=== PATIENT | female | born 1945 | race Caucasian/White ===

== ENCOUNTER 2023-07-03 16:07 | Inpatient (IN) ==
--- NOTE | 2023-07-03 16:27 | ED Triage Note ---
Date of Service July 03, 2023 History of Present Illness This patient was briefly evaluated while in triage. An abbreviated physical exam was performed. This patient is a 77-year-old Female who presents to the ED for evaluation of abdominal pain. She notes pain to the R side of the abdomen. Started after lunch time today. Pain persists. No hx of bowel blockage or heart attack. She notes vomit, white mucus like. Physical Exam GENERAL: 77 year old female. In no acute distress. SKIN: No lesions or rashes. HEART: Regular rate and rhythm. LUNGS: Clear to auscultation. ABDOMEN: Bowel sounds normoactive. No guarding or rigidity. RUQ abd ttp noted. NEURO: Alert and oriented. No deficits. MUSCULOSKELETAL: No deformities to inspection of the extremities. PSYCH: Patient is pleasant and answers all questions appropriately. Initial orders for labs and / or imaging were placed and patient was placed in the waiting area until a bed is available. Please see further documentation for the full ED course.
[2023-07-03 16:56] LABS: Basophils # (auto) 0.05 K/uL (0.00-0.20); Basophils % (auto) 0.5 %; Eosinophils # (auto) 0.01 K/uL (0.00-0.50); Eosinophils % (auto) 0.1 %; Hematocrit (blood only) 48.6 % (37.0-47.0); Hemoglobin 16.5 g/dl (12.0-16.0); Immature Granulocytes % (auto) 0.9 %; Lymphocytes # (auto) 0.78 K/uL (1.20-3.40); Lymphocytes % (auto) 7.1 %; Mean Corpuscular Hemoglobin 34.4 pg (25.0-34.0); Mean Corpuscular Volume 101.5 fL (80.0-100.0); Mean Platelet Volume 9.6 fL (9.4-12.4); Monocytes # (auto) 0.36 K/uL (0.11-0.59); Monocytes % (auto) 3.3 %; Neutrophils # (auto) 9.69 K/uL (1.40-6.50); Neutrophils % (auto) 88.1 %; Platelet Count 592 K/uL (130-400); RDW Coefficient of Variation 13.5 % (11.5-14.5); RDW Standard Deviation 50.8 fL (36.4-46.3); Red Blood Count 4.79 M/uL (4.20-5.40); White Blood Count 10.99 K/ul (4.8-10.8)
[2023-07-03 17:04] LABS: Albumin Globulin Ratio 1.6 (0.9-2); Albumin Level 4.6 gm/dl (3.4-5.0); Bilirubin,Total 0.5 mg/dl (0.2-1.0); Calcium 10.3 mg/dl (8.6-10.3); Creatinine Clr Calc Pharmacy 46.4 ml/min; Est GFR (African American) 68.3 ml/min; Est GFR (Non-African American) 58.9 ml/min; Globulin 2.8 gm/dl (2.5-4.0); Potassium 4.3 mmol/L (3.5-5.1); Total Protein 7.4 gm/dl (6.0-8.3)
[2023-07-03] MEDS ORDERED: ONDANSETRON INJ 2 MG/ML 2 ML VIAL IV STA (17:45)
[2023-07-03] MEDS ORDERED: OPTIRAY 320 100ml IV ONE (18:01)
--- NOTE | 2023-07-03 19:04 | Emergency Department Note ---
Impression & Plan Abdominal pain, RLQ, Non-ST elevation [place] (NSTEMI) ED Provider Note HISTORY OF PRESENT ILLNESS: Patient is a 77-year-old female presenting with right lower quadrant abdominal pain. Patient reports that she developed pain around her periumbilical region after lunch that radiated into her right lower quadrant. Pain persisted throughout the afternoon, prompting presentation to the ER. She had an episode of vomiting in the waiting room. Denies any chest pain or shortness of breath. Reports she always has diarrhea. Denies any history of abdominal surgeries. She is on Eliquis for previous history of DVT. Denies any history of cardiac stents. Denies any recent fevers. Denies any recent travel. Denies any recent sick contact exposure. ROS: as above PHYSICAL EXAM: Constitutional: Patient appears in no acute distress. HENT: Head: Normocephalic and atraumatic. Eyes: EOMI, PERRL Mouth/Throat: Mucous membranes moist. Neck: Trachea midline. Neck supple. Cardiovascular: RRR, No murmurs, rubs or gallops. Intact distal pulses. Pulmonary/Chest: No respiratory distress. Breath sounds clear and equal bilaterally. No wheezes or rales. Abdominal: Abdomen soft, no rebound or guarding. RLQ TTP Musculoskeletal: No edema, tenderness or deformity noted. Skin: Warm and dry. No rash, erythema, pallor or cyanosis Psychiatric: Appropriate mood and affect for situation. Neurological: Alert and keenly responsive. CN II-XII grossly intact, moving all extremities equally and fully. MDM: - Vitals signs showed hypertension and bradycardia. - History obtained via patient. Patient presents with right lower quadrant abdominal pain and vomiting. Patient reports that just after lunchtime she developed pain around her periumbilical region that radiated into her right lower quadrant. She had a few episodes of vomiting today. Denies any chest pain or shortness of breath. Denies any history of abdominal surgeries. She has chronic diarrhea. Denies any fevers in the last few days. Denies any history of cardiac stents. She does have a history of DVT and is on Eliquis. - Chronic conditions affecting care: breast cancer; BAYLEE; GERD; essential thrombocytosis - Differential diagnoses include, but are not limited to: appendicitis; diverticulitis; ureteral calculi; UTI; ACS - Order placed for continuous cardiac monitoring. At this time, monitor showed rate of 77 bpm with normal sinus rhythm, per my interpretation. - External medical records reviewed. Patient's primary care visit note from [facility] dated 05/15/2023 was reviewed. Patient was seen for her annual follow-up appointment. - EKG reviewed by myself showed normal sinus rhythm. Rate bradycardic at 48 bpm. QTc 432. No acute ischemic changes. No previous EKGs to compare to. - Laboratory workup interpreted by myself showed slight leukocytosis (WBC 10.99); thrombocytosis (plt 592); stable electrolytes; elevated troponin (109); normal lipase - CT abdomen/pelvis with IV contrast showed normal appendix and no bowel obstruction. Noted to have scattered small and large bowel air-fluid levels which may represent an ileus. - Patient had vomited in waiting room and was given 4 mg IV zofran. On my initial assessment, patient reports no further nausea and declines any pain medications at this time. - Discussed results with the patient. She reports that she has not had an echocardiogram or cardiac work-up. She is chest pain-free in the emergency department - Heart score 5 (History +0 slightly suspicious; EKG +0; Age +2; Risk factors +1; Initial troponin +2), amounting to a moderate score. - Discussion was had with out of school hours care worker about patient's case and need for admission - Hospitalist consulted for admission - Patient admitted to [facility] Hospitalist service for further evaluation and management. ASSESSMENT AND PLAN: Diagnosis: RLQ abdominal pain; NSTEMI Plan: admit Past Med/Surg History Social History Smoking Status: Former smoker Feels Safe at Home: Yes Allergies Allergies Allergy/AdvReac Type Severity Reaction Status Date / Time adhesive tape Allergy Unknown Verified 07/03/23 19:32 mold Allergy Unknown Verified 07/03/23 19:32 Home Meds Home Medications Medication Instructions Recorded Confirmed apixaban 5 mg tablet (Eliquis) 5 mg PO AMHS 07/03/23 07/03/23 dicyclomine 10 mg capsule 10 mg PO AMHS PRN Abdominal 07/03/23 07/03/23 Discomfort fluticasone propionate 50 2 spray intranasal DAILY 07/03/23 07/03/23 mcg/actuation nasal spray,suspension hydroxyurea 500 mg capsule See Rx Instructions .Route .COMPLEX 07/03/23 07/03/23 ipratropium bromide 21 mcg (0.03 2 spray intranasal AMHS PRN 07/03/23 07/03/23 %) nasal spray rhinitis multivitamin (Multiple Vitamins 1 tab PO DAILY 07/03/23 07/03/23 tablet) omeprazole 20 mg capsule,delayed 20 mg PO HS 07/03/23 07/03/23 release Results & Data (ED) Vital Signs Vital Signs - 24 hr 07/03/23 16:26 07/03/23 18:48 07/03/23 19:03 Temperature 36.4 C L Temperature Source Temporal Artery Scan Pulse Rate 56 L 77 Pulse Rate [Apical] 69 Respiratory Rate 16 20 Respiratory Effort / Characteristics Non-Labored Spontaneous Respiratory Depth Normal Blood Pressure 147/69 H Blood Pressure [Left Arm] 139/67 Blood Pressure Mean 95 Blood Pressure Mean [Left Arm] 91 Pulse Oximetry 100 97 Oxygen Delivery Method Room Air Room Air Sepsis Recent Fever Within 48 Hours No Sepsis New/Unexplained Change in Mental Status No Sepsis Action Taken by Nursing No Action Required Laboratory Data 07/03/23 16:32 07/03/23 16:32 Lab Results 07/03/23 Range/Units 16:32 WBC 10.99 H (4.8-10.8) K/ul RBC 4.79 (4.20-5.40) M/uL Hgb 16.5 H (12.0-16.0) g/dl Hct 48.6 H (37.0-47.0) % MCV 101.5 H (80.0-100.0) fL MCH 34.4 H (25.0-34.0) pg MCHC 34.0 (32.0-36.0) g/dL RDW Std Deviation 50.8 H (36.4-46.3) fL RDW Coeff of Melissa 13.5 (11.5-14.5) % Plt Count 592 H (130-400) K/uL MPV 9.6 (9.4-12.4) fL Immature Gran % (Auto) 0.9 % Neut % (Auto) 88.1 % Lymph % (Auto) 7.1 % [place] % (Auto) 3.3 % Eos % (Auto) 0.1 % Baso % (Auto) 0.5 % Neut # (Auto) 9.69 H (1.40-6.50) K/uL Lymph # (Auto) 0.78 L (1.20-3.40) K/uL [place] # (Auto) 0.36 (0.11-0.59) K/uL Eos # (Auto) 0.01 (0.00-0.50) K/uL Baso # (Auto) 0.05 (0.00-0.20) K/uL Immature Gran # (Auto) 0.10 (0.01-0.20) K/uL Sodium 141 (136-145) mmol/L Potassium 4.3 (3.5-5.1) mmol/L Chloride 102 (98-107) mmol/L Carbon Dioxide 29 (21-32) mmol/L Anion Gap 10 (3-11) BUN 16 (6-23) mg/dl Creatinine 0.94 (0.6-1.2) mg/dl Est Cr Clr Drug Dosing 46.4 ml/min Est GFR ( Amer) 68.3 ml/min Est GFR (Non-Af Amer) 58.9 ml/min BUN/Creatinine Ratio 17.0 (10-20) Glucose 150 H (70-99(Fasting)) mg/dl Calcium 10.3 (8.6-10.3) mg/dl Total Bilirubin 0.5 (0.2-1.0) mg/dl AST 24 (13-39) U/L ALT 16 (7-52) U/L Alkaline Phosphatase 65 (34-104) U/L Troponin I High Sens 109.0 H* (0-14) pg/ml Total Protein 7.4 (6.0-8.3) gm/dl Albumin 4.6 (3.4-5.0) gm/dl Globulin 2.8 (2.5-4.0) gm/dl Albumin/Globulin Ratio 1.6 (0.9-2) Lipase 11 (11-82) U/L Administered Medications Discontinued Medications Ioversol (Optiray 320 100ml) 93 ml IV ONCE ONE Stop: 07/03/23 18:02 Last Admin: 07/03/23 18:01 Dose: 93 ml Documented By: ESSENCE Ondansetron HCl (Ondansetron Inj 2 Mg/Ml 2 Ml Vial) 4 mg IV NOW STA Stop: 07/03/23 17:46 Last Admin: 07/03/23 17:50 Dose: 4 mg Documented By: AARON Imaging Data Radiologist's Impression: Abdomen/Pelvis CT 07/03/23 16:[address] WITH IV CONTRAST CT DOSE: 736.38 mGy.cm HISTORY: Acute right upper quadrant abdominal pain R periumbilical/RUQ abd pain TECHNIQUE: Multiaxial CT images of the abdomen and pelvis were performed following the IV administration of 93 cc of Optiray, A dose lowering technique was utilized adhering to the principles of ALARA. COMPARISON STUDY: GI study 09/16/2021 FINDINGS: Clear lung bases. No free air identified. The spleen is enlarged measuring up to 13.5 cm is in length. There is a small amount of abdominal pelvic ascites. Unremarkable pancreas and adrenal glands. 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 Unremarkable gallbladder and mildly enlarged liver. Patent portal vein. Cysts of the kidneys measure up to 5.8 cm on the left. No hydronephrosis. Unremarkable urinary bladder. Hysterectomy. No abdominal aortic aneurysm or lymphadenopathy. Postoperative changes at the gastroesophageal junction. Mild mesenteric edema. Scattered small and large bowel air-fluid levels. Limited study without the use of enteric contrast. Noninflamed appendix. Unremarkable soft tissues. Lumbar levoscoliosis. No acute fracture. IMPRESSION: 1. No bowel obstruction or pneumoperitoneum. 2. Scattered small and large bowel air-fluid levels may be physiologic or represent an ileus/enteritis. 3. Small volume of abdominopelvic ascites. 4. Limited exam without use of enteric contrast. No CT evidence of acute appendicitis. 5. Mild Hepatosplenomegaly. ACT 112: Negative or not required by law. The above report was generated using voice recognition software. It may contain grammatical, syntax or spelling errors. Electronically signed by: Gulshan Santamaria M.D. 07/03/2023 7:04 PM Discharge Plan Visit Data Chief Complaint: Abdominal Pain Stated Complaint: ABDOMINAL PAIN, CHILLS, HOT FLASHES, CONGESTION ED Provider: Linda Pradhan Discharge Problem: Abdominal pain, RLQ, Non-ST elevation MN (NSTEMI) Forms Stand Alone Forms: [employer] [facility] [employer] Prescriptions Prescriptions: No Action hydroxyurea 500 mg capsule See Rx Instructions .ROUTE .COMPLEX Rx Instructions: take 1 capsule by mouth alternating with 2 capsules by mouth every other day taking 6 days a week omeprazole 20 mg capsule,delayed release(DR/EC) 20 mg PO HS Eliquis 5 mg tablet 5 mg PO AMHS multivitamin [Multiple Vitamins] Tablet 1 tab PO DAILY dicyclomine 10 mg capsule 10 mg PO AMHS PRN (Reason: Abdominal Discomfort) Rx Instructions: ordered routine...pt takes prn fluticasone propionate 50 mcg/actuation spray,suspension 2 spray INTRANASAL DAILY ipratropium bromide 21 mcg (0.03 %) spray,non-aerosol 2 spray INTRANASAL AMHS PRN (Reason: rhinitis) Referrals Referrals: Andressa Bernal MD [Primary Care Provider] -
--- NOTE | 2023-07-03 19:06 | CT Scan Report ---
ABDOMEN AND PELVIS CT WITH IV CONTRAST CT DOSE: 736.38 mGy.cm HISTORY: Acute right upper quadrant abdominal pain R periumbilical/RUQ abd pain TECHNIQUE: Multiaxial CT images of the abdomen and pelvis were performed following the IV administrat ion of 93 cc of Optiray, A dose lowering technique was utilized adhering to the principles of ALARA. COMPARISON STUDY: GI study 09/16/2021 FINDINGS: Clear lung bases. No free air identified. The spleen is enlarged measuring up to 13.5 cm is in length. There is a small amount of abdominal pelvic ascites. Unremarkable pancreas and adrenal gl ands. 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 Unremarkable gallb ladder and mildly enlarged liver. Patent portal vein. Cysts of the kidneys measure up to 5.8 cm on the left. No hydronephrosis. Unremarkable urinary bladde r. Hysterectomy. No abdominal aortic aneurysm or lymphadenopathy. Postoperative changes at the gastro esophageal junction. Mild mesenteric edema. Scattered small and large bowel air-fluid levels. Limited study without the use of enteric contrast. Noninflamed appendix. Unremarkable soft tissues. Lumbar l evoscoliosis. No acute fracture. IMPRESSION: 1. No bowel obstruction or pneumoperitoneum. 2. Scattered small and large bowel air-fluid levels may be physiologic or represent an ileus/enteriti s. 3. Small volume of abdominopelvic ascites. 4. Limited exam without use of enteric contrast. No CT evidence of acute appendicitis. 5. Mild Hepatosplenomegaly. ACT 112: Negative or not required by law. The above report was generated using voice recognition software. It may contain grammatical, syntax o r spelling errors. Electronically signed by: Gulshan Santamaria M.D. 07/03/2023 7:04 PM
[2023-07-03] MEDS ORDERED: ASPIRIN CHEW 324 MG PO STA (19:57)
--- NOTE | 2023-07-03 21:18 | History & Physical Report ---
Date of Service July 03, 2023 Assessment & Plan (1) Non-ST elevation [place] (NSTEMI): Plan: 77-year-old female with past med significant for paraesophageal hernia s/p repair, obstructive sleep apnea, GERD, mixed stress and urge incontinence, essential thrombocytosis, history of right breast cancer, history of basal cell carcinoma s/p excision presents with abdominal pain and found to have elevated troponin. Non-ST elevated MA Initial troponin 109. Troponin trending up to 299 and 470 Patient is currently symptomatic EKG sinus bradycardia but no other acute findings will follow repeat ekg Patient is already on Eliquis Close monitoring telemetry Serial cardiac enzymes and echo Cardiology consulted Obstructive sleep apnea CPAP nightly Abdominal pain CT scan showing possible ileus versus enteritis Currently pain improved We will keep her n.p.o. IV fluids IV morphine as needed Close monitor History of thrombocytosis On hydroxyurea History of right breast cancer S/p right partial mastectomy and chemo radiation 1993 History of DVT On Eliquis DVT prophylaxis On Eliquis Disposition telemetry floor Full code History of Present Illness Chief Complaint: Abdominal pain Primary Care Provider: Andressa Bernal MD 77-year-old female with past med history significant for paraesophageal hernia s/p repair, obstructive sleep apnea, GERD, mixed stress and urge incontinence, essential thrombocytosis, history of right breast cancer, history of basal cell carcinoma s/p excision presents with abdominal pain. Patient states pain started after lunch in the umbilical region and then in right lower quadrant 10/10 in severity. Associated with some nausea. No diarrhea. Denies any chest pain or shortness of breath. No fevers. Has some runny nose. Currently pain improved. Currently resting comfortably and hemodynamically stable. Past medical history. As mentioned above Past surgical history. Right breast biopsy. Left breast biopsy. Colonoscopy. EGD. Laparoscopic insertion of esophageal sphincter. Right partial mastectomy. Paraesophageal hernia repair. Right breast radiation treatment. [place] lymph node biopsy. Social history. Quit smoking 1973. Smoked 0.1 packs a day for 10 years. Alcohol socially. No drug use. Family history. Daughter has allergies. Salience Sjogren's. Mother had breast cancer. Hypertension. Stroke. Allergies Allergy/AdvReac Type Severity Reaction Status Date / Time adhesive tape Allergy Unknown Verified 07/03/23 19:32 mold Allergy Unknown Verified 07/03/23 19:32 Home Medications Medication Instructions Recorded Confirmed Type apixaban 5 mg tablet (Eliquis) 5 mg PO AMHS 07/03/23 07/03/23 History dicyclomine 10 mg capsule 10 mg PO AMHS PRN Abdominal 07/03/23 07/03/23 History Discomfort fluticasone propionate 50 2 spray intranasal DAILY 07/03/23 07/03/23 History mcg/actuation nasal spray,suspension hydroxyurea 500 mg capsule See Rx Instructions .Route .COMPLEX 07/03/23 07/03/23 History ipratropium bromide 21 mcg (0.03 2 spray intranasal AMHS PRN 07/03/23 07/03/23 History %) nasal spray rhinitis multivitamin (Multiple Vitamins 1 tab PO DAILY 07/03/23 07/03/23 History tablet) omeprazole 20 mg capsule,delayed 20 mg PO HS 07/03/23 07/03/23 History release Past Med/Surg History Social History Smoking Status: Never smoker Hx Alcohol Use: Yes Alcohol type: wine Hx Substance Use: No Preferred Language: [employer] Operator Required: No Beliefs That Will Affect Care: None Current Living Situation: Alone Other Information That Helps Us Care for You: No Feels Safe at Home: Yes Safety Concerns: Feels Safe At This Time Review of Systems Review of Systems: All systems reviewed & are unremarkable except as noted in HPI & below Physical Exam Physical Exam: General- Not in distress. Head- atraumatic Eyes- PERRL. ENT- oropharynx clear Neck- supple, no JVD. Lungs- clear to auscultation no wheezing or crackles. Heart- regular rhythm; no murmur, no gallop. Abdomen- normal bowel sounds, soft, mild diffuse discomfort,no guarding, no distension Extremities- no pretibial edema, no erythema seen. Neuro- alert, oriented x 3; PERRL, no facial palsy; no dysarthria. Skin- warm & dry Results & Data Results & Data Vital Signs (Past 12 Hours) Vital Signs Temp Pulse Pulse Resp BP BP Pulse Ox 07/03/23 20:00 76 16 153/84 H 95 07/03/23 19:03 77 07/03/23 18:48 69 20 139/67 97 07/03/23 16:26 36.4 C L 56 L 16 147/69 H 100 O2 Del Method 07/03/23 20:00 Room Air 07/03/23 19:03 07/03/23 18:48 Room Air 07/03/23 16:26 Room Air Diagnostic Findings Laboratory Results WBC 10.99 K/ul (4.8-10.8) H 07/03/23 16:32 RBC 4.79 M/uL (4.20-5.40) 07/03/23 16:32 Hgb 16.5 g/dl (12.0-16.0) H 07/03/23 16:32 Hct 48.6 % (37.0-47.0) H 07/03/23 16:32 MCV 101.5 fL (80.0-100.0) H 07/03/23 16: MCH 34.4 pg (25.0-34.0) H 07/03/23 16: MCHC 34.0 g/dL (32.0-36.0) 07/03/23 16: RDW Std Deviation 50.8 fL (36.4-46.3) H 07/03/23 16: RDW Coeff of Melissa 13.5 % (11.5-14.5) 07/03/23 16: Plt Count 592 K/uL (130-400) H 07/03/23 16: MPV 9.6 fL (9.4-12.4) 07/03/23 16:32 Immature Gran % (Auto) 0.9 % 07/03/23 16: Neut % (Auto) 88.1 % 07/03/23 16: Lymph % (Auto) 7.1 % 07/03/23 16: [place] % (Auto) 3.3 % 07/03/23 16: Eos % (Auto) 0.1 % 07/03/23 16:32 Baso % (Auto) 0.5 % 07/03/23 16: Neut # (Auto) 9.69 K/uL (1.40-6.50) H 07/03/23 16: Lymph # (Auto) 0.78 K/uL (1.20-3.40) L 07/03/23 16:32 [place] # (Auto) 0.36 K/uL (0.11-0.59) 07/03/23 16: Eos # (Auto) 0.01 K/uL (0.00-0.50) 07/03/23 16:32 Baso # (Auto) 0.05 K/uL (0.00-0.20) 07/03/23 16:32 Immature Gran # (Auto) 0.10 K/uL (0.01-0.20) 07/03/23 16:32 Sodium 141 mmol/L (136-145) 07/03/23 16:32 Potassium 4.3 mmol/L (3.5-5.1) 07/03/23 16:32 Chloride 102 mmol/L (98-107) 07/03/23 16:32 Carbon Dioxide 29 mmol/L (21-32) 07/03/23 16:32 Anion Gap 10 (3-11) 07/03/23 16:32 BUN 16 mg/dl (6-23) 07/03/23 16:32 Creatinine 0.94 mg/dl (0.6-1.2) 07/03/23 16:32 Est Cr Clr Drug Dosing 46.4 ml/min 07/03/23 16:32 Est GFR ( Amer) 68.3 ml/min 07/03/23 16:32 Est GFR (Non-Af Amer) 58.9 ml/min 07/03/23 16:32 BUN/Creatinine Ratio 17.0 (10-20) 07/03/23 16:32 Glucose 150 mg/dl (70-99(Fasting)) H 07/03/23 16:32 Calcium 10.3 mg/dl (8.6-10.3) 07/03/23 16:32 Total Bilirubin 0.5 mg/dl (0.2-1.0) 07/03/23 16:32 AST 24 U/L (13-39) 07/03/23 16:32 ALT 16 U/L (7-52) 07/03/23 16:32 Alkaline Phosphatase 65 U/L (34-104) 07/03/23 16:32 Troponin I High Sens 299.0 pg/ml (0-14) H* D 07/03/23 19:10 Total Protein 7.4 gm/dl (6.0-8.3) 07/03/23 16:32 Albumin 4.6 gm/dl (3.4-5.0) 07/03/23 16:32 Globulin 2.8 gm/dl (2.5-4.0) 07/03/23 16:32 Albumin/Globulin Ratio 1.6 (0.9-2) 07/03/23 16:32 Lipase 11 U/L (11-82) 07/03/23 16:32 Impressions Abdomen/Pelvis CT 07/03/23 16:[address] WITH IV CONTRAST CT DOSE: 736.38 mGy.cm HISTORY: Acute right upper quadrant abdominal pain R periumbilical/RUQ abd pain TECHNIQUE: Multiaxial CT images of the abdomen and pelvis were performed following the IV administration of 93 cc of Optiray, A dose lowering technique was utilized adhering to the principles of ALARA. COMPARISON STUDY: GI study 09/16/2021 FINDINGS: Clear lung bases. No free air identified. The spleen is enlarged measuring up to 13.5 cm is in length. There is a small amount of abdominal pelvic ascites. Unremarkable pancreas and adrenal glands. 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 Unremarkable gallbladder and mildly enlarged liver. Patent portal vein. Cysts of the kidneys measure up to 5.8 cm on the left. No hydronephrosis. Unremarkable urinary bladder. Hysterectomy. No abdominal aortic aneurysm or lymphadenopathy. Postoperative changes at the gastroesophageal junction. Mild mesenteric edema. Scattered small and large bowel air-fluid levels. Limited study without the use of enteric contrast. Noninflamed appendix. Unremarkable soft tissues. Lumbar levoscoliosis. No acute fracture. IMPRESSION: 1. No bowel obstruction or pneumoperitoneum. 2. Scattered small and large bowel air-fluid levels may be physiologic or represent an ileus/enteritis. 3. Small volume of abdominopelvic ascites. 4. Limited exam without use of enteric contrast. No CT evidence of acute appendicitis. 5. Mild Hepatosplenomegaly. ACT 112: Negative or not required by law. The above report was generated using voice recognition software. It may contain grammatical, syntax or spelling errors. Electronically signed by: Gulshan Santamaria M.D. 07/03/2023 7:04 PM ECG Additional Comments: ECG. Sinus bradycardia rate of 48. No acute ST changes seen. Code Status & VTE Plan VTE Prophylaxis Plan VTE Prophylaxis will be ordered: Yes
[2023-07-03] MEDS ORDERED: APIXABAN 5 MG TABLET PO STA (21:33)
[2023-07-03] MEDS ORDERED: NITROGLYCERIN SL 0.4 MG/TAB TAB SL PRN (22:26)
[2023-07-03] MEDS ORDERED: DICYCLOMINE HCL 10 MG CAP PO PRN (22:26)
[2023-07-03] MEDS ORDERED: MoRPHine SULFATE 4 MG/ML 1 ML CARP\\VIAL IV PRN (22:26)
[2023-07-03] MEDS ORDERED: PANTOprazole 40 MG TAB PO SCH (22:26)
[2023-07-03] MEDS ORDERED: ACETAMINOPHEN 325 MG TAB PO PRN (22:26)
[2023-07-03] MEDS ORDERED: ONDANSETRON INJ 2 MG/ML 2 ML VIAL IV PRN (22:26)
[2023-07-03 22:31] LABS: Appearance Urine Clear (Clear); Bilirubin Urine Negative (Negative); Blood Urine Negative (Negative); Color Urine Yellow; Glucose Urine UA Negative (Negative); Ketones Urine Negative (Negative); Leukocyte Esterase Urine Negative (Negative); Nitrite Urine Negative (Negative); Protein Urine Negative (Negative); Specific Gravity Urine > 1.045 (1.000-1.030); Urobilinogen Urine Negative (Negative)
[2023-07-03] MEDS: SODIUM CHLORIDE 0.9% 1,000 ML IV SCH (22:36)
[2023-07-03] MEDS ORDERED: IPRATROPIUM BROMIDE NASAL SPRAY 0.06% 15ML NAE PRN (22:45)
[2023-07-03] MEDS: HYDROXYUREA 500 MG CAP PO SCH (23:17)
[2023-07-04] MEDS: ASPIRIN 81 MG ECTAB PO SCH (08:05)
[2023-07-04] MEDS: MULTIVITAMIN TAB PO SCH (08:06)
[2023-07-04] MEDS: FLUTICASONE PROPIONATE NA SPR 16 GM BTL SCH (08:06)
[2023-07-04 09:00] LABS: BUN Creatinine Ratio 16.7 (10-20); Calcium 8.5 mg/dl (8.6-10.3); Chol HDL Ratio 1.8 (0-5); Creatinine Clr Calc Pharmacy 48.5 ml/min; Est GFR (African American) 85.6 ml/min; Est GFR (Non-African American) 73.8 ml/min; Magnesium 1.8 mg/dl (1.7-2.4); Potassium 3.9 mmol/L (3.5-5.1)
[2023-07-04] MEDS ORDERED: APIXABAN 5 MG TABLET PO SCH (09:00)
[2023-07-04 09:04] LABS: Basophils # (auto) 0.03 K/uL (0.00-0.20); Basophils % (auto) 0.4 %; Eosinophils # (auto) 0.01 K/uL (0.00-0.50); Eosinophils % (auto) 0.1 %; Hematocrit (blood only) 38.2 % (37.0-47.0); Hemoglobin 13.2 g/dl (12.0-16.0); Immature Granulocytes # (auto) 0.04 K/uL (0.01-0.20); Immature Granulocytes % (auto) 0.6 %; Lymphocytes # (auto) 0.72 K/uL (1.20-3.40); Lymphocytes % (auto) 10.4 %; Mean Corpuscular Hemoglobin 34.6 pg (25.0-34.0); Mean Corpuscular Hgb Conc 34.6 g/dL (32.0-36.0); Mean Corpuscular Volume 100.3 fL (80.0-100.0); Mean Platelet Volume 9.7 fL (9.4-12.4); Monocytes # (auto) 0.39 K/uL (0.11-0.59); Monocytes % (auto) 5.7 %; Neutrophils % (auto) 82.8 %; Platelet Count 380 K/uL (130-400); RDW Standard Deviation 51.4 fL (36.4-46.3); Red Blood Count 3.81 M/uL (4.20-5.40); White Blood Count 6.89 K/ul (4.8-10.8)
--- NOTE | 2023-07-04 09:06 | Electrocardiogram Report ---
Test Reason : Blood Pressure : / mmHG Vent. Rate : 075 BPM Atrial Rate : 075 BPM P-R Int : 156 ms QRS Dur : 080 ms QT Int : 398 ms P-R-T Axes : 073 004 041 degrees QTc Int : 444 ms Poor data quality, interpretation may be adversely affected Normal sinus rhythm Normal ECG When compared with ECG of 03-JUL-2023 21:48, No significant change Confirmed by Darrell Munoz ([id number]) on 07/04/2023 9:06:34 AM Referred By: REFERRED SELF Confirmed By:Darrell Munoz
--- NOTE | 2023-07-04 09:06 | Electrocardiogram Report ---
Test Reason : Blood Pressure : / mmHG Vent. Rate : 048 BPM Atrial Rate : 048 BPM P-R Int : 152 ms QRS Dur : 082 ms QT Int : 484 ms P-R-T Axes : 072 045 082 degrees QTc Int : 432 ms Sinus bradycardia Otherwise normal ECG No previous ECGs available Confirmed by Darrell Munoz ([id number]) on 07/04/2023 9:06:16 AM Referred By: REFERRED SELF Confirmed By:Darrell Munoz
--- NOTE | 2023-07-04 10:51 | Cardiology Progress Note ---
Date of Service July 04, 2023 Assessment & Plan Admission and Anticipated Discharge Date Admission Date: July 03, 2023 Supervising Physician Co-Signing Physician Notes Attending Staff: Pt seen and evaluated with AP Staff Concur with any observations and plans 77 yo woman presenting with epigastric discomfort * bubble/pressure in epigastric region * duration - hours * discomfort returned in AM on 07/04/2023 * Troponin elevated * Repeat Troponin pending * ECHO - normal LVEF - no WMA * EKG - WNL Med HX: * Paraesophageal hernia s/p surgical repair * R breast CA * Thrombocytosis Plans: * Elevation in Troponin consistent with NSTEMI * STOP DOAC * Start Heparin (no major bleeding) * Continue ASA 81 mg po per day * SBP marginal * Considering Low-dose beta israel when SBP allows. * LDL 37 * Start Crestor 20 mg po per day * NPO - * Will discuss with interventional Cardiology Mitesh Riley Subjective Events overnight: + Epigastric discomfort PACs - no VT Subjective: + Epigastric discomfort Review of Systems Review of Systems: All systems reviewed & are unremarkable except as noted in HPI & below Physical Exam Physical Exam: Thin woman in NAD No elevation in JVP S1S2 CTA B No C/C/E Results & Data Vital Signs (Past 12 Hours) Vital Signs Temp Pulse Pulse Resp BP Pulse Ox O2 Del Method 07/04/23 07:49 36.9 C 70 20 105/65 95 Room Air 07/04/23 07:00 73 07/04/23 02:59 36.9 C 69 16 115/71 94 Room Air 07/03/23 23:36 89 07/03/23 23:00 36.7 C 69 18 131/80 94 Room Air Laboratory Results Cardiac Enzymes 07/03/23 07/03/23 07/03/23 Range/Units 16:32 19:10 20:49 AST 24 (13-39) U/L Troponin I High Sens 109.0 H* 299.0 H* D 470.8 H* D (0-14) pg/ml Lipids 07/04/23 Range/Units 08:17 Triglycerides 117 (0-150) mg/dl Cholesterol 132 (0-200) mg/dl HDL Cholesterol 72 mg/dl Cholesterol/HDL Ratio 1.8 (0-5) CBC 07/03/23 07/04/23 Range/Units 16:32 08:17 WBC 10.99 H 6.89 (4.8-10.8) K/ul RBC 4.79 3.81 L (4.20-5.40) M/uL Hgb 16.5 H 13.2 D (12.0-16.0) g/dl Hct 48.6 H 38.2 (37.0-47.0) % Plt Count 592 H 380 (130-400) K/uL Neut # (Auto) 9.69 H 5.70 (1.40-6.50) K/uL Lymph # (Auto) 0.78 L 0.72 L (1.20-3.40) K/uL [place] # (Auto) 0.36 0.39 (0.11-0.59) K/uL Eos # (Auto) 0.01 0.01 (0.00-0.50) K/uL Baso # (Auto) 0.05 0.03 (0.00-0.20) K/uL Comprehensive Metabolic Panel 07/03/23 07/04/23 Range/Units 16:32 08:17 Sodium 141 141 (136-145) mmol/L Potassium 4.3 3.9 (3.5-5.1) mmol/L Chloride 102 108 H (98-107) mmol/L Carbon Dioxide 29 29 (21-32) mmol/L BUN 16 13 (6-23) mg/dl Creatinine 0.94 0.78 (0.6-1.2) mg/dl Glucose 150 H 92 (70-99(Fasting)) mg/dl Calcium 10.3 8.5 L (8.6-10.3) mg/dl AST 24 (13-39) U/L ALT 16 (7-52) U/L Alkaline Phosphatase 65 (34-104) U/L Total Protein 7.4 (6.0-8.3) gm/dl Albumin 4.6 (3.4-5.0) gm/dl Intake and Output 07/03/23 07/04/23 07/04/23 22:59 06:59 14:59 Output Total 175 / 175 Balance -175 / -175 Output: Urine 175 / 175 Other: Weight 56.4 kg 56.4 kg Weight Measurement Method Standing Scale Standing Scale Diagnostic Findings ECHOcardiogram: 07/04/2023 LVEF 60-65% No WMA RV function is WNL No major valvular pathology EKGs 07-03-2023 + 07-04-2023- reviewed - no major ischemic changes noted ABD CT: ? Ileus, S/P Surgical intervention. No other major pathology Medications Administered Current Inpatient Medications Acetaminophen (Acetaminophen 325 Mg Tab) 650 mg PO Q4H PRN PRN Reason: Pain or Fever Stop: 08/02/23 22:25 Apixaban (Apixaban 5 Mg Tablet) 5 mg PO [facility] PEDRO Stop: 08/03/23 08:59 Last Admin: 07/04/23 08:06 Dose: 5 mg Aspirin (Aspirin 81 Mg Ectab) 81 mg PO DAILY PEDRO Stop: 08/03/23 08:59 Last Admin: 07/04/23 08:05 Dose: 81 mg Dicyclomine HCl (Dicyclomine Hcl 10 Mg Cap) 10 mg PO AMHS PRN PRN Reason: Abdominal Discomfort Stop: 08/02/23 22:25 Fluticasone Propionate (Fluticasone Propionate Na Spr 16 Gm Btl) 2 sprays NA DAILY COUNT INCLUDES THE [facility] Stop: 08/03/23 08:59 Last Admin: 07/04/23 08:06 Dose: 2 sprays Hydroxyurea (Hydroxyurea 500 Mg Cap) 1,000 mg PO MoWeFr@2100 COUNT INCLUDES THE [facility] Stop: 08/02/23 22:59 Last Admin: 07/03/23 23:17 Dose: 1,000 mg Hydroxyurea (Hydroxyurea 500 Mg Cap) 1,000 mg PO TuThSa@2100 COUNT INCLUDES THE [facility] Stop: 08/03/23 20:59 Sodium Chloride (Nss) 1,000 mls @ 80 mls/hr IV .[id number] COUNT INCLUDES THE [facility] Stop: 08/02/23 22:25 Last Admin: 07/03/23 22:36 Dose: 80 mls/hr Ipratropium [place] (Ipratropium [place] Nasal [place] 0.06% 15ml) 1 sprays VANESSA [facility] PRN PRN Reason: rhinitis Stop: 08/02/23 22:44 Morphine Sulfate (Morphine Sulfate 4 Mg/Ml 1 Ml Carp\Vial) 3 mg IV Q4H PRN PRN Reason: Pain Stop: 07/17/23 22:25 Multivitamins (Multivitamin Tab) 1 tab PO DAILY PEDRO Stop: 08/03/23 08:59 Last Admin: 07/04/23 08:06 Dose: 1 tab Nitroglycerin (Nitroglycerin Sl 0.4 Mg/Tab Tab) 0.4 mg SL Q5M PRN PRN Reason: Chest Pain Stop: 08/02/23 22:25 Ondansetron HCl (Ondansetron Inj 2 Mg/Ml 2 Ml Vial) 4 mg IV Q6H PRN PRN Reason: Nausea Stop: 08/02/23 22:25 Pantoprazole Sodium (Pantoprazole 40 Mg Tab) 40 mg PO HS PEDRO Stop: 08/02/23 22:25 Last Admin: 07/03/23 23:17 Dose: 40 mg
--- NOTE | 2023-07-04 10:57 | Electrocardiogram Report ---
Test Reason : Blood Pressure : / mmHG Vent. Rate : 064 BPM Atrial Rate : 064 BPM P-R Int : 154 ms QRS Dur : 074 ms QT Int : 414 ms P-R-T Axes : 080 019 074 degrees QTc Int : 427 ms Normal sinus rhythm Normal ECG When compared with ECG of 03-JUL-2023 16:31, No significant change Confirmed by Darrell Munoz ([id number]) on 07/04/2023 10:56:49 AM Referred By: REFERRED SELF Confirmed By:Darrell Munoz
[2023-07-04] MEDS ORDERED: ALUMINUM/MAGNESIUM SUSP 30 ML UDC PO STA (11:01)
[2023-07-04] MEDS: SODIUM CHLORIDE 0.9% 1,000 ML IV SCH (12:29)
[2023-07-04] MEDS ORDERED: Heparin IV Adult Wt-Based Low-Dose *NO* Bolus Protocol IV SCH (14:00)
[2023-07-04] MEDS: PANTOprazole 40 MG TAB PO SCH ×2 (14:11→20:55)
--- NOTE | 2023-07-04 15:27 | Hospitalist Progress Note ---
Date of Service July 04, 2023 Assessment & Plan (1) Non-ST elevation OR (NSTEMI): Plan: 77-year-old female with past med significant for paraesophageal hernia s/p repair, obstructive sleep apnea, GERD, mixed stress and urge incontinence, essential thrombocytosis, history of right breast cancer, history of basal cell carcinoma s/p excision presents with abdominal pain and found to have elevated troponin. Non-ST elevated OR Initial troponin 109.Troponin trending up to 299 and 470 Troponins pending those are taken at 8:17 AM and 3:27 PM EKG sinus bradycardia but no other acute findings Repeat EKG did not show any change Patient is already on Eliquis who is has been on hold and the patient is started with intravenous heparin Close monitoring telemetry Echo of the heart showed-LV is normal in size the LV all motion is normal EF 60 to 65%, right ventricular systolic function normal, left atrial size is normal and right atrial size is normal. Appreciate cardiology input and recommendation Has been on intravenous heparin and oral aspirin Going to have cardiac cath tomorrow Epigastric pain CT scan showing possible ileus versus enteritis Currently pain improved We will keep her n.p.o. IV fluids IV morphine as needed Could be atypical presentation of angina with elevation of the troponin and in female We will get ultrasound of the liver to rule out any gallstones Obstructive sleep apnea CPAP nightly History of thrombocytosis On hydroxyurea History of right breast cancer S/p right partial mastectomy and chemo radiation 1993 History of DVT On Eliquis DVT prophylaxis On Eliquis Eliquis is on hold and has been on intravenous heparin for possible cardiac cath in the morning Disposition telemetry floor Full code Admission and Anticipated Discharge Date Admission Date: July 03, 2023 Subjective 07/04/2023 The patient was seen and examined in telemetry unit in presence of the daughter Still complains to epigastric discomfort that goes around the belly No chest pain, palpitation or shortness of breath associated with the Review of Systems Review of Systems: All systems reviewed and are unremarkable except as noted below Cardiovascular: Additional Comments: No chest pain or palpitation Gastrointestinal: Epigastric discomfort and minimal tenderness Physical Exam Physical Exam: Lying in bed with some anxiety but no apparent distress Constitutional: well developed, well nourished, + ill appearing and average body habitus Eyes: PERRL, conjunctivae normal, anicteric sclerae ENMT: external ear and nose normal, oropharynx normal Neck: trachea midline, no thyromegaly Respiratory: no respiratory distress Auscultation: lungs clear to auscultation bilaterally Cardiovascular: Rate/Rhythm: regular rate and regular rhythm; not tachycardic Heart Sounds: normal S1 and normal S2; no murmur Extremities: no edema Gastrointestinal (Abdomen): Inspection/Auscultation: normal bowel sounds; abdomen not distended Percussion/Palpation: + abdomen tender (Tender in the epigastrium) and abdomen soft Musculoskeletal: No acute arthritis involving any of the joint Neurologic: normal touch/pain/proprioception and moves all extremities; no focal motor deficits Psychiatric: A+Ox3, euthymic affect Lymphatic: no cervical or axillary lymphadenopathy Results & Data Results & Data Vital Signs (Past 12 Hours) Vital Signs Temp Pulse Pulse Resp BP Pulse Ox O2 Del Method 07/04/23 11:36 36.6 C 77 21 126/77 95 Room Air 07/04/23 09:00 Room Air 07/04/23 07:49 36.9 C 70 20 105/65 95 Room Air 07/04/23 07:00 73 Laboratory Results Short CBC 07/03/23 07/04/23 Range/Units 16:32 08:17 WBC 10.99 H 6.89 (4.8-10.8) K/ul Hgb 16.5 H 13.2 D (12.0-16.0) g/dl Hct 48.6 H 38.2 (37.0-47.0) % Plt Count 592 H 380 (130-400) K/uL BMP 07/03/23 07/04/23 16:32 08:17 Sodium 141 141 Potassium 4.3 3.9 Chloride 102 108 H Carbon Dioxide 29 29 BUN 16 13 Creatinine 0.94 0.78 Glucose 150 H 92 Calcium 10.3 8.5 L Liver Function 07/03/23 Range/Units 16:32 Total Bilirubin 0.5 (0.2-1.0) mg/dl AST 24 (13-39) U/L ALT 16 (7-52) U/L Alkaline Phosphatase 65 (34-104) U/L Albumin 4.6 (3.4-5.0) gm/dl Urine 07/03/23 Range/Units 22:02 Urine Color Yellow Urine Appearance Clear (Clear) Urine pH 7.0 (4.5-7.5) Ur Specific [place] > 1.045 H (1.000-1.030) Urine Protein Negative (Negative) Urine Glucose (UA) Negative (Negative) Medications Administered Current Inpatient Medications Acetaminophen (Acetaminophen 325 Mg Tab) 650 mg PO Q4H PRN PRN Reason: Pain or Fever Stop: 08/02/23 22:25 Aspirin (Aspirin 81 Mg Ectab) 81 mg PO DAILY [facility] Stop: 08/03/23 08:59 Last Admin: 07/04/23 08:05 Dose: 81 mg Dicyclomine HCl (Dicyclomine Hcl 10 Mg Cap) 10 mg PO AMHS PRN PRN Reason: Abdominal Discomfort Stop: 08/02/23 22:25 Fluticasone Propionate (Fluticasone Propionate Na Spr 16 Gm Btl) 2 sprays NA DAILY [facility] Stop: 08/03/23 08:59 Last Admin: 07/04/23 08:06 Dose: 2 sprays Hydroxyurea (Hydroxyurea 500 Mg Cap) 1,000 mg PO MoWeFr@2100 [facility] Stop: 08/02/23 22:59 Last Admin: 07/03/23 23:17 Dose: 1,000 mg Hydroxyurea (Hydroxyurea 500 Mg Cap) 1,000 mg PO TuThSa@2100 [facility] Stop: 08/03/23 20:59 Sodium Chloride (Nss) 1,000 mls @ 80 mls/hr IV .[id number] [facility] Stop: 08/02/23 22:25 Last Admin: 07/04/23 12:29 Dose: 80 mls/hr Heparin Sodium/Dextrose (Heparin Sodium/Dextrose) 25,000 units in 500 mls @ 13 mls/hr IV .Q24H [facility]; Protocol Stop: 08/03/23 19:59 Ipratropium [place] (Ipratropium [place] Nasal [place] 0.06% 15ml) 1 sprays VANESSA [facility]HS PRN PRN Reason: rhinitis Stop: 08/02/23 22:44 Morphine Sulfate (Morphine Sulfate 4 Mg/Ml 1 Ml Carp\Vial) 3 mg IV Q4H PRN PRN Reason: Pain Stop: 07/17/23 22:25 Multivitamins (Multivitamin Tab) 1 tab PO DAILY [facility] Stop: 08/03/23 08:59 Last Admin: 07/04/23 08:06 Dose: 1 tab Nitroglycerin (Nitroglycerin Sl 0.4 Mg/Tab Tab) 0.4 mg SL Q5M PRN PRN Reason: Chest Pain Stop: 08/02/23 22:25 Ondansetron HCl (Ondansetron Inj 2 Mg/Ml 2 Ml Vial) 4 mg IV Q6H PRN PRN Reason: Nausea Stop: 08/02/23 22:25 Pantoprazole Sodium (Pantoprazole 40 Mg Tab) 40 mg PO BID [facility] Stop: 08/03/23 10:59 Last Admin: 07/04/23 14:11 Dose: 40 mg
[2023-07-04] MEDS ORDERED: HEPARIN SODIUM/DEXTROSE 25,000 UNITS/500 ML BAG IV SCH (20:00)
[2023-07-04 20:53] LABS: Basophils # (auto) 0.03 K/uL (0.00-0.20); Basophils % (auto) 0.5 %; Eosinophils # (auto) 0.02 K/uL (0.00-0.50); Eosinophils % (auto) 0.3 %; Hematocrit (blood only) 38.8 % (37.0-47.0); Hemoglobin 12.8 g/dl (12.0-16.0); Immature Granulocytes # (auto) 0.04 K/uL (0.01-0.20); Immature Granulocytes % (auto) 0.6 %; Lymphocytes # (auto) 1.03 K/uL (1.20-3.40); Lymphocytes % (auto) 16.6 %; Mean Corpuscular Hemoglobin 34.1 pg (25.0-34.0); Mean Corpuscular Volume 103.5 fL (80.0-100.0); Mean Platelet Volume 9.3 fL (9.4-12.4); Monocytes # (auto) 0.32 K/uL (0.11-0.59); Monocytes % (auto) 5.1 %; Neutrophils # (auto) 4.78 K/uL (1.40-6.50); Neutrophils % (auto) 76.9 %; Platelet Count 341 K/uL (130-400); RDW Standard Deviation 53.1 fL (36.4-46.3); Red Blood Count 3.75 M/uL (4.20-5.40); White Blood Count 6.22 K/ul (4.8-10.8)
[2023-07-04] MEDS ORDERED: HYDROXYUREA 500 MG CAP PO SCH ×3 (21:00→21:15)
[2023-07-04 21:23] LABS: INR 1.1 (0.9-1.1); Partial Thromboplastin Time 28.7 Seconds (21.0-31.0); Prothrombin Time 11.5 Seconds (9.0-12.0)
[2023-07-05] MEDS: SODIUM CHLORIDE 0.9% 1,000 ML IV SCH ×2 (01:09→12:57)
[2023-07-05 04:46] LABS: Partial Thromboplastin Ratio 1.2; Partial Thromboplastin Time 34.2 Seconds (21.0-31.0)
[2023-07-05] MEDS ORDERED: HEPARIN SOD (PORCINE) 1000 UNIT/ML IV ONE (05:15)
--- NOTE | 2023-07-05 08:14 | Electrocardiogram Report ---
Test Reason : Blood Pressure : / mmHG Vent. Rate : 076 BPM Atrial Rate : 076 BPM P-R Int : 154 ms QRS Dur : 080 ms QT Int : 398 ms P-R-T Axes : 072 -02 027 degrees QTc Int : 447 ms Normal sinus rhythm Left atrial enlargement Poor R wave progression, consider anterior PA vs. lead placement vs. LVH Abnormal ECG When compared with ECG of 04-JUL-2023 05:57, PRWP now present Confirmed by Darrell Munoz ([id number]) on 07/05/2023 8:13:57 AM Referred By: REFERRED SELF Confirmed By:Darrell Munoz
--- NOTE | 2023-07-05 09:25 | Pre Anesthesia Assessment ---
Date of Service July 05, 2023 Pre Sedation Assessment Vital Signs Temp Pulse Pulse Resp BP Pulse Ox O2 Del Method 07/05/23 02:55 36.6 C 71 14 130/60 94 Room Air 07/04/23 23:00 73 07/04/23 23:00 36.4 C L 68 14 129/74 95 Room Air 07/04/23 19:00 36.9 C 73 18 137/80 95 Room Air 07/04/23 16:39 75 07/04/23 16:06 36.7 C 77 18 119/72 95 Room Air 07/04/23 11:36 36.6 C 77 21 126/77 95 Room Air Cardiovascular RRR, no murmur, no edema Respiratory normal respiratory effort, lungs clear to auscultation Pre-Sedation Airway Assessment Smoking Status: Never smoker [id number] ASA-3 Notes The planned sedation has been discussed with the patient. Informed Consent was obtained. I have identified the patient, determined the appropriateness of sedation and have assessed the patient immediately prior to the procedure. All medicine(s) and interventions are by my order. [facility] [place] Procedure Codes (Charges) Indication for Procedure Indication for procedure: NSTEMI
[2023-07-05] MEDS ORDERED: MIDAZOLAM HCL 1 MG/ML 2ML VIAL ONE (09:44)
[2023-07-05] MEDS ORDERED: niCARdipine HCL INJ 2.5 MG/ML 10 ML AMP ONE (09:44)
[2023-07-05] MEDS ORDERED: HEPARIN (PORCINE) 1000 UNIT/ML 10 ML (CATH LAB USE ONLY) ONE (09:44)
[2023-07-05] MEDS ORDERED: fentaNYL citrate PF 100 MCG/2 ML VIAL ONE (09:44)
[2023-07-05] MEDS ORDERED: NITROGLYCERIN/D5W 100MCG/ML 20ML SYR ONE (09:45)
--- NOTE | 2023-07-05 10:43 | Post Anesthesia Assessment ---
Date of Service July 05, 2023 Post Sedation Assessment Vital Signs Temp Pulse Pulse Resp BP Pulse Ox O2 Del Method 07/05/23 10:27 74 19 133/62 94 Room Air 07/05/23 09:34 95 H 18 139/62 96 Room Air 07/05/23 02:55 36.6 C 71 14 130/60 94 Room Air 07/04/23 23:00 73 07/04/23 23:00 36.4 C L 68 14 129/74 95 Room Air 07/04/23 19:00 36.9 C 73 18 137/80 95 Room Air 07/04/23 16:39 75 07/04/23 16:06 36.7 C 77 18 119/72 95 Room Air 07/04/23 11:36 36.6 C 77 21 126/77 95 Room Air Recovery Score Activity: Moves 4 extremities Respiration: Deep Breath/Cough Circulation: +/-20% PreAnes Value Consciousness: Fully Awake Oxygen Saturation: > 92% On Room Air Post Anesthesia Score: 6 Discharge Sedation Level of Care: Fast Track Phase II Post Sedation Plan On clinical assessment, the patient appears to have tolerated the sedation without complications. Patient is recovering as anticipated. Patient will continue to be monitored by nursing and may be discharged when sedation discharge criteria are met per below protocol. Upon Completions of procedure up to 15 minutes continue every 5 minute vital signs and the P.A.R. score; then discharge to a Phase I or Fast Track to Phase II per the following guidelines: * Discharge Patient to appropriate Phase II area if PAR is 8 or greater or return to pre- procedure baseline. The post - procedure orders will be as directed. * If PAR score is less than 8 or not return to pre-procedure baseline then patient will follow Phase I monitoring till PAR is reached for Phase II. The Phase I may be done in procedure room or may call to secure a Phase I area. * If naloxone or flumazenil are used for reversal, hold in Phase I for continued monitoring from when last reversal dose was given for a minimum of 60 minutes or longer pending the nurse and/or physician discretion of patient condition before discharge to Phase II. Please call the Sedation Physician to re-evaluate and complete post-note for discharge to Phase II area. Do NOT discharge from procedure sedation or Phase 1 until post- sedation evaluation note is complete by procedure /sedation MD Sedation Discharge Instructions to be given to the patient at discharge to home. [facility] Procedure Codes (Charges) Indication for Procedure Indication for procedure: NSTEMI Sedation/Anesthesia Procedure 1: Sedation/Anesthesia: 01598 Mod Sedation by the same physician;Init15 Min Child Age 5 & Up (Start 1002, end 1011) Total Sedation Time (minutes): 9
--- NOTE | 2023-07-05 10:54 | Cardiac Catheterization ---
[facility] Data: Recruitment Specialist Cardiac Status Clinical evaluation leading to the procedure CAD Presenation: Non STEMI Anginal Classification: CCS IV Heart Failure: No Cardiogenic Shock within 24 Hours: No Cardiac Arrest within 24 Hours: No Imaging Studies Past 6 Months: Yes Stress Studies Past 6 Months: No Coronary Anatomy Dominant: Right Left Main (% Stenosis): Normal LAD (% Stenosis): Normal D1 (% Stenosis): Normal Circumflex (% Stenosis): Normal L PL1 (% Stenosis): Normal RCA (% Stenosis): Normal R PDA (% Stenosis): Normal R PL1 (% Stenosis): Normal Ramus (% Stenosis): Normal Diagnostic Physicians Name: Clarence Chappell MD, PhD Closure Device Percutaneous Entry Location: Radial Closure Device: Radial Band Recommendations: Medical Therapy and/or Counseling Cardiac Cath Procedure Full Procedure Date July 05, 2023 Pre-Procedure Diagnosis Pre-Procedure Diagnosis: Non STEMI AUC Score AUC Score: 07 Post-Procedure Diagnosis Post-Procedure Diagnosis: Normal Coronary Arteries Procedure(s) Performed Procedure(s) Performed: Coronary Angiography [employer] S[employer] Clarence Chappell MD, PhD Estimated Blood Loss Estimated Blood Loss: Less than 5 cc Medication(s) Medication(s): Fentanyl, Heparin, Lidocaine 1%, Nicardipine, Nitroglycerin and Versed Summary of Findings Brief description: Patient was brought to the cardiac catheterization suite where she was shaved and prepped in a sterile fashion. Sedated using IV Versed and fentanyl. Soft tissues of the right wrist were anesthetized using 2 mL of 1% Xylocaine. The right radial artery was accessed with a modified Seldinger technique and a 6 [place] radial artery glide sheath was placed. Patient was provided anticoagulation with IV heparin and antispasmodics including nicardipine and nitroglycerin. All catheters were advanced and exchanged over a 0.035 J-tip wire. Left coronary angiography in orthogonal views with a 5 [place] 4 diagnostic catheter. Right coronary angiography with a 5 [place] 4 diagnostic catheter. Diagnostic catheters were removed. Radial artery sheath was removed. Hemostasis was obtained using the TR band. Patient was hemodynamically stable and asymptomatic. She was returned to the recovery area. This ended the case. Coronary angiography findings: [id number] vessel trifurcating into LAD, circumflex, and ramus. No angiographically evident disease. LAD-this is large caliber and essentially bifid. It first provides a large septal trunk which courses down the septum. Then it bifurcates into the main LAD branch and a large multi branching diagonal. These vessels reach to the apex. There is no angiographically evident disease in the LAD or its branches. Ramus-medium to large in caliber branching vessel. There is tortuosity in the branches. There is no angiographically evident disease. [id number] and nondominant. Travels in the AV groove where it tapers and terminates in a posterolateral branch. Posterolateral is tortuous. There is no angiographically evident disease in the circumflex or its branches. RCA-this is a very large and dominant vessel. It bifurcates distally into a large branching PDA and a large branching posterolateral. The PDA extends to and provides the apical myocardium. There is no angiographically evident disease in the RCA or its branches. Summary: 1. Normal epicardial coronary arteries Hemodynamics Rest Ao:: 121/57 mmHg Final Ao: 115/59 mmHg LV: Not performed Recommendations Recommendations: Medical Therapy and/or Counseling Radiation Exposure (mGy) 297 mGy, fluoroscopy time 1.2 minutes Contrast (mls) 55 mL Anesthesia 1 mg IV Versed, 25 mcg IV fentanyl. Start time 1002, end time 1011 Procedural Complication(s) None Disposition Recovery Room\PACU I attest to the content of the Intraoperative Record and any orders documented therein. Any exceptions are noted below. [facility] Card Cath Procedure Codes Cardiac Catheterization Procedure 1: Cardiovascular Cath Procedures: 96231 Coronaries Moderate Sedation Procedure 1: Sedation/Anesthesia: 27000 Mod Sedation by the same physician;Init15 Min Child Age 5 & Up (Start time 1002, end time 1011) PG Care Time/CCT Total # of Minutes Spent Total Time Spent with Patient: Total time spent is greater than 50% in coordination of care (as documented) at patient's floor/unit and/or counseling patient:
--- NOTE | 2023-07-05 11:43 | Cardiology Progress Note ---
Date of Service July 05, 2023 Assessment & Plan Admission and Anticipated Discharge Date Admission Date: July 03, 2023 Supervising Physician Co-Signing Physician Notes Attending Staff: Pt seen and evaluated with AP Staff Concur with any observations and plans 77 yo woman presenting with epigastric discomfort * bubble/pressure in epigastric region * duration - hours * discomfort returned in AM on 07/04/2023 * Troponin elevated * Repeat Troponin pending * ECHO - normal LVEF - no WMA * EKG - WNL Med HX: * Paraesophageal hernia s/p surgical repair * R breast CA * Thrombocytosis Plans: * Elevation in Troponin consistent with NSTEMI * No significant Epicardial CAD * STOP Heparin * ReStart DOAC (no major bleeding) * Continue ASA 81 mg po per day * SBP at goal * Start Toprol XL 12.5 mg po per day * LDL 37 * Decrease Crestor to 5 mg po per day * I explained to patient that i was treating her as if she had an ACS in the absence of an alternative diagnosis. * I explained that it could be secondary to myocarditis (had a COVID booster 3 weeks previous). * Pt cannot have an MRI because of an implant in her neck. * I also explained that both the statin and beta israel could be discontinued if side effects were challenging. * I explained that she could consider stopping statin and/or beta blockers in 6- 12 weeks ("hedging our bet") * Follow up with [facility] * Please call back with any additional questions Mitesh Riley Subjective Events overnight: * Patient went for coronary angiography - no major epicardial stenosis * No telemetry events Subjective: * No complaints Review of Systems Review of Systems: All systems reviewed & are unremarkable except as noted in HPI & below Physical Exam Physical Exam: Thin woman in NAD No elevation in JVP S1S2 CTA B No C/C/E Right wrist - T band in place Results & Data Vital Signs (Past 12 Hours) Vital Signs Temp Pulse Resp BP Pulse Ox O2 Del Method 07/05/23 10:48 36.8 C 74 18 119/67 95 Room Air 07/05/23 10:41 68 20 136/82 96 Room Air 07/05/23 10:27 74 19 133/62 94 Room Air 07/05/23 09:34 95 H 18 139/62 96 Room Air 07/05/23 02:55 36.6 C 71 14 130/60 94 Room Air Laboratory Results Cardiac Enzymes 07/04/23 07/04/23 07/04/23 Range/Units 08:17 15:27 20:21 Troponin I High Sens 273.3 H* D 398.3 H* D 400.5 H* (0-14) pg/ml Coagulation 07/04/23 07/05/23 Range/Units 20:21 03:29 PT 11.5 (9.0-12.0) Seconds APTT 28.7 34.2 H (21.0-31.0) Seconds CBC 07/04/23 Range/Units 20:21 WBC 6.22 (4.8-10.8) K/ul RBC 3.75 L (4.20-5.40) M/uL Hgb 12.8 (12.0-16.0) g/dl Hct 38.8 (37.0-47.0) % Plt Count 341 (130-400) K/uL Neut # (Auto) 4.78 (1.40-6.50) K/uL Lymph # (Auto) 1.03 L (1.20-3.40) K/uL [place] # (Auto) 0.32 (0.11-0.59) K/uL Eos # (Auto) 0.02 (0.00-0.50) K/uL Baso # (Auto) 0.03 (0.00-0.20) K/uL Intake and Output 07/04/23 07/05/23 07/05/23 22:59 06:59 14:59 Intake Total 720 / 2915.117 1095.117 / 2915.117 Output Total 400 / 1600 700 / 1600 Balance 320 / 1315.117 395.117 / 1315.117 Intake: IV 1095.117 / 2095.117 Heparin Sodium/Dextrose 25,000 95.117 / 95.117 units In 500 ml @ 750 UNITS/HR 15 mls/hr IV .Q24H [facility] Rx#: [id number] Sodium Chloride 0.9% 1,000 ml @ 1000 / 2000 80 mls/hr IV .[id number] [facility] Rx#: [id number] Oral 720 / 820 Output: Urine 400 / 1600 700 / 1600 Other: Weight 57.4 kg Medications Administered Current Inpatient Medications Acetaminophen (Acetaminophen 325 Mg Tab) 650 mg PO Q4H PRN PRN Reason: Pain or Fever Stop: 08/02/23 22:25 Aspirin (Aspirin 81 Mg Ectab) 81 mg PO DAILY [facility] Stop: 08/03/23 08:59 Last Admin: 07/04/23 08:05 Dose: 81 mg Dicyclomine HCl (Dicyclomine Hcl 10 Mg Cap) 10 mg PO AMHS PRN PRN Reason: Abdominal Discomfort Stop: 08/02/23 22:25 Fluticasone Propionate (Fluticasone Propionate Na Spr 16 Gm Btl) 2 sprays NA DAILY [facility] Stop: 08/03/23 08:59 Last Admin: 07/04/23 08:06 Dose: 2 sprays Hydroxyurea (Hydroxyurea 500 Mg Cap) 1,000 mg PO MoWeFr@2100 [facility] Stop: 08/02/23 22:59 Last Admin: 07/03/23 23:17 Dose: 1,000 mg Hydroxyurea (Hydroxyurea 500 Mg Cap) 500 mg PO TuThSa@2100 [facility] Stop: 08/03/23 20:59 Last Admin: 07/04/23 21:07 Dose: 500 mg Sodium Chloride (Nss) 1,000 mls @ 80 mls/hr IV .[id number] [facility] Stop: 08/02/23 22:25 Last Admin: 07/05/23 01:09 Dose: 80 mls/hr Heparin Sodium/Dextrose (Heparin Sodium/Dextrose) 25,000 units in 500 mls @ 15 mls/hr IV .Q24H PEDRO; Protocol Stop: 08/03/23 19:59 Last Titration: 07/05/23 04:52 Dose: 750 units/hr, 15 mls/hr Ipratropium [place] (Ipratropium [place] Nasal [place] 0.06% 15ml) 1 sprays VANESSA AMHS PRN PRN Reason: rhinitis Stop: 08/02/23 22:44 Morphine Sulfate (Morphine Sulfate 4 Mg/Ml 1 Ml Carp\\Vial) 3 mg IV Q4H PRN PRN Reason: Pain Stop: 07/17/23 22:25 Multivitamins (Multivitamin Tab) 1 tab PO DAILY [facility] Stop: 08/03/23 08:59 Last Admin: 07/04/23 08:06 Dose: 1 tab Nitroglycerin (Nitroglycerin Sl 0.4 Mg/Tab Tab) 0.4 mg SL Q5M PRN PRN Reason: Chest Pain Stop: 08/02/23 22:25 Ondansetron HCl (Ondansetron Inj 2 Mg/Ml 2 Ml Vial) 4 mg IV Q6H PRN PRN Reason: Nausea Stop: 08/02/23 22:25 Pantoprazole Sodium (Pantoprazole 40 Mg Tab) 40 mg PO BID [facility] Stop: 08/03/23 10:59 Last Admin: 07/04/23 20:55 Dose: 40 mg
--- NOTE | 2023-07-05 12:01 | Gastrointestinal Consultation ---
Date of Consultation July 05, 2023 Assessment & Plan (1) Epigastric pain: 77 year old female with history of paraesophageal hernia s/p repair, BAYLEE, GERD, mixed stress and urge incontinence, essential thrombocytosis, breast CA, BCC and others admitted through the ED w/ chest pain. Seen by cardiology as presentation was concerning for an NSTEMI with trending troponin s/p cardiac catheterization today - GI asked to evaluate for epigastric pain. She may have symptoms of constipation, GERD and air swallowing which can contribute to her symptoms. Recommend to increase PPI, 40 mg once daily. Continue Gas-Ex as doing. She should also start a bowel regimen. Consider Linzess 145 mcg daily. If not on hospital formulary, consider Miralax 1 capful twice daily. May use Bentyl PRN cramping. No urgent indication for EGD/Colonoscopy. She can arrange hospital follow up with GI in 1-2 months and at that time we can plan for EGD/Colonoscopy pending cardiology clearance. Thank you for allowing us to participate in the care of this patient. Please call with any acute changes, questions or concerns. Please see addendum below with additional recommendation from my supervising physician. Supervising Physician Co-Signing Physician Notes I saw and evaluated the patient. We were consulted for evaluation of reflux and abdominal discomfort. Of note the patient has a fairly complicated history and underwent a paraesophageal hernia repair several years ago. She did have a recent upper endoscopy with one of my partners in November notable for mild esophagitis. Her bowel habits are described as irregular, she admits to having frequent problems with constipation. The patient is also on CPAP for history of obstructive sleep apnea. Impression: Patient heartburn symptoms constipation symptoms of bloating, this is likely multifactorial in nature given her surgical history and ongoing use of CPAP. I suspect the bloating is related to CPAP use at night, perhaps the patient would benefit from adjustment of her settings. With regard to her heartburn would suggest increase her resolved to 40 mg/day and trial of a bowel regimen such as Linzess 145 mcg/day. Patient will follow up with my partner Dr. Palacio as previously scheduled. History of Present Illness Reason for Consultation: epigastric pain Requesting Physician: Teena Attending Physician: Gil Dickinson MD History of Present Illness 77 year old female with history of paraesophageal hernia s/p repair, BAYLEE, GERD, mixed stress and urge incontinence, essential thrombocytosis, breast CA, BCC and others admitted through the ED w/ chest pain. Seen by cardiology as presentation was concerning for an NSTEMI with trending troponin s/p cardiac catheterization today - GI asked to evaluate for epigastric pain. Pt was seen and evaluated, chart reviewed. Notes she has had chronic GI symptoms from quite some time. AM cramping, alternating bowel habits, diarrhea/constipation, GERD, burping/belching and some nausea. Notes since hernia repair she decreased her PPI but has continued use of Gas-Ex at meal time. Denies black or bloody stools. Notes she is due for a colonoscopy in 2023 EGD 2022: esophagitis CTAP 2022: No bowel obstruction or pneumoperitoneum. Scattered small and large bowel air-fluid levels may be physiologic or represent an ileus/enteritis.Small volume of abdominopelvic ascites.Limited exam without use of enteric contrast. No CT evidence of acute appendicitis. Mild Hepatosplenomegaly. UGI series 2021: Postoperative changes of the gastroesophageal junction are redemonstrated. There is decreased esophageal emptying with mild esophageal dysmotility which is new from prior. Mild gastroesophageal reflux. Allergies Allergy/AdvReac Type Severity Reaction Status Date / Time adhesive tape Allergy Unknown Verified 07/03/23 19:32 mold Allergy Unknown Verified 07/03/23 19:32 Home Medications Medication Instructions Recorded Confirmed Type apixaban 5 mg tablet (Eliquis) 5 mg PO AMHS 07/03/23 07/03/23 History dicyclomine 10 mg capsule 10 mg PO AMHS PRN Abdominal 07/03/23 07/03/23 History Discomfort fluticasone propionate 50 2 spray intranasal DAILY 07/03/23 07/03/23 History mcg/actuation nasal spray,suspension hydroxyurea 500 mg capsule See Rx Instructions .Route .COMPLEX 07/03/23 07/03/23 History ipratropium bromide 21 mcg (0.03 2 spray intranasal AMHS PRN 07/03/23 07/03/23 History %) nasal spray rhinitis multivitamin (Multiple Vitamins 1 tab PO DAILY 07/03/23 07/03/23 History tablet) omeprazole 20 mg capsule,delayed 20 mg PO HS 07/03/23 07/03/23 History release Patient History Social History Smoking Status: Never smoker Hx Alcohol Use: Yes Alcohol type: wine Hx Substance Use: No Preferred Language: Finnish Communication Ability: Effective [employer] Required: No Beliefs That Will Affect Care: None Current Living Situation: Alone Other Information That Helps Us Care for You: No Feels Safe at Home: Yes Safety Concerns: Feels Safe At This Time Assistive Devices: CPAP Review of Systems Review of Systems: All systems reviewed & are unremarkable except as noted in HPI & below Physical Exam Constitutional: WD/WN, vitals as above Respiratory: normal respiratory effort; no respiratory distress Cardiovascular: Rate/Rhythm: regular rate Gastrointestinal (Abdomen): Percussion/Palpation: abdomen soft; abdomen nontender, no guarding and abdomen not rigid Skin: no rashes, warm and dry Results & Data Vital Signs (Past 12 Hours) Vital Signs Temp Pulse Resp BP Pulse Ox O2 Del Method 07/05/23 10:48 36.8 C 74 18 119/67 95 Room Air 07/05/23 10:41 68 20 136/82 96 Room Air 07/05/23 10:27 74 19 133/62 94 Room Air 07/05/23 09:34 95 H 18 139/62 96 Room Air 07/05/23 02:55 36.6 C 71 14 130/60 94 Room Air Laboratory Results 07/05/23 07/04/23 07/04/23 Range/Units 03:29 20:21 15:27 WBC 6.22 (4.8-10.8) K/ul RBC 3.75 L (4.20-5.40) M/uL Hgb 12.8 (12.0-16.0) g/dl Hct 38.8 (37.0-47.0) % MCV 103.5 H (80.0-100.0) fL MCH 34.1 H (25.0-34.0) pg MCHC 33.0 (32.0-36.0) g/dL RDW Std Deviation 53.1 H (36.4-46.3) fL RDW Coeff of Melissa 14.0 (11.5-14.5) % Plt Count 341 (130-400) K/uL MPV 9.3 L (9.4-12.4) fL Immature Gran % (Auto) 0.6 % Neut % (Auto) 76.9 % Lymph % (Auto) 16.6 % [place] % (Auto) 5.1 % Eos % (Auto) 0.3 % Baso % (Auto) 0.5 % Neut # (Auto) 4.78 (1.40-6.50) K/uL Lymph # (Auto) 1.03 L (1.20-3.40) K/uL [place] # (Auto) 0.32 (0.11-0.59) K/uL Eos # (Auto) 0.02 (0.00-0.50) K/uL Baso # (Auto) 0.03 (0.00-0.20) K/uL Immature Gran # (Auto) 0.04 (0.01-0.20) K/uL PT 11.5 (9.0-12.0) Seconds INR 1.1 (0.9-1.1) APTT 34.2 H 28.7 (21.0-31.0) Seconds PTT Ratio 1.2 1.0 Troponin I High Sens 400.5 H* 398.3 H* D (0-14) pg/ml 07/04/23 Range/Units 08:17 WBC (4.8-10.8) K/ul RBC (4.20-5.40) M/uL Hgb (12.0-16.0) g/dl Hct (37.0-47.0) % MCV (80.0-100.0) fL MCH (25.0-34.0) pg MCHC (32.0-36.0) g/dL RDW Std Deviation (36.4-46.3) fL RDW Coeff of Melissa (11.5-14.5) % Plt Count (130-400) K/uL MPV (9.4-12.4) fL Immature Gran % (Auto) % Neut % (Auto) % Lymph % (Auto) % [place] % (Auto) % Eos % (Auto) % Baso % (Auto) % Neut # (Auto) (1.40-6.50) K/uL Lymph # (Auto) (1.20-3.40) K/uL [place] # (Auto) (0.11-0.59) K/uL Eos # (Auto) (0.00-0.50) K/uL Baso # (Auto) (0.00-0.20) K/uL Immature Gran # (Auto) (0.01-0.20) K/uL PT (9.0-12.0) Seconds INR (0.9-1.1) APTT (21.0-31.0) Seconds PTT Ratio Troponin I High Sens 273.3 H* D (0-14) pg/ml
[2023-07-05] MEDS: MULTIVITAMIN TAB PO SCH (12:55)
[2023-07-05] MEDS: ASPIRIN 81 MG ECTAB PO SCH (12:56)
[2023-07-05] MEDS: FLUTICASONE PROPIONATE NA SPR 16 GM BTL SCH (12:58)
[2023-07-05] MEDS: PANTOprazole 40 MG TAB PO SCH ×2 (13:00→20:44)
--- NOTE | 2023-07-05 13:15 | Ultrasound Report ---
US liver CLINICAL HISTORY: Epigastric pain. Evaluate for gallstones. COMPARISON STUDY: CT of the abdomen and pelvis July 03, 2023. FINDINGS: No hepatic lesions are identified. Liver is sonographically normal. There is no biliary elias jacinta dilatation. The common bile duct measures 4 mm in caliber. The gallbladder is normal. There are n o gallstones. Pancreas is obscured by overlying bowel gas. There is no right hydronephrosis. IMPRESSION: No significant abnormality within the right upper quadrant by sonography. ACT 112: Negative or not required by law. Electronically signed by: Jesu Rizo M.D. 07/05/2023 1:13 PM
--- NOTE | 2023-07-05 18:01 | Hospitalist Progress Note ---
Date of Service July 05, 2023 Assessment & Plan (1) Non-ST elevation DC (NSTEMI): Plan: 77-year-old female with past med significant for paraesophageal hernia s/p repair, obstructive sleep apnea, GERD, mixed stress and urge incontinence, essential thrombocytosis, history of right breast cancer, history of basal cell carcinoma s/p excision presents with abdominal pain and found to have elevated troponin. Non-ST elevated DC Initial troponin 109.Troponin trending up to 299 and 470 Troponins pending those are taken at 8:17 AM and 3:27 PM EKG sinus bradycardia but no other acute findings Repeat EKG did not show any change Patient is already on Eliquis who is has been on hold and the patient is started with intravenous heparin Close monitoring telemetry Echo of the heart showed-LV is normal in size the LV all motion is normal EF 60 to 65%, right ventricular systolic function normal, left atrial size is normal and right atrial size is normal. Appreciate cardiology input and recommendation Has been on intravenous heparin and oral aspirin Going to have cardiac cath tomorrow 07/05 s/p Cardiac Cath: No coronary artery disease continue Aspirin, Toprol XL, decrease Crestor resume Eliquis Epigastric pain CT scan showing possible ileus versus enteritis Currently pain improved We will keep her n.p.o. IV fluids IV morphine as needed Could be atypical presentation of angina with elevation of the troponin and in female We will get ultrasound of the liver to rule out any gallstones 07/05 Liver US: unremarkable GI consulted: possible GERD, constipation increase Protonix to BID start Miralax daily Obstructive sleep apnea CPAP nightly History of thrombocytosis On hydroxyurea History of right breast cancer S/p right partial mastectomy and chemo radiation 1993 History of DVT On Eliquis DVT prophylaxis On Eliquis Disposition telemetry floor Full code Admission and Anticipated Discharge Date Admission Date: July 03, 2023 Subjective ff up for epigastric pain, etc seen resting in bed, sitting up Ekta at bedside visiting s/p Cardiac Cath- unrevealing states she still has epigastric discomfort- "gas" no nausea/vomiting, (+) flatus, last BM Monday no other new symptoms Review of Systems Review of Systems: all noted and negative except for above Physical Exam Physical Exam: General- oriented x 3, not in distress, speaks in sentences with no effort or accessory muscle use Eyes- anicteric Neck- no JVD Lungs- clear breath sounds bilaterally, no rales/wheezes Heart- normal rate, regular rhythm; no murmurs Abdomen- normal bowel sounds, nondistended, soft, mild epigastric tenderness Extremities- no pretibial edema, no calf tenderness Neuro- alert, oriented x 3; no gross focal neurologic deficits Skin- warm & dry Results & Data Results & Data Vital Signs (Past 12 Hours) Vital Signs Temp Pulse Resp BP Pulse Ox O2 Del Method 07/05/23 15:56 36.8 C 74 18 130/75 97 Room Air 07/05/23 15:54 79 18 134/76 94 Room Air 07/05/23 14:54 85 16 132/78 93 Room Air 07/05/23 13:54 92 H 18 134/65 97 Room Air 07/05/23 12:54 87 18 138/67 97 Room Air 07/05/23 11:54 76 18 116/68 97 Room Air 07/05/23 11:24 70 18 117/72 95 Room Air 07/05/23 10:54 36.8 C 70 18 116/67 95 Room Air 07/05/23 10:48 36.8 C 74 18 119/67 95 Room Air 07/05/23 10:41 68 20 136/82 96 Room Air 07/05/23 10:27 74 19 133/62 94 Room Air 07/05/23 09:34 95 H 18 139/62 96 Room Air 07/05/23 07:30 Room Air all noted and reviewed including below
[2023-07-05] MEDS: POLYETHYLENE (MIRALAX) 17 GM PACK PO SCH (19:22)
[2023-07-05] MEDS: APIXABAN 5 MG TABLET PO SCH (20:44)
[2023-07-05] MEDS: HYDROXYUREA 500 MG CAP PO SCH (20:45)
--- OUTSIDE RECORDS SUMMARY | 2023-07-05 23:13 | External Medical Summary | Summary of Care ---
Author Name Unknown Organization [facility] Address [address] [place] [place] [place] [address] Phone [phone] Care Team Providers Care Business Planner Name Role Phone Andressa Bernal MD Primary Care Provider [phone] Encounter Details Date Type Department Care Team Description 05/22/2023 Orders Only Hematology/Oncology [facility] [place] [address] [facility] [place] [address] [place] [facility] [address] [facility] [address] Essential thrombocytosis (HCC)* Allergies Active Allergy Reactions Severity Noted Date Comments Adhesive Tape Rash 04/03/2019 Molds & Smuts Cough 07/30/2018 documented as of this encounter (statuses as of 05/22/2023) Medications Medication Sig Dispensed Refills Start Date End Date Status Multiple Vitamin (MULTI-DAY) TabletIndications:Men opause Take 1 Tab by mouth daily. 0 Active Tums 500 MG Oral Tablet Chewable Take 2 Tablets by mouth every 4 hours as needed for Heartburn. Taking 6-10. 0 Active Rxzkkqm-Bwrzneygkg-Ii tamin D 250-107-500 MG-MG-UNIT Oral Tablet Chewable - 1000 mg ca/d 1 Tab 0 04/06/2020 Active guaiFENesin ER 600 MG Oral Tablet Extended Release 12 Hour Take 1 Tablet by mouth in the morning and 1 Tablet before bedtime. 0 Active Simethicone 180 MG Oral Capsule Take by mouth as needed for Gas. 0 Active CPAP every night at bedtime. 0 Active Fexofenadine HCl 180 MG Oral Tablet Take 1 Tablet by mouth daily as needed for Allergies. 0 04/26/2022 Active Dicyclomine HCl 10 MG Oral Capsule (Bentyl)Indications:S /P repair of paraesophageal hernia,Abdominal cramping Take by mouth 1 Capsule in the morning AND 1 Capsule before bedtime. 180 Capsule 3 04/26/2022 Active Additional Information Patient taking differently:10 mg OralPRN, Reported on 05/15/2023 Eliquis 5 MG Oral Tablet (Apixaban)Indications :Acute deep vein thrombosis (DVT) of left lower extremity, unspecified vein (HCC),Essential (hemorrhagic) thrombocythemia (HCC) TAKE 1 TABLET BY MOUTH EVERY DAY IN THE MORNING AND BEFORE BEDTIME 180 Tablet 2 11/17/2022 Active metroNIDAZOLE 0.75 % External Cream (MetroCream)Indicatio ns:Rosacea Apply topically to affected area 2 times a day. apply to affected area. 45 g 5 11/22/2022 Active Omeprazole 20 MG Oral Capsule Delayed Release (PriLOSEC) Take 1 Capsule by mouth in the morning. 90 Capsule 3 12/19/2022 Active Hydroxyurea 500 MG Oral Capsule (Hydrea)Indications:E ssential (hemorrhagic) thrombocythemia (HCC) TAKE 1 CAPSULE BY MOUTH ALTERNATING WITH 2 CAPSULES BY MOUTH EVERY OTHER DAY TAKING 6 DAYS A WEEK 135 Capsule 3 01/23/2023 Active Ipratropium [place] 0.03 % Nasal Solution (Atrovent) Administer 2 Sprays into nostril in the morning and 2 Sprays before bedtime. 90 mL 3 01/24/2023 Active Additional Information Patient taking differently:2 [place] NasalPRN, Rhinitis, Reported on 05/15/2023 Fluticasone Propionate 50 MCG/ACT Nasal Suspension (Flonase) ADMINISTER 2 SPRAYS INTO EACH NOSTRIL EVERY DAY 48 mL 3 01/24/2023 Active documented as of this encounter (statuses as of 05/22/2023) Active Problems Problem Noted Date Senile osteoporosis 03/27/2022 Overview: 04/11--T-score invalid at Lumbar spine: -2.3 left hip,dec 4% from prior--HR--refer to [facility] Paraesophageal hernia 11/16/2020 Cervicalgia 04/22/2020 History of radiation therapy 09/19/2019 Apical lung scarring 09/19/2019 BAYLEE (obstructive sleep apnea) 09/19/2019 Aerophagia 09/19/2019 Renal cyst, left 07/12/2019 Overview: 03/09-renal US--cysts-3 x 1cm on right, 1 x 5 cm on left ,no stones._(had seen urology in past)-ch UA 07/09-CT chest-A 5.1 cm left renal upper pole cyst. Nonobstructive left renal stones. Punctate parenchymal calcification in the left renal upper pole. Tiny right renal upper pole cyst Osteopenia of neck of left femur 019 Overview: 03/07--dexa _0.1/- 1.4 --rpt 2 yrs>>03/09-0.6/-2.0--rpt 2 yrs History of skin cancer 10/01/2018 Chronic cough 09/06/2018 History of right breast cancer 8 Overview: 1994[place] 03/14/19>03/09 Gastroesophageal reflux disease without esophagitis 07/30/2018 Essential thrombocytosis 07/30/2018 Mixed stress and urge urinary incontinen ce 07/30/2018 S/P repair of paraesophageal hernia 07/21 Overview: mod on CT 07/06/17>>12/28/18-EGD--mod HH, erosive gastropathy>>11/16/20- laparoscopic hiatal hernia repair with Magnetic Sphincter Augmentation. Advance directive in chart 07/30/2018 Overview: DNR if terminal, Dtr Valentina A Trever-POA History of basal cell carcinoma (BCC) ex cision 07/30/2018 History of colonoscopy 07/30/2018 Overview: 08/12/14--redundant colon, rpt 5 yrs for h/o polyps(priorGI) documented as of this encounter (statuses as of 05/22/2023) Resolved Problems Problem Noted Date Resolved Date Rhinitis, nonallergic 10/05/2018 07/02/2019 Overview: acute Hypersomnolence 09/19/2018 09/28/2020 Overview: 08/07-+snoring,fatigue-- nocturnal oximetry shows desaturation to 89 % with pattern of sleep disordered breathing.,Needs sleep clinic eval- pulmonary referral placed. Tinnitus, subjective, bilateral 08/02/2018 07/02/2019 Chronic rhinitis 07/30/2018 10/05/2018 documented as of this encounter (statuses as of 05/22/2023) Immunizations Name Administration Dates Next Due COVID-19 mRNA, LNP-s, No Pre serve, 2-Dose Series (Profound) 12/19/2022,12/06/2021,05/24/2021,10/14,09/23/2020 Pneumococcal Conjugate Vacc, 13 Valent (Prevnar) 05/21/2017,05/13/2016,05/11/2009 Pneumococcal Polysaccharide PPV23 (Pneumovax) 07/04/2019,05/13/2016,05/11/2009 Season Influenza, Quad, PF, Adjuvanted, 65+ Yrs, IM (FLUAD) 05/07/2020 Seasonal Influenza Virus Vac cine, Unspecified Formulation 06/10/2019,07/03/2018 Seasonal Influenza, QUAD, wi th Preserv, 6 mons & Above, 0.5 mL, IM 05/12/2017,05/13/2016,05/16/2014,06/10 Seasonal Influenza, Quadriva lent Hd (Fluzone Hd) 05/02/2023,06/08/2021 Seasonal Influenza, Trivalen t, High Dose, No Preserve, IM 06/10/2019,07/03/2018 TDAP (age 10 and older)(Boostrix) 08/25/2021,05/2012 Varicella Zoster Vaccine (Adult) 12/07/2010 Zoster Vaccine Recombinant (Shingrix) 11/19/2019 ,08/29/2019 documented as of this encounter Social History Tobacco Use Types Packs/Day Years Used Date Smoking Tobacco: Former Cigarettes 0.1 10 Q uit: 07/30/1974 Smokeless Tobacco: Never Comments:Pt was a social smo ker. Alcohol Use Standard Drinks/Week Comments Yes 0 (1 standard drink = 0.6 oz pur e alcohol) social Food Insecurity Answer Date Recorded Within the past 12 months, y ou worried that your food would run out before you got money to buy more. Never true 04/06/2020 Within the past 12 months, t he food you bought just didn't last and you didn't have money to get more. Never true 04/06/2020 Sex Assigned at Date Recorded Female 12/25/2018 4:06 PM E DT Job Start Date Occupation Industry Not on file Not on file Not on file documented as of this encounter Progress Notes * Mercedes Canada LPN - 05/22/2023 1:[address] Alexander on 05/02/23: "Continue current dose of hydroxyurea. I will also change her blood test to every other month. She will also continue Eliquis. " Entered cbcd for every 2 months documented in this encounter Plan of Treatment Upcoming Encounters Date Type Specialty Care Team Description 07/24/2023 Laboratory [facility] [place], Lab Scenery [address] [place] [address] 07/25/2023 Office Visit Sleep Disorders Mandy Kmi CRNP [address] [place] [address] 09/26/2023 Laboratory Laboratory [place], Lab Scenery [address] [place] [address] 11/21/2023 Laboratory [facility] [place], Lab Scenery [address] [place] [address] 11/21/2023 Office Visit Rheumatology Bia Chavez CRNP [address] [facility] [place] [address] 11/28/2023 Imaging Radiology 11/28/2023 Office Visit Hematology Oncology Real [place] MD [address] [place] [address] 01/16/2024 Office Visit Dermatology Charisma Hernandez MD 04/30/2024 Imaging Radiology 05/20/2024 Office Visit Internal Medicine Andressa Bernal MD [address] [place] [address] Scheduled Orders Name Type Priority Associated Diagnoses Orde r Schedule CBC WITH WBC DIFFERENTIAL Lab STAT Essential thrombocytosis (HCC) Every 2 Months for 6 Occurrences starting 05/22/2023 until 05/22/2024, 1 completed Scheduled Procedures Name Priority Associated Diagnoses Date/Ti me COLONOSCOPY FLEXIBLE PROXIMAL DIAGNOSTIC Recall History of colon polyps Health Maintenance Due Date Last Done Comments DXA Scan 03/21/2024 03/21/2022, 02/18, 02/28/2018, Additional history exists COLONOSCOPY-EVERY 5 YRS AGES 18-100 04/03/2024 04/03/2019, 04/03/2019, 08/12/2014, Additional history exists Depression Screening 05/15/2024 05/15/2023 DTaP,Tdap,and Td Vaccines (3 - Td or Tdap) 08/25/2031 08/25/2021, 08/30/2011 Pneumococcal Vaccine: 65+ Years Completed 07/04/2019, 05/21/2017, 05/13/2016, Additional history exists Zoster Vaccines Completed 11/19/2019, 04/2020, 12/07/2010 COVID-19 Vaccine Completed 12/19/2022, 06/2022, 12/06/2021, Additional history exists Influenza Vaccine (FLU shot) Completed 07/2023, 06/08/2021, 05/07/2020, Additional history exists VITAMIN D LEVEL ONCE IN A LIFETIME-USE SMARTSET# 51261 Completed 05/04/2023, 04/26/2022 GARDASIL-HPV IMMUNIZATION SERIES Aged Out No longer eligible based on patient's age to complete this topic Hepatitis B Aged Out No longer eligi ble based on patient's age to complete this topic MENINGOCOCCAL (MENACTRA/MENVEO) Aged Out No longer eligible based on patient's age to complete this topic documented as of this encounter Medical Devices Implanted Type Area Azure Developer Device Identifier Shelf Expiration Date Model / Serial / Lot Reflux Management System 15 - [id number] Implanted:Qty: 1 on 11/16/2020 by Jayro Olmos MD at OR [facility] [place] : [employer] [id number] 05/02/2023 LXM C15 / / [id number] documented as of this encounter Visit Diagnoses Diagnosis Essential thrombocytosis (HCC)- Primary Essential thrombocythemia documented in this encounter Advance Directives Documents on File Type Date Recorded Patient Inbound Sales Manager Expl anation Advance Directives and Livin g Will 12/13/2016 ADVANCE DIRECTIVE Power of Travelift Operator 12/13/2016 POWER OF A TTORNEY Latest Code Status on File Code Status Date Activated Date Inactivated Comments Full Code 11/16/2020 3:04 PM 11/17/2020 4:16 PM This order reflects the patients wishes and were consensually agreed upon. Care Teams Business Planner Relationship Specialty Start Date End Date Andressa Bernal MD [address] [place] [id number] PCP - General Internal Medicine 07/30/18 documented as of this encounter
--- OUTSIDE RECORDS SUMMARY | 2023-07-05 23:14 | External Medical Summary | Summary of Care ---
Author Name Unknown Organization [facility] Address [address] [place] [address] Phone [phone] Care Team Providers Care Paper Supervisor Name Role Phone Andressa Bernal MD Primary Care Provider [phone] Reason for Visit * Reason Onset Date Comments Order Request 05/01/2023 Encounter Details Date Type Department Care Team Description 05/01/2023 Telephone Rheumatology, [address] [id number] Moody Bush MD [address] [place] [address] [id number] Order Request Allergies Active Allergy Reactions Severity Noted Date Comments Adhesive Tape Rash 04/03/2019 Molds & Smuts Cough 07/30/2018 documented as of this encounter (statuses as of 05/01/2023) Medications Medication Sig Dispensed Refills Start Date End Date Status Multiple Vitamin (MULTI-DAY) TabletIndications:Men opause Take 1 Tab by mouth daily. 0 Active Tums 500 MG Oral Tablet Chewable Take 2 Tablets by mouth every 4 hours as needed for Heartburn. Taking 6-10. 0 Active Fbwsdln-Mavlxouumr-Ro tamin D 250-107-500 MG-MG-UNIT Oral Tablet Chewable - 1000 mg ca/d 1 Tab 0 04/06/2020 Active guaiFENesin ER 600 MG Oral Tablet Extended Release 12 Hour Take 1 Tablet by mouth in the morning and 1 Tablet before bedtime. 0 Active Simethicone 180 MG Oral Capsule Take by mouth 2 times a day. 0 Active CPAP every night at bedtime. 0 Active Fexofenadine HCl 180 MG Oral Tablet Take 1 Tablet by mouth daily as needed for Allergies. 0 04/26/2022 Active Dicyclomine HCl 10 MG Oral Capsule (Bentyl)Indications:S /P repair of paraesophageal hernia,Abdominal cramping Take by mouth 1 Capsule in the morning AND 1 Capsule before bedtime. 180 Capsule 3 04/26/2022 Active Eliquis 5 MG Oral Tablet (Apixaban)Indications :Acute [...] the morning. 90 Capsule 3 12/19/2022 Active Atropine Sulfate 1 % Ophthalmic Solution INSTILL 1 DROP INTO RIGHT EYE TWICE A DAY 0 01/02/2023 Active prednisoLONE Acetate 1 % Ophthalmic Suspension (Pred Forte) 1 Drop in the morning and 1 Drop at noon and 1 Drop in the evening and 1 Drop before bedtime. 0 01/02/2023 Active Hydroxyurea 500 MG Oral Capsule (Hydrea)Indications:E ssential (hemorrhagic) thrombocythemia (HCC) TAKE 1 CAPSULE BY MOUTH ALTERNATING WITH 2 CAPSULES BY MOUTH EVERY OTHER DAY TAKING 6 DAYS A WEEK 135 Capsule 3 01/23/2023 Active Ipratropium [place] 0.03 % Nasal Solution (Atrovent) Administer 2 Sprays into nostril in the morning and 2 Sprays before bedtime. 90 mL 3 01/24/2023 Active Fluticasone Propionate 50 MCG/ACT Nasal Suspension (Flonase) ADMINISTER 2 SPRAYS INTO EACH NOSTRIL EVERY DAY 48 mL 3 01/24/2023 Active documented as of this encounter (statuses as of 05/01/2023) Active Problems Problem Noted Date Senile osteoporosis [...] as of this encounter (statuses as of 05/01/2023) Resolved Problems Problem Noted Date Resolved Date Rhinitis, nonallergic 10/05/2018 07/02/2019 Overview: acute Hypersomnolence 09/19/2018 09/28/2020 Overview: 08/07-+snoring,fatigue-- nocturnal oximetry shows desaturation to 89 % with pattern of sleep disordered breathing.,Needs sleep clinic eval- pulmonary referral placed. Tinnitus, subjective, bilateral 08/02/2018 07/02/2019 Chronic rhinitis 07/30/2018 10/05/2018 documented as of this encounter (statuses as of 05/01/2023) Immunizations Name Administration Dates Next Due COVID-19 mRNA, LNP-s, No Pre serve, 2-Dose Series (KonnectAgain) 12/19/2022,12/06/2021,05/24/2021,10/14,09/23/2020 Pneumococcal Conjugate Vacc, 13 Valent (Prevnar) 05/21/2017,05/13/2016,05/11/2009 Pneumococcal Polysaccharide PPV23 (Pneumovax) 07/04/2019,05/13/2016,05/11/2009 Season Influenza, Quad, PF, Adjuvanted, 65+ Yrs, IM (FLUAD) 05/07/2020 Seasonal Influenza Virus Vac cine, Unspecified Formulation 06/10/2019,07/03/2018 Seasonal Influenza, QUAD, wi th Preserv, 6 mons & Above, 0.5 mL, IM 05/12/2017,05/13/2016,05/16/2014,06/10 Seasonal Influenza, Quadriva lent Hd (Fluzone Hd) 06/08/2021 Seasonal Influenza, Trivalen t, High Dose, No [...] on file documented as of this encounter Miscellaneous Notes * Telephone Encounter - Moody Bush MD - 05/01/2023 11:51 AM EDT Vit D ordered documented in this encounter Plan of Treatment Upcoming Encounters Date Type Specialty Care Team Description 05/02/2023 Office Visit Hematology Oncology Real [place] MD [address] [place] [address] 05/15/2023 Office Visit Internal Medicine Andressa Bernal MD [address] [place] [address] 07/25/2023 Office Visit Sleep Disorders Mandy Kim CRNP [address] [place] [address] 01/16/2024 Office Visit Dermatology Charisma Hernandez MD Scheduled Orders Name Type Priority Associated Diagnoses Orde r Schedule 25-HYDROXY VITAMIN D Lab Routine Senile osteoporosis Expected: 05/01/2023, Expires: 05/01/2024 Scheduled Procedures Name Priority Associated Diagnoses Date/Ti me COLONOSCOPY FLEXIBLE PROXIMAL DIAGNOSTIC Recall History of colon polyps Health Maintenance Due Date Last Done Comments Depression Screening 04/06/2021 04/06/2020 *BISPHONATE OR OTHER ACCEPTABLE MEDICATION NEEDED FOR OSTEOPOROSIS (REFER TO SMARTSET #1146) 11/03/2022 Influenza Vaccine (FLU shot) (#1) 2023 06/08/2021, 05/07/2020, 06/10/2019, Additional history exists DXA Scan 03/21/2024 03/21/2022, 02/18, 02/28/2018, Additional history exists COLONOSCOPY-EVERY 5 YRS AGES 18-100 04/03/2024 04/03/2019, 04/03/2019, 08/12/2014, Additional history exists DTaP,Tdap,and Td Vaccines (3 - Td or Tdap) 08/25/2031 08/25/2021, 08/30/2011 Pneumococcal Vaccine: 65+ Years Completed 07/04/2019, 05/21/2017, 05/13/2016, Additional history exists Zoster Vaccines Completed 11/19/2019, 04/2020, 12/07/2010 VITAMIN D LEVEL ONCE IN A LIFETIME-USE SMARTSET# 60512 Completed 04/26/2022 COVID-19 Vaccine Completed 12/19/2022, 06/2022, 12/06/2021, Additional history exists GARDASIL-HPV IMMUNIZATION SERIES Aged Out No longer eligible based on patient's age to complete this topic Hepatitis B Aged Out No longer eligi ble based on patient's age to complete this topic MENINGOCOCCAL (MENACTRA/MENVEO) Aged Out No longer eligible based on patient's age to complete this topic documented as of this encounter Medical Devices Implanted Type Area Kitchen Clerk Device Identifier Shelf Expiration Date Model / Serial / Lot Reflux Management System 15 - [id number] Implanted:Qty: 1 on 11/16/2020 by Jayro Olmos MD at [facility] [place] : [employer] [id number] 05/02/2023 [facility] C15 / / [id number] documented as of this encounter Visit Diagnoses Diagnosis Senile osteoporosis- Primary documented in this encounter Advance Directives Documents on File Type Date Recorded Patient Pattern Shop Supervisor Expl anation Advance Directives and Mireya Harvey 12/13/2016 ADVANCE DIRECTIVE Power of Auto Striper 12/13/2016 POWER OF A TTORNEY Latest Code Status on File Code Status Date Activated Date Inactivated Comments Full Code 11/16/2020 3:04 PM 11/17/2020 4:16 PM This order reflects the patients wishes and were consensually agreed upon. Care Teams Paper Supervisor Relationship Specialty Start Date End Date Andressa Bernal MD [address] [place] [address], [place] [address] PCP - General Internal Medicine 07/30/18 documented as of this encounter
--- OUTSIDE RECORDS SUMMARY | 2023-07-05 23:14 | External Medical Summary ---
Author Name Unknown Address Unknown Organization [id number]:[facility] [place] - [address] [place] [address] [place] [address] Laboratory Report Ordering Provider Test Date Status APARNA IBARRA 05/04/2023 12:03:36 Final Deficient: <20 ng/mL
Ins ufficient: 20-29 ng/mL
Recommended/Optimum:30-50 ng/mL

Vitamin D intoxication is rare. If suspicious of Vitamin D toxicity, evaluation of serum Calcium and PTH is recommended. Observation Date Value Abnormality Reference (Units ) Status 25-OH Vitamin D total 05/04/2023 12:03:36 58 >19 (ng/mL) Final Performing Location [facility] [place] - [address] [place] [address]
--- OUTSIDE RECORDS SUMMARY | 2023-07-05 23:14 | External Medical Summary | Summary of Care ---
Author Name Unknown Organization [facility] Address [address] [place] [address] Phone [phone] Care Team Providers Care Timber Cruiser Name Role Phone Andressa Bernal MD Primary Care Provider [phone] Reason for Referral * Evaluate & Treat - Unlimited Visits (Within 10 days (routine)) - Authorized Specialty Diagnoses / Procedures Referred By Cassandra payan Referred To Contact Rheumatology Diagnoses Gastroesophageal reflux disease with esophagitis without hemorrhage Senile osteoporosis Andressa Bernal MD [address] [place] [address] [place] [id number] Referral ID Status Reason Start Date Expiration Date Visits Requested Visits Authorized [id number] Authorized Specialty Services Required 05/15/2023 999 999 Question Answer Referral Priority Within 10 days (routine) Comments Prolia 2 due Reason for Visit * Reason Comments Follow Up The pt stated she is here for her annual follow up Encounter Details Date Type Department Care Team Description 05/15/2023 Office Visit General Internal Medicine [place] [address] [place] [address] Andressa Bernal MD [facility] [address] [place] [address] S/P repair of paraesophageal hernia*; Chronic cough; Gastroesophageal reflux disease with esophagitis without hemorrhage; Encounter for long-term (current) use of medications; History of right breast cancer; Dense breast tissue on mammogram; Essential thrombocytosis (HCC); BAYLEE (obstructive sleep apnea); History of colonoscopy; Lipid screening; Screening for diabetes mellitus; Senile osteoporosis; Other abnormal glucose; Electrolyte imbalance; Hyponatremia; History of radiation therapy; Apical lung scarring; Splenic artery aneurysm (HCC) Allergies Active Allergy Reactions Severity Noted Date Comments Adhesive Tape Rash 04/03/2019 Molds & Smuts Cough 07/30/2018 documented as of this encounter (statuses as of 05/15/2023) Medications Medication Sig Dispensed Refills Start Date End Date Status Multiple Vitamin (MULTI-DAY) TabletIndications:Men opause Take 1 Tab by mouth daily. 0 Active Tums 500 MG Oral Tablet Chewable Take 2 Tablets by mouth every 4 hours as needed for Heartburn. Taking 6-10. 0 Active Dajnvbd-Prsnhzitlb-Ej tamin D 250-107-500 MG-MG-UNIT Oral Tablet Chewable [...] WEEK 135 Capsule 3 01/23/2023 Active Ipratropium Maiden 0.03 % Nasal Solution (Atrovent) Administer 2 Sprays into nostril in the morning and 2 Sprays before bedtime. 90 mL 3 01/24/2023 Active Additional Information Patient taking differently:2 [place] NasalPRN, Rhinitis, Reported on 05/15/2023 Fluticasone Propionate 50 MCG/ACT Nasal Suspension (Flonase) ADMINISTER 2 SPRAYS INTO EACH NOSTRIL EVERY DAY 48 mL 3 01/24/2023 Active documented as of this encounter (statuses as of 05/15/2023) Active Problems Problem Noted Date Senile osteoporosis [...] as of this encounter (statuses as of 05/15/2023) Resolved Problems Problem Noted Date Resolved Date Rhinitis, nonallergic 10/05/2018 07/02/2019 Overview: acute Hypersomnolence 09/19/2018 09/28/2020 Overview: 08/07-+snoring,fatigue-- nocturnal oximetry shows desaturation to 89 % with pattern of sleep disordered breathing.,Needs sleep clinic eval- pulmonary referral placed. Tinnitus, subjective, bilateral 08/02/2018 07/02/2019 Chronic rhinitis 07/30/2018 10/05/2018 documented as of this encounter (statuses as of 05/15/2023) Immunizations Name Administration Dates Next Due COVID-19 mRNA, LNP-s, No Pre serve, 2-Dose Series (EverZero) 12/19/2022,12/06/2021,05/24/2021,10/14,09/23/2020 Pneumococcal Conjugate Vacc, 13 Valent (Prevnar) [...] on file documented as of this encounter Last Filed Vital Signs Vital Sign Reading Time Taken Comments Blood Pressure 134/70 05/15/2023 2:59 PM EDT Pulse 81 05/15/2023 2:59 PM EDT Temperature 36.5 C (97.7 F) 05/15/2023 2:59 PM ED T Respiratory Rate - - Oxygen Saturation 98% 05/15/2023 2:59 PM EDT Inhaled Oxygen Concentration - - Weight 56.4 kg (124 lb 4.8 oz) 05/15/2023 2:59 P M EDT Height 156 cm (5' 1.42") 05/15/2023 2:59 PM EDT Body Mass Index 23.17 05/15/2023 2:59 PM EDT documented in this encounter Progress Notes * Andressa Bernal MD - 05/15/2023 3:21 PM EDT SUBJECTIVE: Karen Fuller is a 72 year old female. Chief Complaint Patient presents with Follow Up The pt stated she is here for her annual follow up HPI: Patient presents For Annual exam. I have reviewed the patient's medications and allergies, past medical, surgical, social and family history, updating these as appropriate. See Histories section of the electronic medical record for adisplay of this information. Wt Readings from Last 5 Encounters: 05/15/23 56.4 kg (124 lb 4.8 oz) 05/02/23 56.1 kg (123 lb 11.2 oz) 03/10/23 57 kg (125 lb 11.2 oz) 01/24/23 55.3 kg (122 lb) 01/10/23 55.3 kg (122 lb) BP Readings from Last 4 Encounters: 05/15/23 134/70 05/02/23 124/75 01/24/23 122/70 11/21/22 121/63 07/30/18--SCIENCE TUTOR eval>Prior PCP in [place] Brando Herzog . 09/08-Rev scanned reports in chart. No HTN/DM/dyslipidemia TSH, lipids,FBS nml 07/2018 Essential thrombocytosis diagnosed in 2011 and on Hydrea 500 mg 6 days a week., aspirin 81 mg daily CBC in March showed WBC of 8.1, hemoglobin 16, platelets of 457. June [address] of the abdomen and pelvis which showed mild splenomegaly, status post hysterectomy and a moderate hiatal hernia 08/03/18>NML TSH,lipids, lft,bmp ex Na+ 148---dec salt in diet. --Cbc with Platelet ct 561--inc hydrea 500mg from 6d/wk to daily. -- Hb hi at 16.8--I added on ferritin, iron to labs.drawn.--ferritin 13.6, Tsat 13% Saw Mami 08/10/18--fu onc 12/07-ct hydrea ,asa daily, hi HB last 3--awaiting rec prior onc. 8/19--inc to 500 mg alt 1000 mcg qod 07/09--JAK2 mutation+, on hydrea 500 alt 1000 mg qod 6d/wk now---PL nml Now,MCV 105 04/09--stable Pl ct, MCV hi sec hydrea per hem-onc. --04/10- Pl ct nml in 2019, but this yr in 500 range --taking 1000 mg MWF, 500mg TTS and none on Monday --sent TEl enc to Mami. 05/12--on 500mg alt 1000 mg qod>05/13--now 6d/wk H/o Right breast cancer status post right lumpectomy in 1993 with lymph node dissection followed bychemo+radiation. Mammogram neg 02/27/17; she had in February 2018 per pt.--need copies 03/08--The breasts are heterogeneously dense, which may obscure small masses. Postsurgical changes related to breast conserving surgery for carcinoma are noted in the right breast. No new dominant mass or clustered microcalcifications suspicious for malignancy are identified Neg 03/09, 04/06/21>04/18/22>04/20/23- Gastroesophageal reflux disease, mod hiatal hernia Was on Nexium 40 mg daily for many years., chg protonix 40mg 08/07 H/o EGD 02/12/18- Dr.Mark Medina--moderate hiatal hernia:Has mod HH on CT. 09/08-Ct to have cough at night, uses 1 pillow, cannot use 2 pillows; rec raise HOB Either raisers/wedge Will + zantac hs Freddy Banks 12/07--rec EGD, trujillo eso ph monitor and eso manometry, they dc protonix from list 12/28/18-EGD--mod HH, erosive gastropathy 01/09/19-- TRUJILLO esophageal pH study- Done. No significant reflux Esophageal manometry- Done normal Saw Duyen -was rec fu pulm reg chr cough.-has appt may 27--as above--rec trial pepcid 07/09--is off zantac, GI st prilosec 20mg 04/08, pulm inc bid 06/03/19. 04/09-trial cipro for Possible SIBO and xifaxan in sep -no imp of abd bloating/reflux>-now back on nexium, fu GI reg--has been referred for 2nd opinion to Swathi to see if she is candidate for TIF (transoral incisionless fundoplication) 04/10-- SP Laparoscopic Paraesophageal Hernia Repair And Linx placement on 11/16/[address] Olmos Had tele visit 12/09 and recommended continue PPI and simethicone, upper GI prior to visit 04/14/21--UGI-nml. [facility] 04/12/21 , magnetic device lower esophagus. Sx HB better, cough persists, wt stable 05/12---same sx--f/u GI--on CT 11/24/21--Postoperative changes the GE junction with wall thickening versus nondistention as before. Tiny hiatal hernia, saw GI surgeon 01/25/22 --n/t nexium otc few weeks as was not covered by ins and prilosec does not help her, no worsening sx now. 11/21/2268-SLK-Sxp-severe reflux esophagitis with no bleeding. - Congested, erythematous and eroded mucosa in the stomach. BX_focal reactive change and focal mild chronic inactive gastritis. Negative forH. Pylori 05/13--taking ppi at hs per gen surg appt in january H/o colonoscopy X 3 -last by Dr.Giles Garcia -- no polyps removed, no FH CRC colonoscopy 08/12/2014 showed long redundant colon rec repeat in 5 years Complains of 1 episode of some scant amount of bleeding per rectum. Has not had any recurrence. No drop in HB. 03/08-sx loose stools-- 04/0888-tylub-wgc-rpt 5 yrs--03/2024 Dexa: 02/2016--LS -0.1, hip -1.4>> had rpt 03/07---0.1/-1.4--FRAX 14/2,4%. >03/09-0.6/-2.0--rpt 2 yrs 03/21/22--Dexa scan -T-score invalid at Lumbar spine: -2.3 left hip, dec 4% from prior with high riskof hip fracture, h/o Laparoscopic Paraesophageal Hernia Repair And Linx placement on 11/16/2020 withDr. Olmos. Refer to [facility] for evaluation.--sp lilly and will start prolia 05/03/22 Saw oral surgeon 11/10 , had surgery in December and dental implant in February, crown in 2 wks--DrEngroff -to be rosemary for prolia History of stress incontinence status post sling procedure in 2009, partial hysterectomy 1980. -was on oxybutynin 5 mg twice a day the liquid form she would like to change it to tablet form. ---of since 05/12--no dysuria/hematuria,occ nocturia, saw ORTHOPEDIC PODIATRIST 11/25/21. Chronic rhinitis currently taking both Flonase and Nasacort twice a day advised to just stick with 1 nasal spray, Roseanne 1 tablet daily. has seen an pantograph operator in the past and states allergic to mold, had seen ENT and had a CT in the past, also saw pulmonology for chronic cough and had a workup which she states was negative--DrApostle. --we rec using only 1 ENT eval 08/07--+astelin , saline rinse Allergy appt 10/04/18--rec to be off meds 7d Still has cough------see GERD rec above --if n/b refer GI to consider Stas 11/06--allergy notes rev---skin tests neg, none meds helped-fu prn, fu pulm 07/09--saw pulm-had TBL-ctvbgh-wqj, HRCT chest--mod HH--no int chg, pulm+atrovent--no imp 07/09-CT chest-no ac findings. 04/09--fu pulm--was st CPAP but felt had aerophagia, pain in jaw--is chg over to Bipap. Still feels has sinu congestion, clear phelgm on waking--has fu ENT in am 04/10---sa same--taking roseanne daily and mucinex, atrovent ns pulm eval 05/10>Wakes her up daily, suspected upper airway cough syndrome PFT normal Consider MCT CT showing scarring of both upper lobes-possible radiation induced. Consider swallow study Tried and failed Advair Serevent, Flovent and breo made no difference recently. Continue albuterol hfa every 4 hours prn cough, wheeze and sob. Use 15 minutes before exercise 05/12--CT scan face>normal. Specifically, no focal inflammatory changes are evident in the regionof the submandibular glands. Severe BAYLEE on bipap, aerophagia, insomnia, chr cough,pnd Sleep study02/2019, noc oximetry 04/2021--sleep clinic follow-up 01/24/2023, to continue BiPAP, try Flonase during the day and ipratropium at bedtime -started using Roseanne today for mild congestion Renal Cyst-: 07/09-CT chest-A 5.1 cm left renal upper pole cyst. Nonobstructive left renal stones. Punctate parenchymal calcification in the left renal upper pole. Tiny right renal upper pole cyst 03/09-renal US--cysts-3 x 1cm on right, 1 x 5 cm on left ,no stones. 04/09--no sx hematuria.had seen urology in past)-ch UA-nml She also had a cardiac workup in 2009 and states everything was normal. EKG--2011- NSR no abn. Splenic artery aneurysm 1.6cm on CT chest- 2018-was ref to vasc- -saw Chelsi 08/16/19--had CTA abd >rec [address] Splenomegaly sec to thrombocytosis. --had CT 12/10--rec 2 yr fu- -is kim 11/28/2023 History of basal cell cancer on the right side of the nose status post surgery in 2009. F/u derm every sep Taking multiple supplements as advised by her daughter--now off with pandemic Chronic arthritis of both her shoulders Hep C ab neg 2015, neg JOS/RF 02/10-- SLE reflex, NAM, HLA-B27, ESR, CRP, RF, CCP --per rheum for iritis--neg All other ROS neg' Labs reviewed, sodium slightly low and potassium slightly high, she generally drinks at least 4 cups of water before her lab tests, no hypertension, no weight gain. smoked few cigarettes in the past, rare use of alcohol Has advanced directives wishes to be a full code, DNR if terminal only, daughter Ekta Perera is power of litigation attorney Family history: mother in 1979 of CUP, history of CVA in the past., father in 2002 from a blood clot after hip surgery. Brother was treated for a heart disorder and seizure of unknown origin in 2017. ------- Discussed about covid booster and RSV vaccine. Immunization History Administered Date(s) Administered COVID-19 mRNA, LNP-s, No Preserve, 2-Dose Series (EverZero) 09/23/2020, 10/14/2020, 05/24/2021, 12/06/2021, 12/19/2022 Pneumococcal Conjugate Vacc, 13 Valent (Prevnar) 05/11/2009, 05/13/2016, 05/21/2017 Pneumococcal Polysaccharide PPV23 (Pneumovax) 05/11/2009, 05/13/2016, 07/04/2019 Season Influenza, Quad, PF, Adjuvanted, 65+ Yrs, IM (FLUAD) 05/07/2020 Seasonal Influenza Virus Vaccine, Unspecified Formulation 07/03/2018, 06/10/2019 Seasonal Influenza, QUAD, with Preserv, 6 mons & Above, 0.5 mL, IM 06/10/2012, 05/16/2014, 05/13/2016, 05/12/2017 Seasonal Influenza, Quadrivalent Hd (Fluzone Hd) 06/08/2021, 05/02/2023 Seasonal Influenza, Trivalent, High Dose, No Preserve, IM 07/03/2018, 06/10/2019 TDAP (age 10 and older)(Boostrix) 08/30/2011, 08/25/2021 Varicella Zoster Vaccine (Adult) 12/07/2010 Zoster Vaccine Recombinant (Shingrix) 08/29/2019, 11/19/2019 TSH Results: Lab Results Component Value Date/Time TSH - [facility] 1.26 08/03/2018 08:38 AM Hemoglobin AIC Results: Lab Results Component Value Date/Time HEMOGLOBIN A1C - [facility] 5.5 04/26/2022 11:09 AM Lipid Panel Results: Results for orders placed or performed in visit on 08/03/18 LIPID PANEL Result Value Ref Range HOURS FASTING >8 HOURS hours Triglycerides 67 <200 mg/dL Cholesterol 144 <200 mg/dL HDL Cholesterol 79 >39 mg/dL Cholesterol-HDL Ratio 1.8 LDL Cholesterol 52 0 - 129 mg/dL Component Latest Ref Rng 04/26/2022 09/27/2022 BUN 6 - 20 mg/dL 12 13 Creatinine 0.5 - 1.0 mg/dL 0.8 0.8 Estimated Glomerular Filtration Rate >=60 mL/min 79 77 Sodium 135 - 146 mmol/L 137 133 (L) Potassium 3.5 - 5.1 mmol/L 4.8 4.3 Chloride 98 - 107 mmol/L 97 (L) 97 (L) CO2 22 - 32 mmol/L 28 25 Anion Gap 7 - 15 mmol/L 12 11 Glucose 70 - 120 mg/dL 97 121 (H) Calcium 8.4 - 10.2 mg/dL 9.1 9.2 Albumin 3.8 - 5.0 g/dL 4.4 AST 10 - 35 U/L 22 Alkaline Phosphatase 35 - 130 U/L 73 ALT 10 - 35 U/L 13 Bilirubin, Total <=1.2 mg/dL 0.3 Protein 6.0 - 8.3 g/dL 6.8 Component Latest Ref Rng 04/25/2023 BUN 6 - 20 mg/dL 14 Creatinine 0.5 - 1.0 mg/dL 0.8 Estimated Glomerular Filtration Rate >=60 mL/min 73 Sodium 135 - 146 mmol/L 135 Potassium 3.5 - 5.1 mmol/L 5.2 (H) Chloride 98 - 107 mmol/L 98 CO2 22 - 32 mmol/L 26 Anion Gap 7 - 15 mmol/L 11 Glucose 70 - 120 mg/dL 104 Calcium 8.4 - 10.2 mg/dL 9.0 Albumin 3.8 - 5.0 g/dL 4.1 AST 10 - 35 U/L 19 Alkaline Phosphatase 35 - 130 U/L 86 ALT 10 - 35 U/L 19 Bilirubin, Total <=1.2 mg/dL 0.4 Protein 6.0 - 8.3 g/dL 6.2 (L) Low (H) High Patient Active Problem List Diagnosis Code History of right breast cancer Z85.3 Gastroesophageal reflux disease without esophagitis K21.9 Essential thrombocytosis (HCC) D47.3 Mixed stress and urge urinary incontinence N39.46 S/P repair of paraesophageal hernia Z98.890, Z87.19 Advance directive in chart Z78.9 History of basal cell carcinoma (BCC) excision Z98.890, Z85.828 History of colonoscopy Z98.890 Chronic cough R05.3 History of skin cancer Z85.828 Osteopenia of neck of left femur M85.852 Renal cyst, left N28.1 History of radiation therapy Z92.3 Apical lung scarring J98.4 BAYLEE (obstructive sleep apnea) G47.33 Aerophagia F45.8 Cervicalgia M54.2 Paraesophageal hernia K44.9 Senile osteoporosis M81.0 Current Outpatient Medications Medication Sig Dispense Refill Multiple Vitamin (MULTI-DAY) Tablet Take 1 Tab by mouth daily. Veylrfd-Qhqdornozd-Meplrci D 250-107-500 MG-MG-UNIT Oral Tablet Chewable - 1000 mg ca/d 1 Tab 0 Simethicone 180 MG Oral Capsule Take by mouth as needed for Gas. CPAP every night at bedtime. Fexofenadine HCl 180 MG Oral Tablet Take 1 Tablet by mouth daily as needed for Allergies. Eliquis 5 MG Oral Tablet (Apixaban) TAKE 1 TABLET BY MOUTH EVERY DAY IN THE MORNING AND BEFORE BEDTIME 180 Tablet 2 metroNIDAZOLE 0.75 % External Cream (MetroCream) Apply topically to affected area 2 times a day. apply to affected area. 45 g 5 Omeprazole 20 MG Oral Capsule Delayed Release (PriLOSEC) Take 1 Capsule by mouth in the morning. 90Capsule 3 Hydroxyurea 500 MG Oral Capsule (Hydrea) TAKE 1 CAPSULE BY MOUTH ALTERNATING WITH 2 CAPSULES BY MOUTH EVERY OTHER DAY TAKING 6 DAYS A WEEK 135 Capsule 3 Ipratropium Maiden 0.03 % Nasal Solution (Atrovent) Administer 2 Sprays into nostril in the morning and 2 Sprays before bedtime. (Patient taking differently: Administer 2 Sprays into nostril as needed for Rhinitis.) 90 mL 3 Fluticasone Propionate 50 MCG/ACT Nasal Suspension (Flonase) ADMINISTER 2 SPRAYS INTO EACH NOSTRIL EVERY DAY 48 mL 3 Tums 500 MG Oral Tablet Chewable Take 2 Tablets by mouth every 4 hours as needed for Heartburn. Taking 6-10. guaiFENesin ER 600 MG Oral Tablet Extended Release 12 Hour Take 1 Tablet by mouth in the morning and 1 Tablet before bedtime. Dicyclomine HCl 10 MG Oral Capsule (Bentyl) Take by mouth 1 Capsule in the morning AND 1 Capsule before bedtime. (Patient taking differently: Take 1 Capsule by mouth as needed.) 180 Capsule 3 No current facility-administered medications for this visit. Outpatient Medications Prior to Visit Medication Sig Dispense Refill Fluticasone Propionate 50 MCG/ACT Nasal Suspension (Flonase) ADMINISTER 2 SPRAYS INTO EACH NOSTRIL EVERY DAY 48 mL 3 Ipratropium Maiden 0.03 % Nasal Solution (Atrovent) Administer 2 Sprays into nostril in the morning and 2 Sprays before bedtime. (Patient taking differently: Administer 2 Sprays into nostril as needed for Rhinitis.) 90 mL 3 Hydroxyurea 500 MG Oral Capsule (Hydrea) TAKE 1 CAPSULE BY MOUTH ALTERNATING WITH 2 CAPSULES BY MOUTH EVERY OTHER DAY TAKING 6 DAYS A WEEK 135 Capsule 3 Omeprazole 20 MG Oral Capsule Delayed Release (PriLOSEC) Take 1 Capsule by mouth in the morning. 90Capsule 3 metroNIDAZOLE 0.75 % External Cream (MetroCream) Apply topically to affected area 2 times a day. apply to affected area. 45 g 5 Eliquis 5 MG Oral Tablet (Apixaban) TAKE 1 TABLET BY MOUTH EVERY DAY IN THE MORNING AND BEFORE BEDTIME 180 Tablet 2 Fexofenadine HCl 180 MG Oral Tablet Take 1 Tablet by mouth daily as needed for Allergies. CPAP every night at bedtime. Simethicone 180 MG Oral Capsule Take by mouth as needed for Gas. Apzrxit-Ghxlleoerl-Gdykarq D 250-107-500 MG-MG-UNIT Oral Tablet Chewable - 1000 mg ca/d 1 Tab 0 Multiple Vitamin (MULTI-DAY) Tablet Take 1 Tab by mouth daily. Dicyclomine HCl 10 MG Oral Capsule (Bentyl) Take by mouth 1 Capsule in the morning AND 1 Capsule before bedtime. (Patient taking differently: Take 1 Capsule by mouth as needed.) 180 Capsule 3 guaiFENesin ER 600 MG Oral Tablet Extended Release 12 Hour Take 1 Tablet by mouth in the morning and 1 Tablet before bedtime. Tums 500 MG Oral Tablet Chewable Take 2 Tablets by mouth every 4 hours as needed for Heartburn. Taking 6-10. No facility-administered medications prior to visit. Last reviewed on 05/15/2023 2:59 PM by Prateek Schulz LPN Past Medical History: Diagnosis Date Breast cancer (HCC) 1993 right breast ca Chronic cough 09/06/2018 Chronic rhinitis 07/30/2018 Essential thrombocytosis (HCC) 07/30/2018 Gastroesophageal reflux disease without esophagitis 07/30/2018 Hiatal hernia 07/30/[address] 07/06/17 History of right breast cancer 07/30/2018 1994, mammo -03/07 in [place] History of skin cancer 10/01/2018 Hypersomnolence 09/19/201808/07-+snoring,fatigue-- nocturnal oximetry shows desaturation to 89 % with pattern of sleep disordered breathing.,Needs sleep clinic eval- pulmonary referral placed. Mixed stress and urge urinary incontinence 07/30/2018 Rhinitis, nonallergic 10/05/2018 acute Sleep apnea, obstructive Tinnitus, subjective, bilateral 08/02/2018 Tinnitus, subjective, bilateral 08/02/2018 Past Surgical History: Procedure Laterality Date BREAST BIOPSY Right 1993 malignant BREAST BIOPSY Left benign CHEMOTHERAPY 1993 CHEMOTHERAPY BY INFUSION 1993 COLONOSCOPY, DIAGNOSTIC (RECTUM) 04/03/2019 normal, repeat 5 yrs/COLONOSCOPY FLEXIBLE PROXIMAL DIAGNOSTIC performed by Marlena Palacio DO at ENDOSCOPY [facility] EGD, FLEXIBLE, DIAGNOSTIC 12/28/2018 erosive gastropathy, hiatal hernia/ESOPHAGOGASTRODUODENOSCOPY (EGD), FLEXIBLE, TRANSORAL, DIAGNOSTIC performed by Doe Blue MD at ENDOSCOPY [facility] EGD, FLEXIBLE, DIAGNOSTIC N/A 11/16/2020 ESOPHAGOGASTRODUODENOSCOPY (EGD), FLEXIBLE, TRANSORAL, DIAGNOSTIC performed by Valorie Keating OR [facility] EGD, FLEXIBLE, DIAGNOSTIC 11/21/2022 non-severe reflux esophagitis/congested, erythematous and eroded mucosa stomach/biopsies show mild irriation of stomach/ESOPHAGOGASTRODUODENOSCOPY (EGD), FLEXIBLE, TRANSORAL, DIAGNOSTIC performed by Marlena Palacio DO at [facility]OSCOPY [facility] LAP ESOPHAGEAL SPHINCTER AUGMENT, PLACE DEVICE CRUROPLASTY N/A 11/16/2020 LAPAROSCOPIC INSERTION ESOPHAGEAL SPHINCTER DEVICE performed by Jayro Olmos MD at OR [facility] MASTECTOMY, PARTIAL Right 1993 Stage 1, with SLNB PARAESOPHAGEAL HERNIA REPAIR, LAP W/O MESH N/A 11/16/2020 LAPAROSCOPIC PARAESOPHAGEAL HERNIA REPAIR WO/ MESH performed by Jayro Omlos MD at OR [facility] RADIATION THERAPY 1993 right breast RADIATION THERAPY MANAGEMENT 1993 SENTINEL LYMPH NODE BIOPSY PERFORMED Right 1993 complete dissection on right side Review of patient's allergies indicates: Allergen Reactions Adhesive Tape Rash Molds & Smuts Cough Family History Problem Relation Age of Onset Cancer Mother Hypertension Mother Stroke Mother Breast Cancer Mother 60 No Known Problems Father Allergies Sister food allergies Allergies Daughter allergic rhinitis; food allergies Autoimmune disease Daughter SLE and Sjogren's Allergies Daughter hayfever Social History Tobacco Use Smoking status: Former Packs/day: 0.10 Years: 10.00 Pack years: 1.00 Types: Cigarettes Quit date: 07/30/1974 Years since quittin.8 Smokeless tobacco: Never Tobacco comments: Pt was a social smoker. Vaping Use Vaping Use: Never used Substance Use Topics Alcohol use: Yes Comment: social Drug use: No OBJECTIVE: BP 134/70 | Pulse 81 | Temp 36.5 C (97.7 F) | Ht 1.56 m (5' 1.42") | Wt 56.4 kg (124 lb 4.8 oz)| SpO2 98% | BMI 23.17 kg/m | BSA 1.56 m PHYSICAL EXAM: General: alert, healthy, no distress, well nourished and well developed--chr dry cough Head: Normocephalic, atraumatic Eye Exam: PERRLA, EOMI, Conjunctiva are pink and non-injected, sclera clear Ears: External ears normal, Canal clear, Tm sl dull veda Nose: scar Rt nasal ala, no mucosal erythema, no mucosal edema, no purulent discharge Oropharynx: no exudate and no erythema, difficult to see oropharynx due to patient cooperation veda sub morgan salivary glands palpable, non tender Neck: supple, no bruits, no JVD, thyroid normal size, non-tender, without nodularity Lymph: No palpable lymphadenopathy. Heart: Regular rhythm and rate, no murmurs and no gallops Lungs: lungs clear to auscultation Abdomen: Soft, non-tender, normal bowel sounds, no masses or organomegaly, no bruits Extremities: no edema, no clubbing, no cyanosis. Neuro Exam: alert & oriented x 3 with fluent speech, no focal motor/sensory deficits, gait normal Skin: skin color, texture, turgor are normal, no rashes ASSESSMENT/PLAN: S/P repair of paraesophageal hernia (Primary) - MAGNESIUM; Future; Expected date: 05/22/2023 - VITAMIN B12; Future; Expected date: 05/22/2023 Chronic cough - MAGNESIUM; Future; Expected date: 05/22/2023 - VITAMIN B12; Future; Expected date: 05/22/2023 Gastroesophageal reflux disease with esophagitis without hemorrhage - HIGH RISK OSTEOPOROSIS CLINIC REFERRAL OP - MAGNESIUM; Future; Expected date: 05/22/2023 - VITAMIN B12; Future; Expected date: 05/22/2023 Encounter for long-term (current) use of medications - MAGNESIUM; Future; Expected date: 05/22/2023 - VITAMIN B12; Future; Expected date: 05/22/2023 ct current meds History of right breast cancer Dense breast tissue on mammogram Utd Essential thrombocytosis (HCC) Ct fu hem/onc BAYLEE (obstructive sleep apnea) Ct fu sleep cl History of colonoscopy Next due 03/2024 Lipid screening - LIPID PANEL WITH DIRECT LDL IF TG IS HIGH; Future; Expected date: 05/22/2023 Screening for diabetes mellitus - HEMOGLOBIN A1C; Future; Expected date: 05/22/2023 Senile osteoporosis - HIGH RISK OSTEOPOROSIS CLINIC REFERRAL OP Other abnormal glucose - HEMOGLOBIN A1C; Future; Expected date: 05/22/2023 Electrolyte imbalance - TSH WITH FREE T4 IF INDICATED; Future; Expected date: 05/22/2023 Hyponatremia - TSH WITH FREE T4 IF INDICATED; Future; Expected date: 05/22/2023 History of radiation therapy Apical lung scarring Splenic artery aneurysm (HCC) For CT 11/28/23 per Bradenarvin Follow Up: Return in about 1 year (around 05/15/2024) for Return with Physician. | For: Return with Physician | Check-out note: Due for prolia 2--pl kim appt HIRVALE Bernal MD 04/26/2022 documented in this encounter Nursing Notes * Prateek Schulz LPN - 05/15/2023 2:59 PM EDT Chief Complaint Patient presents with Follow Up The pt stated she is here for her annual follow up documented in this encounter Plan of Treatment Upcoming Encounters Date Type Specialty Care Team Description 05/19/2023 Immunization/Injection Rheumatology Pf, Nurse Rheum [address] [place] [address] 05/22/2023 Laboratory Laboratory [place], Lab Scenery [address] [place] [address] 07/24/2023 Laboratory Laboratory [place], Lab Scenery [address] [place] [address] 07/25/2023 Office Visit Sleep Disorders Mandy Kim CRNP [address] [place] [address] 09/26/2023 Laboratory Laboratory [place], Lab Scenery [address] [place] [address] 11/21/2023 Laboratory Laboratory [place], Lab Scenery [address] [place] [address] 11/28/2023 Imaging Radiology 11/28/2023 Office Visit Hematology Oncology Real Alexander MD [address] [place] [address] 01/16/2024 Office Visit Dermatology Charisma Hernandez MD 04/30/2024 Imaging Radiology 05/20/2024 Office Visit Internal Medicine Andressa Bernal MD [address] [place] [address] Scheduled Orders Name Type Priority Associated Diagnoses Orde r Schedule MAGNESIUM Lab Routine S/P repair of paraesophageal hernia Chronic cough Gastroesophageal reflux disease with esophagitis without hemorrhage Encounter for long-term (current) use of medications Expected: 05/22/2023 (Approximate), Expires: 05/14/2024 VITAMIN B12 Lab Routine S/P repair of paraesophageal hernia Chronic cough Gastroesophageal reflux disease with esophagitis without hemorrhage Encounter for long-term (current) use of medications Expected: 05/22/2023 (Approximate), Expires: 05/14/2024 LIPID PANEL WITH DIRECT LDL IF TG IS HIGH Lab Routine Lipid screening Expected: 05/22/2023 (Approximate), Expires: 05/15/2024 HEMOGLOBIN A1C Lab Routine Screening for diabetes mellitus Other abnormal glucose Expected: 05/22/2023 (Approximate), Expires: 05/14/2024 TSH WITH FREE T4 IF INDICATED Lab Routine Electrolyte imbalance Hyponatremia Expected: 05/22/2023 (Approximate), Expires: 05/14/2024 Scheduled Procedures Name Priority Associated Diagnoses Date/Ti me COLONOSCOPY FLEXIBLE PROXIMAL DIAGNOSTIC Recall History of colon polyps Scheduled Referrals Name Type Priority Associated Diagnoses Orde r Schedule HIGH RISK OSTEOPOROSIS CLINIC REFERRAL OP Referral Within 10 days (routine) Gastroesophageal reflux disease with esophagitis without hemorrhage Senile osteoporosis Ordered: 05/15/2023 Health Maintenance Due Date Last Done Comments Depression Screening 04/06/2021 04/06/2020 *BISPHONATE OR OTHER ACCEPTABLE MEDICATION NEEDED FOR OSTEOPOROSIS (REFER TO SMARTSET #1146) 11/03/2022 DXA Scan 03/21/2024 03/21/2022, 02/18, 02/28/2018, Additional [...] D LEVEL ONCE IN A LIFETIME-USE SMARTSET# 04347 Completed 05/04/2023, 04/26/2022 GARDASIL-HPV IMMUNIZATION SERIES Aged Out No longer eligible based on patient's age to complete this topic Hepatitis B Aged Out No longer eligi ble based on patient's age to complete this topic MENINGOCOCCAL (MENACTRA/MENVEO) Aged Out No longer eligible based on patient's age to complete this topic documented as of this encounter Medical Devices Implanted Type Area Tariff Supervisor Device Identifier Shelf Expiration Date Model / Serial / Lot Reflux Management System 15 - [id number] Implanted:Qty: 1 on 11/16/2020 by Jayro Olmos MD at OR [facility] [place] : [employer] [id number] 05/02/2023 LXM C15 / / [id number] documented as of this encounter Visit Diagnoses Diagnosis S/P repair of paraesophageal hernia- Primary Other postprocedural status Chronic cough Cough Gastroesophageal reflux disease with esophagitis without hemorrhage Encounter for long-term (current) use of medications Encounter for long-term (current) use of other medications History of right breast cancer Dense breast tissue on mammogram Essential thrombocytosis (HCC) Essential thrombocythemia BAYLEE (obstructive sleep apnea) Obstructive sleep apnea (adult) (pediatric) History of colonoscopy Other postprocedural status Lipid screening Screening for lipoid disorders Screening for diabetes mellitus Senile osteoporosis Other abnormal glucose Electrolyte imbalance Electrolyte and fluid disorders not elsewhere classified Hyponatremia Hyposmolality and/or hyponatremia History of radiation therapy Personal history of irradiation, presenting hazards to health Apical lung scarring Other diseases of lung, not elsewhere classified Splenic artery aneurysm (HCC) Aneurysm of splenic artery documented in this encounter Advance Directives Documents on File Type Date Recorded Patient Manager Game Expl anation Advance Directives and Livin g Will 12/13/2016 ADVANCE DIRECTIVE Power of Tobacco Baler 12/13/2016 POWER OF A TTORNEY Latest Code Status on File Code Status Date Activated Date Inactivated Comments Full Code 11/16/2020 3:04 PM 11/17/2020 4:16 PM This order reflects the patients wishes and were consensually agreed upon. Care Teams Timber Cruiser Relationship Specialty Start Date End Date Andressa Bernal MD [address] [place] [id number] PCP - General Internal Medicine 07/30/18 documented as of this encounter
--- OUTSIDE RECORDS SUMMARY | 2023-07-05 23:14 | External Medical Summary ---
Author Name Unknown Address Unknown Organization K09:[facility] [place] [address] Laboratory Report Ordering Provider Test Date Status DILEEP GIFFORD 05/22/2023 13:25:32 Final Observation Date Value Abnormality Reference (Units ) Status WBC, Total 05/22/2023 13:25:32 4.80 4.00-10.8 0 (K/uL) Final RBC 05/22/2023 13:25:32 4.06 3.85-5.15 (M/uL) Final Hemoglobin 05/22/2023 13:25:32 13.6 12.0-15.3 (g/dL) Final HCT 05/22/2023 13:25:32 41.4 36.0-45.2 (%) Final MCV 05/22/2023 13:25:32 102.0 81.5-97.5 (fL) Final MCH 05/22/2023 13:25:32 33.5 27.0-34.0 (pg) Final MCHC 05/22/2023 13:25:32 32.9 32.0-36.0 (g/dL) Final RDW 05/22/2023 13:25:32 14.2 11.5-15.5 (%) Final Platelets 05/22/2023 13:25:32 312 140-400 (K /uL) Final MPV 05/22/2023 13:25:32 9.9 6.6-11.1 ( fL) Final Performing Location [facility] [place] [address]
--- OUTSIDE RECORDS SUMMARY | 2023-07-05 23:14 | External Medical Summary | Summary of Care ---
Author Name Unknown Organization [facility] Address [address] [place] [address] Phone [phone] Care Team Providers Care Mechanical Field Engineer Name Role Phone Andressa Bernal MD Primary Care Provider [phone] Reason for Visit * Reason Onset Date Comments Referral 05/15/2023 Encounter Details Date Type Department Care Team Description 05/15/2023 Telephone General Internal Medicine [facility] [place] [address] [facility] [place] [phone] Andressa Bernal MD [facility] [address] Referral Allergies Active Allergy Reactions Severity Noted Date Comments Adhesive Tape Rash 04/03/2019 Molds & Smuts Cough 07/30/2018 documented as of this encounter (statuses as of 05/16/2023) Medications Medication Sig Dispensed Refills Start Date End Date Status Multiple Vitamin (MULTI-DAY) TabletIndications:Men opause Take 1 Tab by mouth daily. 0 Active Tums 500 MG Oral Tablet Chewable Take 2 Tablets by mouth every 4 hours as needed for Heartburn. Taking 6-10. 0 Active Xolgjcy-Dvtxzqpyej-Yp tamin D 250-107-500 MG-MG-UNIT Oral Tablet Chewable [...] WEEK 135 Capsule 3 01/23/2023 Active Ipratropium [place] 0.03 % Nasal Solution (Atrovent) Administer 2 Sprays into nostril in the morning and 2 Sprays before bedtime. 90 mL 3 01/24/2023 Active Additional Information Patient taking differently:2 [place] NasalPRN, Rhinitis, Reported on 05/15/2023 Fluticasone Propionate 50 MCG/ACT Nasal Suspension (Flonase) ADMINISTER 2 SPRAYS INTO EACH NOSTRIL EVERY DAY 48 mL 3 01/24/2023 Active documented as of this encounter (statuses as of 05/16/2023) Active Problems Problem Noted Date Senile osteoporosis [...] as of this encounter (statuses as of 05/16/2023) Resolved Problems Problem Noted Date Resolved Date Rhinitis, nonallergic 10/05/2018 07/02/2019 Overview: acute Hypersomnolence 09/19/2018 09/28/2020 Overview: 08/07-+snoring,fatigue-- nocturnal oximetry shows desaturation to 89 % with pattern of sleep disordered breathing.,Needs sleep clinic eval- pulmonary referral placed. Tinnitus, subjective, bilateral 08/02/2018 07/02/2019 Chronic rhinitis 07/30/2018 10/05/2018 documented as of this encounter (statuses as of 05/16/2023) Immunizations Name Administration Dates Next Due COVID-19 mRNA, LNP-s, No Pre serve, 2-Dose Series ([employer]) 12/19/2022,12/06/2021,05/24/2021,10/14,09/23/2020 Pneumococcal Conjugate Vacc, 13 Valent (Prevnar) [...] encounter Miscellaneous Notes * Telephone Encounter - BAYLEE Nieto - 05/16/2023 7:47 AM EDT Please check the Recall List for pts that saw Antionette Green or Dr. Enriquez. We are still 2 providers short and have very limited available appts and there are over 900 pts on the Recall List. Pts that needed seen in December, January, February and March are still waiting for appts. * Telephone Encounter - BAYLEE hPan - 05/15/2023 4:26 PM EDT Scheduled pt for prolia shot 2, please assist with [facility] referral. Pt saw Norma in December, never got scheduled f/u documented in this encounter Plan of Treatment Upcoming Encounters Date Type Specialty Care Team Description 05/19/2023 Immunization/Injection Rheumatology Pf, Nurse Rheum [address] [place] [address] 05/22/2023 Laboratory Laboratory [place], Lab Scenery [address] [place], [place] [address] 07/24/2023 Laboratory Laboratory [place], Lab Scenery [address] [place] [address] 07/25/2023 Office Visit Sleep Disorders Mandy Kim CRNP [address] [place] [address] 09/26/2023 Laboratory Laboratory [place], Lab Scenery [address] [place] [address] 11/21/2023 Laboratory Laboratory [place], Lab Scenery [address] [place] [address] 11/28/2023 Imaging Radiology 11/28/2023 Office Visit Hematology Oncology Real Alexander MD [address] [place] [address] 01/16/2024 Office Visit Dermatology Charisma Hernandez MD 04/30/2024 Imaging Radiology 05/20/2024 Office Visit Internal Medicine Andressa Bernal MD [address] [place] [address] Scheduled Procedures Name Priority Associated Diagnoses Date/Ti me COLONOSCOPY FLEXIBLE PROXIMAL DIAGNOSTIC Recall History of colon polyps Health Maintenance Due Date Last Done Comments *BISPHONATE OR OTHER ACCEPTABLE MEDICATION NEEDED FOR [...] D LEVEL ONCE IN A LIFETIME-USE SMARTSET# [id number] Completed 05/04/2023, 04/26/2022 GARDASIL-HPV IMMUNIZATION SERIES Aged Out No longer eligible based on patient's age to complete this topic Hepatitis B Aged Out No longer eligi ble based on patient's age to complete this topic MENINGOCOCCAL (MENACTRA/MENVEO) Aged Out No longer eligible based on patient's age to complete this topic documented as of this encounter Medical Devices Implanted Type Area Motor Builder Winder Device Identifier Shelf Expiration Date Model / Serial / Lot Reflux Management System 15 - [id number] Implanted:Qty: 1 on 11/16/2020 by Jayro Olmos MD at [facility] [place] : [employer] [id number] 05/02/2023 LXM C15 / / [id number] documented as of this encounter Advance Directives Documents on File Type Date Recorded Patient Photographer Expl anation Advance Directives and Livin g Will 12/13/2016 ADVANCE DIRECTIVE Power of Freight Conductor 12/13/2016 POWER OF A TTORNEY Latest Code Status on File Code Status Date Activated Date Inactivated Comments Full Code 11/16/2020 3:04 PM 11/17/2020 4:16 PM This order reflects the patients wishes and were consensually agreed upon. Care Teams Mechanical Field Engineer Relationship Specialty Start Date End Date Andressa Bernal MD [address] [place] [address], [place] [address] PCP - General Internal Medicine 07/30/18 documented as of this encounter
--- OUTSIDE RECORDS SUMMARY | 2023-07-05 23:14 | External Medical Summary | Summary of Care ---
Author Name Unknown Organization [facility] Address [address] [place] [address] Phone [phone] Care Team Providers Care Environmental Services Manager Name Role Phone Andressa Bernal MD Primary Care Provider [phone] Reason for Visit * Reason Comments Outpatient Testing Encounter Details Date Type Department Care Team Description 05/22/2023 Laboratory Laboratory [facility] [place] [address] [place] [address] [facility] [address] [facility] [place] [id number] S/P repair of paraesophageal hernia; Chronic cough; Gastroesophageal reflux disease with esophagitis without hemorrhage; Encounter for long-term (current) use of medications; Lipid screening; Screening for diabetes mellitus; Other abnormal glucose; Electrolyte imbalance; Hyponatremia; Essential thrombocytosis (HCC) Allergies Active Allergy Reactions Severity Noted [...] needed for Heartburn. Taking 6-10. 0 Active Jowfdcn-Vsxwskrahu-Ou tamin D 250-107-500 MG-MG-UNIT Oral Tablet Chewable [...] WEEK 135 Capsule 3 01/23/2023 Active Ipratropium [place] 0.03 % Nasal Solution (Atrovent) Administer 2 Sprays into nostril in the morning and 2 Sprays before bedtime. 90 mL 3 01/24/2023 Active Additional Information Patient taking differently:2 [place] NasalPRN, Rhinitis, Reported on 05/15/2023 Fluticasone Propionate [...] cision 07/30/2018 History of colonoscopy 07/30/2018 Overview: 12/23/14--redundant colon, rpt 5 yrs for h/o polyps(priorGI) [...] mRNA, LNP-s, No Pre serve, 2-Dose Series ([email or web address]) 12/19/2022,12/06/2021,05/24/2021,10/14,09/23/2020 Pneumococcal Conjugate Vacc, 13 Valent (Prevnar) [...] on file documented as of this encounter Plan of Treatment Upcoming Encounters Date Type Specialty Care Team Description 07/24/2023 Laboratory Laboratory [place], Lab Scenery [address] [place] [address] 07/25/2023 Office Visit Sleep Disorders Mandy Kim CRNP [address] [place] [address] 09/26/2023 Laboratory Laboratory [place] Lab Scenery [address] [place] [address] 11/21/2023 Laboratory Laboratory [place] Lab Scenery [address] [place] [address] 11/21/2023 Office Visit Rheumatology Bia Chavez CRNP [address] [place] [address] 11/28/2023 Imaging Radiology 11/28/2023 Office Visit Hematology Oncology Real Alexander MD [address] [place] [address] 01/16/2024 Office Visit Dermatology Charisma Hernandez MD 04/30/2024 Imaging Radiology 05/20/2024 Office Visit Internal Medicine Andressa Bernal MD [address] [place] [address] Pending Results Name Type Priority Associated Diagnoses Date /Time MAGNESIUM Lab Routine S/P repair of paraesophageal hernia Chronic cough Gastroesophageal reflux disease with esophagitis without hemorrhage Encounter for long-term (current) use of medications 05/22/2023 12:56 PM EDT VITAMIN B12 Lab Routine S/P repair of paraesophageal hernia Chronic cough Gastroesophageal reflux disease with esophagitis without hemorrhage Encounter for long-term (current) use of medications 05/22/2023 12:56 PM EDT LIPID PANEL WITH DIRECT LDL IF TG IS HIGH Lab Routine Lipid screening 05/22/2023 12:56 PM EDT HEMOGLOBIN A1C Lab Routine Screening for diabetes mellitus Other abnormal glucose 05/22/2023 12:56 PM EDT TSH WITH FREE T4 IF INDICATED Lab Routine Electrolyte imbalance Hyponatremia 05/22/2023 12:56 PM EDT CBC WITH WBC DIFFERENTIAL Lab STAT Essential thrombocytosis (HCC) 05/22/2023 1:25 PM EDT CBC Lab STAT Essential thrombocytosis (HCC) 05/22/2023 1:25 PM EDT DIFFERENTIAL, AUTOMATED Lab STAT Essential thrombocytosis (HCC) 05/22/2023 1:25 PM EDT Scheduled Procedures Name Priority Associated Diagnoses Date/Ti [...] D LEVEL ONCE IN A LIFETIME-USE SMARTSET# [id number] Completed 05/04/2023, 04/26/2022 GARDASIL-HPV IMMUNIZATION SERIES Aged Out No longer eligible based on patient's age to complete this topic Hepatitis B Aged Out No longer eligi ble based on patient's age to complete this topic MENINGOCOCCAL (MENACTRA/MENVEO) Aged Out No longer eligible based on patient's age to complete this topic documented as of this encounter Medical Devices Implanted Type Area Gas Turbine Powerplant Mechanic Device Identifier Shelf Expiration Date Model / Serial / Lot Reflux Management System 15 - [id number] Implanted:Qty: 1 on 11/16/2020 by Jayro Olmos MD at [facility] [place] : [employer] [id number] 05/02/2023 LXM C15 / / [id number] documented as of this encounter Visit Diagnoses Diagnosis S/P repair of paraesophageal hernia Other postprocedural status Chronic cough Cough Gastroesophageal reflux disease with esophagitis without hemorrhage Encounter for long-term (current) use of medications Encounter for long-term (current) use of other medications Lipid screening Screening for lipoid disorders Screening for diabetes mellitus Other abnormal glucose Electrolyte imbalance Electrolyte and fluid disorders not elsewhere classified Hyponatremia Hyposmolality and/or hyponatremia Essential thrombocytosis (HCC) Essential thrombocythemia documented in this encounter Advance Directives Documents on File Type Date Recorded Patient Complaint Evaluation Supervisor Expl anation Advance Directives and Mireya Harvey 12/13/2016 ADVANCE DIRECTIVE Power of Experimental Rocketsled Mechanic 12/13/2016 POWER OF A TTORNEY Latest Code Status on File Code Status Date Activated Date Inactivated Comments Full Code 11/16/2020 3:04 PM 11/17/2020 4:16 PM This order reflects the patients wishes and were consensually agreed upon. Care Teams Environmental Services Manager Relationship Specialty Start Date End Date Andressa Bernal MD [address] [place] [address] [place] [address] PCP - General Internal Medicine 07/30/18 documented as of this encounter
--- OUTSIDE RECORDS SUMMARY | 2023-07-05 23:14 | External Medical Summary | Summary of Care ---
Author Name Unknown Organization [facility] Address [address] [place] [address] Phone [phone] Care Team Providers Care Enrollment Processor Name Role Phone Andressa Bernal MD Primary Care Provider [phone] Reason for Visit * Reason Onset Date Comments Referral 05/15/2023 Encounter Details Date Type Department Care Team Description 05/15/2023 Telephone General Internal Medicine [facility] [place] 200 [facility] [place] [phone] Andressa [facility] [address] Referral Allergies Active Allergy Reactions Severity Noted [...] needed for Heartburn. Taking 6-10. 0 Active Ygqdcyl-Snecrrrcoc-Iz tamin D 250-107-500 MG-MG-UNIT Oral Tablet Chewable [...] WEEK 135 Capsule 3 01/23/2023 Active Ipratropium [place] 0.03 % Nasal Solution (Atrovent) Administer 2 Sprays into nostril in the morning and 2 Sprays before bedtime. 90 mL 3 01/24/2023 Active Additional Information Patient taking differently:2 [place] NasalPRN, Rhinitis, Reported on 05/15/2023 Fluticasone Propionate [...] mRNA, LNP-s, No Pre serve, 2-Dose Series ([facility]) 12/19/2022,12/06/2021,05/24/2021,10/14,09/23/2020 Pneumococcal Conjugate Vacc, 13 Valent (Prevnar) [...] BAYLEE Nieto - 05/16/2023 7:47 AM EDT This pt does not get Prolia injections. Also, please check the Recall List for pts that saw Antionette Green or Dr. Enriquez. We are still 2 providers short and have very limited available appts and there are over 900 pts on the Recall List. * Telephone Encounter - BAYLEE Phan - 05/15/2023 4:26 PM EDT Scheduled pt for prolia shot 2, please assist with [facility] referral. Pt saw Norma in December, never got scheduled f/u documented in this encounter Plan of Treatment Upcoming Encounters Date Type Specialty Care Team Description 05/19/2023 Immunization/Injection Rheumatology Pf, Nurse Rheum [facility] [place] [place] [address] 05/22/2023 Laboratory Laboratory [place], Lab Scenery [address] [place], [place] [address] 07/24/2023 Laboratory Laboratory [place], Lab Scenery [address] [place], [place] [address] 07/25/2023 Office Visit Sleep Disorders Mandy Kim CRNP [address] [place] [address] 09/26/2023 Laboratory Laboratory [place], Lab Scenery [address] [place] [facility] [address] 11/21/2023 Laboratory Laboratory [place], Lab Scen[address] [place] [address] 11/28/2023 Imaging Radiology 11/28/2023 Office Visit Hematology Oncology Real Alexander MD [address] [place] [address] 01/16/2024 Office Visit Dermatology Charisma Hernandez MD 04/30/2024 Imaging Radiology 05/20/2024 Office Visit Internal Medicine Andressa Bernal MD [address] [place] [address] Scheduled Procedures Name Priority Associated Diagnoses Date/Ti [...] D LEVEL ONCE IN A LIFETIME-USE SMARTSET# [id number] Completed 05/04/2023, 04/26/2022 GARDASIL-HPV IMMUNIZATION SERIES Aged Out No longer eligible based on patient's age to complete this topic Hepatitis B Aged Out No longer eligi ble based on patient's age to complete this topic MENINGOCOCCAL (MENACTRA/MENVEO) Aged Out No longer eligible based on patient's age to complete this topic documented as of this encounter Medical Devices Implanted Type Area Sewer And Cutter Finger Buff Material Device Identifier Shelf Expiration Date Model / Serial / Lot Reflux Management System 15 - [id number] Implanted:Qty: 1 on 11/16/2020 by Jayro Olmos MD at [facility] [place] : [employer] [id number] 05/02/2023 LXM C15 / / [id number] documented as of this encounter Advance Directives Documents on File Type Date Recorded Patient Take Off Man Expl anation Advance Directives and Livin g Will 12/13/2016 ADVANCE DIRECTIVE Power of Instrument Panel Assembler 12/13/2016 POWER OF A TTORNEY Latest Code Status on File Code Status Date Activated Date Inactivated Comments Full Code 11/16/2020 3:04 PM 11/17/2020 4:16 PM This order reflects the patients wishes and were consensually agreed upon. Care Teams Enrollment Processor Relationship Specialty Start Date End Date Andressa Bernal MD 200 [place] [address] PCP - General Internal Medicine 07/30/18 documented as of this encounter
--- OUTSIDE RECORDS SUMMARY | 2023-07-05 23:14 | External Medical Summary | Summary of Care ---
Author Name Unknown Organization [facility] Address [address] [place] [address] Phone [phone] Care Team Providers Care Cleat Thrower Name Role Phone Andressa Bernal MD Primary Care Provider [phone] Reason for Visit * Reason Comments Outpatient Testing Encounter Details Date Type Department Care Team Description 05/04/2023 Laboratory Laboratory [facility] [place] [address] [place] [address] [facility] [address] [facility] [place] [id number] Senile osteoporosis Allergies Active Allergy Reactions Severity Noted Date Comments Adhesive Tape Rash 04/03/2019 Molds & Smuts Cough 07/30/2018 documented as of this encounter (statuses as of 05/04/2023) Medications Medication Sig Dispensed Refills Start Date End Date Status Multiple Vitamin (MULTI-DAY) TabletIndications:Men opause Take 1 Tab by mouth daily. 0 Active Tums 500 MG Oral Tablet Chewable Take 2 Tablets by mouth every 4 hours as needed for Heartburn. Taking 6-10. 0 Active Bzvvxxj-Sqxpigscpz-Id tamin D 250-107-500 MG-MG-UNIT Oral Tablet Chewable [...] WEEK 135 Capsule 3 01/23/2023 Active Ipratropium [place] 0.03 % Nasal Solution (Atrovent) Administer 2 Sprays into nostril in the morning and 2 Sprays before bedtime. 90 mL 3 01/24/2023 Active Fluticasone Propionate 50 MCG/ACT Nasal Suspension (Flonase) ADMINISTER 2 SPRAYS INTO EACH NOSTRIL EVERY DAY 48 mL 3 01/24/2023 Active documented as of this encounter (statuses as of 05/04/2023) Active Problems Problem Noted Date Senile osteoporosis [...] as of this encounter (statuses as of 05/04/2023) Resolved Problems Problem Noted Date Resolved Date Rhinitis, nonallergic 10/05/2018 07/02/2019 Overview: acute Hypersomnolence 09/19/2018 09/28/2020 Overview: 12/18-+snoring,fatigue-- nocturnal oximetry shows desaturation to 89 % with pattern of sleep disordered breathing.,Needs sleep clinic eval- pulmonary referral placed. Tinnitus, subjective, bilateral 08/02/2018 07/02/2019 Chronic rhinitis 07/30/2018 10/05/2018 documented as of this encounter (statuses as of 05/04/2023) Immunizations Name Administration Dates Next Due COVID-19 mRNA, LNP-s, No Pre serve, 2-Dose Series (Pfizer) 12/19/2022,12/06/2021,05/24/2021,10/14,09/23/2020 Pneumococcal Conjugate Vacc, 13 Valent (Prevnar) [...] Encounters Date Type Specialty Care Team Description 05/15/2023 Office Visit Internal Medicine Andressa Bernal MD [address] [place] [address] 05/22/2023 Laboratory [facility] [place], [facility] [place] [address] [place] [address] 07/25/2023 Office Visit Sleep Disorders Mandy Kim CRNP [address] [place] [address] 11/28/2023 Imaging Radiology 11/28/2023 Office Visit Hematology Oncology Real Alexander MD [address] [place] [address] 01/16/2024 Office Visit Dermatology Charisma Hernandez MD 04/30/2024 Imaging Radiology Pending Results Name Type Priority Associated Diagnoses Date /Time 25-HYDROXY VITAMIN D Lab Routine Senile osteoporosis 05/04/2023 12:03 PM EDT Scheduled Procedures Name Priority Associated [...] D LEVEL ONCE IN A LIFETIME-USE SMARTSET# 27403 Completed 04/26/2022 COVID-19 Vaccine Completed 12/19/2022, 06/2022, 12/06/2021, Additional history exists Influenza Vaccine (FLU shot) Completed 07/2023, 06/08/2021, 05/07/2020, Additional history exists GARDASIL-HPV IMMUNIZATION SERIES Aged Out No longer eligible based on patient's age to complete this topic Hepatitis B Aged Out No longer eligi ble based on patient's age to complete this topic MENINGOCOCCAL (MENACTRA/MENVEO) Aged Out No longer eligible based on patient's age to complete this topic documented as of this encounter Medical Devices Implanted Type Area Theatre Director Device Identifier Shelf Expiration Date Model / Serial / Lot Reflux Management System 15 - [id number] Implanted:Qty: 1 on 11/16/2020 by [place]ro Olmos [place] [facility] [place] [employer] [id number] 05/02/2023 [facility] C15 / / [id number] documented as of this encounter Visit Diagnoses Diagnosis Senile osteoporosis documented in this encounter Advance Directives Documents on File Type Date Recorded Patient Individual Pension Consultant Expl anation Advance Directives and Livin g Will 12/13/2016 ADVANCE DIRECTIVE Power of Treatment Technician 12/13/2016 POWER OF A TTORNEY Latest Code Status on File Code Status Date Activated Date Inactivated Comments Full Code 11/16/2020 3:04 PM 11/17/2020 4:16 PM This order reflects the patients wishes and were consensually agreed upon. Care Teams Cleat Thrower Relationship Specialty Start Date End Date Andressa Bernal MD [address] [place] [address], [place] [address] PCP - General Internal Medicine 07/30/18 documented as of this encounter
--- OUTSIDE RECORDS SUMMARY | 2023-07-05 23:14 | External Medical Summary | Summary of Care ---
Author Name Unknown Organization [facility] Address [address] [place] [address] Phone [phone] Care Team Providers Care Radio Talk Show Host Name Role Phone Andressa Bernal MD Primary Care Provider [phone] Reason for Visit * Reason Comments Outpatient Testing Encounter Details Date Type Department Care Team Description 05/22/2023 Laboratory Laboratory [facility] [place] [address] [place] [address] [facility] 200 [facility] [place] [id number] S/P repair of paraesophageal hernia; Chronic cough; Gastroesophageal reflux disease with esophagitis without hemorrhage; Encounter for long-term (current) use of medications; Lipid screening; Screening for diabetes mellitus; Other abnormal glucose; Electrolyte imbalance; Hyponatremia Allergies Active Allergy Reactions Severity Noted Date [...] needed for Heartburn. Taking 6-10. 0 Active Qcmzftq-Ideljavxjf-Um tamin D 250-107-500 MG-MG-UNIT Oral Tablet Chewable [...] WEEK 135 Capsule 3 01/23/2023 Active Ipratropium [place] 0.03 % Nasal Solution (Atrovent) Administer 2 Sprays into nostril in the morning and 2 Sprays before bedtime. 90 mL 3 01/24/2023 Active Additional Information Patient taking differently:2 [place] NasalPRN, Rhinitis, Reported on 05/15/2023 Fluticasone Propionate [...] 07/02/2019 Overview: acute Hypersomnolence 09/19/2018 09/28/2020 Overview: 19-+snoring,fatigue-- nocturnal oximetry shows desaturation to 89 % with pattern of sleep disordered breathing.,Needs sleep clinic eval- pulmonary referral placed. Tinnitus, subjective, bilateral 08/02/2018 07/02/2019 Chronic rhinitis 07/30/2018 10/05/2018 documented as of this encounter (statuses as of 05/22/2023) Immunizations Name Administration Dates Next Due COVID-19 mRNA, LNP-s, No Pre serve, 2-Dose Series ([employer]) 12/19/2022,12/06/2021,05/24/2021,10/14,09/23/2020 Pneumococcal Conjugate Vacc, 13 Valent (Prevnar) [...] Laboratory Laboratory [place], Lab Scenery [address] [place] [address] 07/25/2023 Office Visit Sleep Disorders Mandy Kim CRNP [address] [facility] [address] 09/26/2023 Laboratory Laboratory [place], Lab Scenery [address] [place] [address] 11/21/2023 Laboratory [facility] [place], Lab [place]en[place] [address] [place] [address] 11/21/2023 Office Visit Rheumatology Bia Chavez CRNP [address] [place] [address] 11/28/2023 Imaging Radiology 11/28/2023 Office Visit Hematology Oncology Real Alexander MD [address] [place] [address] 01/16/2024 Office Visit Dermatology Charisma Hernandez MD 04/30/2024 Imaging Radiology 05/20/2024 Office Visit Internal Medicine Andressa Bernal MD [address] [place] [address] Pending Results Name Type Priority Associated Diagnoses [...] Electrolyte imbalance Hyponatremia 05/22/2023 12:56 PM EDT Scheduled Procedures Name Priority Associated [...] D LEVEL ONCE IN A LIFETIME-USE SMARTSET# 67413 Completed 05/04/2023, 04/26/2022 GARDASIL-HPV IMMUNIZATION SERIES Aged Out No longer eligible based on patient's age to complete this topic Hepatitis B Aged Out No longer eligi ble based on patient's age to complete this topic MENINGOCOCCAL (MENACTRA/MENVEO) Aged Out No longer eligible based on patient's age to complete this topic documented as of this encounter Medical Devices Implanted Type Area Medical Specialist Device Identifier Shelf Expiration Date Model / Serial / Lot Reflux Management System 15 - [id number] Implanted:Qty: 1 on 11/16/2020 by Jayro Oloms MD at [facility] [place] : [employer] [id number] 05/02/2023 [employer] C15 / / [id number] documented as of this encounter Visit Diagnoses [...] not elsewhere classified Hyponatremia Hyposmolality and/or hyponatremia documented in this encounter Advance Directives Documents on File Type Date Recorded Patient Co Founder & Ceo Expl anation Advance Directives and Livin g Will 12/13/2016 ADVANCE DIRECTIVE Power of Machines Technician 12/13/2016 POWER OF A TTORNEY Latest Code Status on File Code Status Date Activated Date Inactivated Comments Full Code 11/16/2020 3:04 PM 11/17/2020 4:16 PM This order reflects the patients wishes and were consensually agreed upon. Care Teams Radio Talk Show Host Relationship Specialty Start Date End Date Andressa Bernal MD [address] [place] [id number] PCP - General Internal Medicine 07/30/18 documented as of this encounter
--- OUTSIDE RECORDS SUMMARY | 2023-07-05 23:14 | External Medical Summary ---
Author Name Unknown Address Unknown Organization [id number]:[facility] [place] [address] Laboratory Report Ordering Provider Test Date Status DILEEP GIFFORD 04/25/2023 13:02:10 Final Observation Date Value Abnormality Reference (Units ) Status SYNC LEUKOCYTES IN BLOOD BY AUTOMATED COUNT 04/25/2023 13:02:10 5.45 4.00-10.80 (K/uL) Final Segs 04/25/2023 13:02:10 71.4 40.0-75.0 (%) Final Lymphs % 04/25/2023 13:02:10 19.6 18.0-42.0 (%) Final Monos 04/25/2023 13:02:10 7.7 1.0-11.0 (%) Final Eosinophils 04/25/2023 13:02:10 1.1 0.0-6.0 (%) Final Basos 04/25/2023 13:02:10 0.2 0.0-2.0 (%) Final Absolute Segs 04/25/2023 13:02:10 3.89 1.80-7.70 (K/uL) Final Lymphs, absolute 04/25/2023 13:02:10 1.07 1.00-4.80 (K/ul) Final Monos, Abs 04/25/2023 13:02:10 0.42 0.00-1.10 (K/uL) Final Eos, Abs 04/25/2023 13:02:10 0.06 0.00-0.70 (K/uL) Final Basos, Abs 04/25/2023 13:02:10 0.01 0.00-0.20 (K/uL) Final Performing Location [facility] [place] [address]
--- OUTSIDE RECORDS SUMMARY | 2023-07-05 23:14 | External Medical Summary ---
Author Name Unknown Address Unknown Organization [id number]:[facility] [place] [address] Laboratory Report Ordering Provider Test Date Status ROSLYN LACEY 05/22/2023 12:56:01 Final Observation Date Value Abnormality Reference (Units ) Status Magnesium 05/22/2023 12:56:01 1.8 1.5-2.6 (m g/dL) Final Performing Location [facility] [place] [address]
--- OUTSIDE RECORDS SUMMARY | 2023-07-05 23:14 | External Medical Summary ---
Author Name Unknown Address Unknown Organization K09:[facility] [place] [address] Laboratory Report Ordering Provider Test Date Status DILEEP GIFFORD 04/25/2023 13:02:10 Final Observation Date Value Abnormality Reference (Units ) Status WBC, Total 04/25/2023 13:02:10 5.45 4.00-10.8 0 (K/uL) Final RBC 04/25/2023 13:02:10 4.13 3.85-5.15 (M/uL) Final Hemoglobin 04/25/2023 13:02:10 13.9 12.0-15.3 (g/dL) Final HCT 04/25/2023 13:02:10 42.2 36.0-45.2 (%) Final MCV 04/25/2023 13:02:10 102.2 81.5-97.5 (fL) Final MCH 04/25/2023 13:02:10 33.7 27.0-34.0 (pg) Final MCHC 04/25/2023 13:02:10 32.9 32.0-36.0 (g/dL) Final RDW 04/25/2023 13:02:10 14.0 11.5-15.5 (%) Final Platelets 04/25/2023 13:02:10 368 140-400 (K /uL) Final MPV 04/25/2023 13:02:10 9.2 6.6-11.1 ( fL) Final Performing Location [facility] [place] [address]
--- OUTSIDE RECORDS SUMMARY | 2023-07-05 23:14 | External Medical Summary | Summary of Care ---
Author Name Unknown Organization [facility] Address [address] [place] [address] Phone [phone] Care Team Providers Care Book Sewing Machine Operator Name Role Phone Andressa Bernal MD Primary Care Provider [phone] Reason for Visit * Reason Onset Date Comments Medication Administration 05/19/2023 Prolia * Precert (Within 30 days (routine)) - Authorized Specialty Diagnoses / Procedures Referred By Contac t Referred To Contact Diagnoses Bilateral primary osteoarthritis of first carpometacarpal joints Procedures DENOSUMAB 1MG, INJ Moody Bush MD [address] [place] [address] Moody Bush MD [address] [place] [id number] Referral ID Status Reason Start Date Expiration Date V isits Requested Visits Authorized [id number] Authorized Precert 05/16/2023 05/16/[phone] Encounter Details Date Type Department Care Team Description 05/19/2023 Nurse Only Rheumatology [facility] [place] [address] [place] [address] [place] [address] Pf, Nurse Rheum [address] [facility] [place] [address] Medication Administration (Prolia) Allergies Active Allergy Reactions Severity Noted Date Comments Adhesive Tape Rash 04/03/2019 Molds & Smuts Cough 07/30/2018 documented as of this encounter (statuses as of 05/19/2023) Medications Medication Sig Dispensed Refills Start Date End Date Status Multiple Vitamin (MULTI-DAY) TabletIndications:Men opause Take 1 Tab by mouth daily. 0 Active Tums 500 MG Oral Tablet Chewable Take 2 Tablets by mouth every 4 hours as needed for Heartburn. Taking 6-10. 0 Active Wqmzjxm-Vgcdiiejtz-Su tamin D 250-107-500 MG-MG-UNIT Oral Tablet Chewable [...] WEEK 135 Capsule 3 01/23/2023 Active Ipratropium [place] 0.03 % Nasal Solution (Atrovent) Administer 2 Sprays into nostril in the morning and 2 Sprays before bedtime. 90 mL 3 01/24/2023 Active Additional Information Patient taking differently:2 [place] NasalPRN, Rhinitis, Reported on 05/15/2023 Fluticasone Propionate 50 MCG/ACT Nasal Suspension (Flonase) ADMINISTER 2 SPRAYS INTO EACH NOSTRIL EVERY DAY 48 mL 3 01/24/2023 Active Hospital, Clinic, or Other Facility Administered Medication Ordered Dose Route Frequency Start Date End Date Status Denosumab (Prolia) subcut inj 60 mgIndications:Senile osteoporosis 60 mg SC ONCE 05/19/2023 05/19/2023 Ended documented as of this encounter (statuses as of 05/19/2023) Active Problems Problem Noted Date Senile osteoporosis [...] as of this encounter (statuses as of 05/19/2023) Resolved Problems Problem Noted Date Resolved Date Rhinitis, nonallergic 10/05/2018 07/02/2019 Overview: acute Hypersomnolence 09/19/2018 09/28/2020 Overview: 08/07-+snoring,fatigue-- nocturnal oximetry shows desaturation to 89 % with pattern of sleep disordered breathing.,Needs sleep clinic eval- pulmonary referral placed. Tinnitus, subjective, bilateral 08/02/2018 07/02/2019 Chronic rhinitis 07/30/2018 10/05/2018 documented as of this encounter (statuses as of 05/19/2023) Immunizations Name Administration Dates Next Due COVID-19 mRNA, LNP-s, No Pre serve, 2-Dose Series ([employer]) 12/19/2022,12/06/2021,05/24/2021,10/14,09/23/2020 Pneumococcal Conjugate Vacc, 13 Valent (Prevnar) [...] Sign Reading Time Taken Comments Blood Pressure - - Pulse - - Temperature 36.7 C (98 F) 05/19/2023 2:33 PM EDT Respiratory Rate - - Oxygen Saturation - - Inhaled Oxygen Concentration - - Weight - - Height - - Body Mass Index - - documented in this encounter Progress Notes * Kiara Rosa LPN - 05/19/2023 2:38 PM EDT Karen Alina presents today for administration of Prolia. She understands the benefits and risks of this treatment. An educational pamphlet was given to the patient. Prolia 60 mg was administered subcutaneously. The patient tolerated the procedure without problems. She will return in 6 months for the next injection and evaluation. Kiara Rosa LPN documented in this encounter Plan of Treatment Upcoming Encounters Date Type Specialty Care Team Description 05/22/2023 Laboratory [facility] [place], Lab Scenery [address] [place] [address] 07/24/2023 Laboratory [facility] [place], Lab [place] [address] [place] [address] 07/25/2023 Office Visit Sleep Disorders Mandy Kim CRNP [address] [place] [address] 09/26/2023 Laboratory Laboratory [place], Lab Scenery [address] [place] [address] 11/21/2023 Laboratory Laboratory [place], Lab Scenery [address] [place] [address] 11/21/2023 Office Visit Rheumatology Bia Chavez CRNP [address] [facility] [place] [address] 11/28/2023 Imaging Radiology 11/28/2023 Office Visit Hematology Oncology Real Alexander MD [address] [place] [address] 01/16/2024 Office Visit Dermatology Charisma Hernandez MD 04/30/2024 Imaging Radiology 05/20/2024 Office Visit Internal Medicine Andressa Bernal MD [address] [place] [address] Scheduled Procedures Name Priority Associated Diagnoses Date/Ti [...] D LEVEL ONCE IN A LIFETIME-USE SMARTSET# [id number] Completed 05/04/2023, 04/26/2022 GARDASIL-HPV IMMUNIZATION SERIES Aged Out No longer eligible based on patient's age to complete this topic Hepatitis B Aged Out No longer eligi ble based on patient's age to complete this topic MENINGOCOCCAL (MENACTRA/MENVEO) Aged Out No longer eligible based on patient's age to complete this topic documented as of this encounter Medical Devices Implanted Type Area Traffic Observer Device Identifier Shelf Expiration Date Model / Serial / Lot Reflux Management System 15 - [id number] Implanted:Qty: 1 on 11/16/2020 by Jayro Olmos MD at OR [facility] [place] : [employer] [id number] 05/02/2023 [facility] C15 / / [id number] documented as of this encounter Visit Diagnoses Diagnosis Senile osteoporosis- Primary documented in this encounter Administered Medications Inactive Administered Medications - up to 3 most recent administrations Medication Order MAR Action Action Date Dose Rate Site Denosumab (Prolia) subcut inj 60 mg 60 mg, Subcutaneous, ONCE, On Mon05/19/23 at 1530, For 1 dose Given 05/19/2023 2:22 PM EDT 60 mg Arm L eft Upper documented in this encounter Advance Directives Documents on File Type Date Recorded Patient Operations Manager Station Expl anation Advance Directives and Mireya hamilton Will 12/13/2016 ADVANCE DIRECTIVE Power of Mmd Unit Teacher 12/13/2016 POWER OF A TTORNEY Latest Code Status on File Code Status Date Activated Date Inactivated Comments Full Code 11/16/2020 3:04 PM 11/17/2020 4:16 PM This order reflects the patients wishes and were consensually agreed upon. Care Teams Book Sewing Machine Operator Relationship Specialty Start Date End Date Andressa Bernal MD [address] [place] [address] PCP - General Internal Medicine 07/30/18 documented as of this encounter
--- OUTSIDE RECORDS SUMMARY | 2023-07-05 23:14 | External Medical Summary | Summary of Care ---
Author Name Unknown Organization [facility] Address [address] [place] [facility] [address] Phone [phone] Care Team Providers Care Investment Specialist Name Role Phone Andressa Bernal MD Primary Care Provider [phone] Reason for Visit * Reason Comments Outpatient Testing Encounter Details Date Type Department Care Team Description 04/25/2023 Laboratory Laboratory [facility] Suzette Sullivan [address] [place] [address] [facility] [address] [facility] [place] [address] Essential thrombocytosis (HCC); History of right breast cancer; Deep vein thrombosis (DVT) of proximal vein of left lower extremity, unspecified chronicity (HCC); Localized edema Allergies Active Allergy Reactions Severity Noted Date Comments Adhesive Tape Rash 04/03/2019 Molds & Smuts Cough 07/30/2018 documented as of this encounter (statuses as of 04/25/2023) Medications Medication Sig Dispensed Refills Start Date End Date Status Multiple Vitamin (MULTI-DAY) TabletIndications:Men opause Take 1 Tab by mouth daily. 0 Active Tums 500 MG Oral Tablet Chewable Take 2 Tablets by mouth every 4 hours as needed for Heartburn. Taking 6-10. 0 Active Mnhrhfm-Xioinfrzvl-Rg tamin D 250-107-500 MG-MG-UNIT Oral Tablet Chewable [...] WEEK 135 Capsule 3 01/23/2023 Active Ipratropium Sandpoint 0.03 % Nasal Solution (Atrovent) Administer 2 Sprays into nostril in the morning and 2 Sprays before bedtime. 90 mL 3 01/24/2023 Active Fluticasone Propionate 50 MCG/ACT Nasal Suspension (Flonase) ADMINISTER 2 SPRAYS INTO EACH NOSTRIL EVERY DAY 48 mL 3 01/24/2023 Active documented as of this encounter (statuses as of 04/25/2023) Active Problems Problem Noted Date Senile osteoporosis [...] as of this encounter (statuses as of 04/25/2023) Resolved Problems Problem Noted Date Resolved Date Rhinitis, nonallergic 10/05/2018 07/02/2019 Overview: acute Hypersomnolence 09/19/2018 09/28/2020 Overview: 08/07-+snoring,fatigue-- nocturnal oximetry shows desaturation to 89 % with pattern of sleep disordered breathing.,Needs sleep clinic eval- pulmonary referral placed. Tinnitus, subjective, bilateral 08/02/2018 07/02/2019 Chronic rhinitis 07/30/2018 10/05/2018 documented as of this encounter (statuses as of 04/25/2023) Immunizations Name Administration Dates Next Due COVID-19 mRNA, LNP-s, No Pre serve, 2-Dose Series (Astonish Results) 12/19/2022,12/06/2021,05/24/2021,10/14,09/23/2020 Pneumococcal Conjugate Vacc, 13 Valent (Prevnar) [...] Visit Hematology Oncology Real Alexander MD [address] [place] [address] 05/15/2023 Office Visit Internal Medicine Andressa Bernal MD [address] [facility] [place] [address] 07/25/2023 Office Visit Sleep Disorders Mandy Kim CRNP [address] [place] [address] 01/16/2024 Office Visit Dermatology Charisma Hernandez MD Pending Results Name Type Priority Associated Diagnoses Date /Time COMPREHENSIVE METABOLIC PANEL Lab Routine Essential thrombocytosis (HCC) History of right breast cancer Deep vein thrombosis (DVT) of proximal vein of left lower extremity, unspecified chronicity (HCC) Localized edema 04/25/2023 1:02 PM EDT Scheduled Procedures Name Priority Associated Diagnoses Date/Ti me COLONOSCOPY FLEXIBLE PROXIMAL DIAGNOSTIC Recall History of colon polyps Health Maintenance Due Date Last Done Comments Depression Screening, Annual for Pts 12 and Over 04/06/2021 04/06/2020 *BISPHONATE OR OTHER ACCEPTABLE MEDICATION [...] D LEVEL ONCE IN A LIFETIME-USE SMARTSET# [id number] Completed 04/26/2022 COVID-19 Vaccine Completed 12/19/2022, 06/2022, [...] this encounter Medical Devices Implanted Type Area Shirt Creaser Device Identifier Shelf Expiration Date Model / Serial / Lot Reflux Management System 15 - [id number] Implanted:Qty: 1 on 11/16/2020 by Jayro Olmos [place] [facility] [place] [employer] [id number] 05/02/2023 [facility] C15 / / [id number] documented as of this encounter Procedures Procedure Name Priority Date/Time Associated Diagnosis Comments DIFFERENTIAL, AUTOMATED Routine 04/25/2023 1:02 PM EDT Essential thrombocytosis (HCC) History of right breast cancer Deep vein thrombosis (DVT) of proximal vein of left lower extremity, unspecified chronicity (HCC) Localized edema CBC WITH WBC DIFFERENTIAL Routine 04/25/2023 1:02 PM EDT Essential thrombocytosis (HCC) History of right breast cancer Deep vein thrombosis (DVT) of proximal vein of left lower extremity, unspecified chronicity (HCC) Localized edema CBC Routine 04/25/2023 1:02 PM EDT Essential thrombocytosis (HCC) History of right breast cancer Deep vein thrombosis (DVT) of proximal vein of left lower extremity, unspecified chronicity (HCC) Localized edema documented in this encounter Results * DIFFERENTIAL, AUTOMATED (04/25/2023 1:02 PM EDT) WBC 5.45 4.00 - 10.80 K/uL 04/25/2023 1:06 PM EDT [facility] 56-02 Neutrophils % 71.4 40.0 - 75.0 % 04/25/2023 1:06 PM EDT [facility] 56-02 Lymphocytes % 19.6 18.0 - 42.0 % 04/25/2023 1:06 PM EDT [facility] [place] 56-02 Monocytes % 7.7 1.0 - 11.0 % 04/25/2023 1:06 PM EDT [facility] [place] [place] 56-02 Eosinophils % 1.1 0.0 - 6.0 % 04/25/2023 1:06 PM EDT [facility] [place] [place] 56-02 Basophils % 0.2 0.0 - 2.0 % 04/25/2023 1:06 PM EDT [facility] [place] [place] 56-02 Absolute Neutrophils 3.89 1.80 - 7.70 K/uL 04/25/2023 1:06 PM EDT [facility] [place] [place] 56-02 Absolute Lymphocytes 1.07 1.00 - 4.80 K/ul 04/25/2023 1:06 PM EDT [facility] [place] [place] 56-02 Absolute Monocytes 0.42 0.00 - 1.10 K/uL 04/25/2023 1:06 PM EDT [facility] [place] [place] 56-02 Absolute Eosinophils 0.06 0.00 - 0.70 K/uL 04/25/2023 1:06 PM EDT [facility] [place] [place] 56-02 Absolute Basophils 0.01 0.00 - 0.20 K/uL 04/25/2023 1:06 PM EDT [facility] 56-02 Blood Venous blood specimen / Unknown Venipuncture / Unknown 04/25/2023 1:02 PM EDT 04/25/2023 1:03 PM EDT Real Alexander MD LAB BLOOD ORDERA BLES [facility] 56 [address] [facility] [place] [address] * CBC (04/25/2023 1:02 PM EDT) WBC 5.45 4.00 - 10.80 K/uL 04/25/2023 1:06 PM EDT [facility] 56 RBC 4.13 3.85 - 5.15 M/uL 04/25/2023 1:06 PM EDT [address] HGB 13.9 12.0 - 15.3 g/dL 04/25/2023 1:06 PM EDT [facility] 56 HCT 42.2 36.0 - 45.2 % 04/25/2023 1:06 PM EDT [address] MCV 102.2 81.5 - 97.5 fL 04/25/2023 1:06 PM EDT [address] MCH 33.7 27.0 - 34.0 pg 04/25/2023 1:06 PM EDT [facility] 56 MCHC 32.9 32.0 - 36.0 g/dL 04/25/2023 1:06 PM EDT [facility] 56 RDW 14.0 11.5 - 15.5 % 04/25/2023 1:06 PM EDT [facility] 56 PLT 368 140 - 400 K/uL 04/25/2023 1:06 PM EDT [facility] 56 MPV 9.2 6.6 - 11.1 fL 04/25/2023 1:06 PM EDT [facility] 5602 Blood Venous blood specimen / Unknown Venipuncture / Unknown 04/25/2023 1:02 PM EDT 04/25/2023 1:03 PM EDT Real Alexander MD LAB BLOOD ORDERA BLES [facility] [address] [facility] [address] documented in this encounter Visit Diagnoses Diagnosis Essential thrombocytosis (HCC) Essential thrombocythemia History of right breast cancer Deep vein thrombosis (DVT) of proximal vein of left lower extremity, unspecified chronicity (HCC) Localized edema Edema documented in this encounter Advance Directives Documents on File Type Date Recorded 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 Care Teams Investment Specialist Relationship Specialty Start Date End Date Andressa Bernal MD [address] [facility] [place] [address] PCP - General Internal Medicine 07/30/18 documented as of this encounter
--- OUTSIDE RECORDS SUMMARY | 2023-07-05 23:14 | External Medical Summary | Summary of Care ---
Author Name Unknown Organization [facility] Address [address] [place] [address] Phone [phone] Care Team Providers Care Kennel Operator Name Role Phone Andressa Bernal MD Primary Care Provider [phone] Reason for Visit * Reason Onset Date Comments Follow Up 6m Medication Administration 05/02/2023 Flu an d/or Pneumo Inj Encounter Details Date Type Department Care Team Description 05/02/2023 Office Visit Hematology/Oncology [facility] [place] [address] [facility] [place] [address] Real [facility] [address] Essential thrombocytosis (HCC)*; Need for prophylactic vaccination and inoculation against influenza Allergies Active Allergy Reactions Severity Noted Date Comments Adhesive Tape Rash 04/03/2019 Molds & Smuts Cough 07/30/2018 documented as of this encounter (statuses as of 05/02/2023) Medications Medication Sig Dispensed Refills Start Date End Date Status Multiple Vitamin (MULTI-DAY) TabletIndications:Me nopause Take 1 Tab by mouth daily. 0 Active Tums 500 MG Oral Tablet Chewable Take 2 Tablets by mouth every 4 hours as needed for Heartburn. Taking 6-10. 0 Active Cqgmnwd-Vljzukbycd-Q itamin D 250-107-500 MG-MG-UNIT Oral Tablet Chewable - 1000 mg ca/d 1 Tab 0 0 Active guaiFENesin ER 600 MG Oral Tablet [...] mouth daily as needed for Allergies. 0 2 Active Dicyclomine HCl 10 MG Oral Capsule (Bentyl)Indications: S/P repair of paraesophageal hernia,Abdominal cramping Take by mouth 1 Capsule in the morning AND 1 Capsule before bedtime. 180 Capsule 3 2 Active Eliquis 5 MG Oral Tablet (Apixaban)Indication s:Acute deep vein thrombosis (DVT) of left lower extremity, unspecified vein (HCC),Essential (hemorrhagic) thrombocythemia (HCC) TAKE 1 TABLET BY MOUTH EVERY DAY IN THE MORNING AND BEFORE BEDTIME 180 Tablet 2 3 Active metroNIDAZOLE 0.75 % External Cream (MetroCream)Indicati ons:Rosacea Apply topically to affected area 2 times a day. apply to affected area. 45 g 5 3 Active Omeprazole 20 MG Oral Capsule Delayed Release (PriLOSEC) Take 1 Capsule by mouth in the morning. 90 Capsule 3 3 Active Hydroxyurea 500 MG Oral Capsule (Hydrea)Indications: Essential (hemorrhagic) thrombocythemia (HCC) TAKE 1 CAPSULE BY MOUTH ALTERNATING WITH 2 CAPSULES BY MOUTH EVERY OTHER DAY TAKING 6 DAYS A WEEK 135 Capsule 3 3 Active Ipratropium [place] 0.03 % Nasal Solution (Atrovent) Administer 2 Sprays into nostril in the morning and 2 Sprays before bedtime. 90 mL 3 3 Active Fluticasone Propionate 50 MCG/ACT Nasal Suspension (Flonase) ADMINISTER 2 SPRAYS INTO EACH NOSTRIL EVERY DAY 48 mL 3 3 Active Atropine Sulfate 1 % Ophthalmic Solution INSTILL 1 DROP INTO RIGHT EYE TWICE A DAY 0 3 05/02/20 23 Discontinu ed(Medicat ion List Clean Up) prednisoLONE Acetate 1 % Ophthalmic Suspension (Pred Forte) 1 Drop in the morning and 1 Drop at noon and 1 Drop in the evening and 1 Drop before bedtime. 0 3 05/02/20 23 Discontinu ed(Medicat ion List Clean Up) documented as of this encounter (statuses as of 05/02/2023) Active Problems Problem Noted Date Senile osteoporosis [...] as of this encounter (statuses as of 05/02/2023) Resolved Problems Problem Noted Date Resolved Date Rhinitis, nonallergic 10/05/2018 07/02/2019 Overview: acute Hypersomnolence 09/19/2018 09/28/2020 Overview: 08/07-+snoring,fatigue-- nocturnal oximetry shows desaturation to 89 % with pattern of sleep disordered breathing.,Needs sleep clinic eval- pulmonary referral placed. Tinnitus, subjective, bilateral 08/02/2018 07/02/2019 Chronic rhinitis 07/30/2018 10/05/2018 documented as of this encounter (statuses as of 05/02/2023) Immunizations Name Administration Dates Next Due COVID-19 mRNA, LNP-s, No Pre serve, 2-Dose Series (Projjix) 12/19/2022,12/06/2021,05/24/2021,10/14,09/23/2020 Pneumococcal Conjugate Vacc, 13 Valent (Prevnar) [...] 10 Q uit: 07/30/1974 Smokeless Tobacco: Never Tobacco Cessation:Counseling Given: Not Answered Comments:Pt was a social smoker. Alcohol Use Standard Drinks/Week Comments Yes 0 [...] Sign Reading Time Taken Comments Blood Pressure 124/75 05/02/2023 2:30 PM EDT Pulse 82 05/02/2023 2:30 PM EDT Temperature 36.8 C (98.3 F) 05/02/2023 2:30 PM ED T Respiratory Rate 16 05/02/2023 2:30 PM EDT Oxygen Saturation 92% 05/02/2023 2:30 PM EDT Inhaled Oxygen Concentration - - Weight 56.1 kg (123 lb 11.2 oz) 05/02/2023 2:30 PM EDT Height - - Body Mass Index 22.63 01/24/2023 9:55 AM EDT documented in this encounter Progress Notes * Real Alexander MD - 05/02/2023 3:12 PM EDT Outpatient Consult Note Data Source: Patient, Epic record. Data Source: Patient, Epic record. 05/02/2023 3:12 PM Karen Gillgwendolynjannet [id number] 77 year old Patient Encounter: HEMATOLOGY/ONCOLOGY [facility] Cancer Diagnosis: Essential thrombocytosis was diagnosed in 2011. DVT left lower extremity Current Treatment: Hydroxyurea 500 mg alternating with 1000 on every other day. Eliquis 11/2021 Previous Treatment: None Oncologic History : 77-year-old female was diagnosed of essential thrombocytosis when she presented with a high platelet counts. She was seen by Dr. Lockhart and started on hydroxyurea 500 mg once a day. She had episode of cellulitis sometime in February of 2012 and was found have a low platelet count so at that time the hydroxyurea dose was changed to 500mg 4 times a week. Subsequently in February of 2018 it was increased to 6 days per week and currently she is taking hydroxyurea 500 mg once a day. Her platelet count in 2011 was 703. No further information about the workup is available at this point. Patient also has a history of breast cancer was diagnosed in 1993. Underwent a lumpectomy followed by radiation therapy and adjuvant chemotherapy CM. According to the patient the tumor was negative for estrogen/progesterone receptor. Patient denies any chest pain, shortness of breath, palpitation, change in the bowel habits, easy bruising or bleeding, hematuria. She has episodes of occasional headache for many years started even before 2011 which has not change. Her appetite is good and there is no history of weight loss or burning or flushing of the skin. JAK2 QUANTITATIVE 24.74High JAK2 INTERPRETATION POSITIV Interval History: She continued taking hydroxyurea 500 mg alternating with 1000 mg on every other basis for 6 days a week. She is good performance status without any new symptoms complain. Patient denies any headache,dizziness, blurred vision, chest pain, shortness breath palpitation abdominal pain or distention, bleeding, bruising, nausea, vomiting, fever, night sweats, weight loss, hematuria, hematochezia. She also continued taking Eliquis for DVT. LABS/IMAGING: Results for orders placed or performed in visit on 04/25/23 COMPREHENSIVE METABOLIC PANEL Result Value Ref Range BUN 14 6 - 20 mg/dL Creatinine 0.8 0.5 - 1.0 mg/dL Estimated Glomerular Filtration Rate 73 >=60 mL/min Sodium 135 135 - 146 mmol/L Potassium 5.2 (H) 3.5 - 5.1 mmol/L Chloride 98 98 - 107 mmol/L CO2 26 22 - 32 mmol/L Anion Gap 11 7 - 15 mmol/L Glucose 104 70 - 120 mg/dL Albumin 4.1 3.8 - 5.0 g/dL AST 19 10 - 35 U/L Alkaline Phosphatase 86 35 - 130 U/L Bilirubin, Total 0.4 <=1.2 mg/dL Calcium 9.0 8.4 - 10.2 mg/dL Protein 6.2 6.0 - 8.3 g/dL ALT 19 10 - 35 U/L CBC Result Value Ref Range WBC 5.45 4.00 - 10.80 K/uL RBC 4.13 3.85 - 5.15 M/uL HGB 13.9 12.0 - 15.3 g/dL HCT 42.2 36.0 - 45.2 % MCV 102.2 81.5 - 97.5 fL MCH 33.7 27.0 - 34.0 pg MCHC 32.9 32.0 - 36.0 g/dL RDW 14.0 11.5 - 15.5 % PLT 368 140 - 400 K/uL MPV 9.2 6.6 - 11.1 fL DIFFERENTIAL, AUTOMATED Result Value Ref Range WBC 5.45 4.00 - 10.80 K/uL Neutrophils % 71.4 40.0 - 75.0 % Lymphocytes % 19.6 18.0 - 42.0 % Monocytes % 7.7 1.0 - 11.0 % Eosinophils % 1.1 0.0 - 6.0 % Basophils % 0.2 0.0 - 2.0 % Absolute Neutrophils 3.89 1.80 - 7.70 K/uL Absolute Lymphocytes 1.07 1.00 - 4.80 K/ul Absolute Monocytes 0.42 0.00 - 1.10 K/uL Absolute Eosinophils 0.06 0.00 - 0.70 K/uL Absolute Basophils 0.01 0.00 - 0.20 K/uL All her blood tests including platelet counts and electrolytes are within normal limit with normal hemoglobin and platelet counts. REVIEW OF SYSTEMS: General: No Fever, chills, night sweats, or weight loss. HEENT: No change in visual acuity, blurred or double vision. No epistaxis, facial pain, nasal discharge or change in hearing. Denies dysphagia, no muscosal ulceration, or sores noted. Cardiovascular: No chest pain, MEDINA, or palpitations Respiratory: No shortness of breath, cough, hemoptysis, or pleuritic chest pain Gastrointestinal: No abdominal pain, nausea, vomiting, diarrhea, rectal pain or bleeding Genitourinary: Denies Hematuria or dysuria Musculoskeletal: No bone pain Skin: No skin rash or lesions noted Neurologic: No numbness, weakness, neuropathic pain or change in cognitive function Psychiatric: No vegetative signs of depression Endocrine: No symptoms of hypothyroidism or hyperglycemia Hematologic: No bleeding or lymph nodes noted As mentioned above, all of the systems were reviewed in full and are unremarkable. Past Medical History: Diagnosis Date Breast cancer (HCC) 1993 right breast ca Chronic cough 09/06/2018 Chronic rhinitis 07/30/2018 Essential thrombocytosis (HCC) 07/30/2018 Gastroesophageal reflux disease without esophagitis 07/30/2018 Hiatal hernia 07/30/[address] 07/06/17 History of right breast cancer 07/30/20181993, [place] -03/07 [place] History of skin cancer 10/01/2018 Hypersomnolence 09/19/201808/07-+snoring,fatigue-- nocturnal oximetry shows desaturation to 89 % with pattern of sleep disordered breathing.,Needs sleep clinic eval- pulmonary referral placed. Mixed stress and urge urinary incontinence 07/30/2018 Rhinitis, nonallergic 10/05/2018 acute Sleep apnea, obstructive Tinnitus, subjective, bilateral 08/02/2018 Tinnitus, subjective, bilateral 08/02/2018 Current Outpatient Medications Medication Sig Dispense Refill Multiple Vitamin (MULTI-DAY) Tablet Take 1 Tab by mouth daily. Gifghnu-Hhflqmjixe-Payegqr D 250-107-500 MG-MG-UNIT Oral Tablet Chewable - 1000 mg ca/d 1 Tab 0 Fexofenadine HCl 180 MG Oral Tablet Take 1 Tablet by mouth daily as needed for Allergies. Eliquis 5 MG Oral Tablet (Apixaban) TAKE 1 TABLET BY MOUTH EVERY DAY IN THE MORNING AND BEFORE BEDTIME 180 Tablet 2 Omeprazole 20 MG Oral Capsule Delayed Release (PriLOSEC) Take 1 Capsule by mouth in the morning. 90Capsule 3 Tums 500 MG Oral Tablet Chewable Take 2 Tablets by mouth every 4 hours as needed for Heartburn. Taking 6-10. guaiFENesin ER 600 MG Oral Tablet Extended Release 12 Hour Take 1 Tablet by mouth in the morning and 1 Tablet before bedtime. Simethicone 180 MG Oral Capsule Take by mouth 2 times a day. CPAP every night at bedtime. Dicyclomine HCl 10 MG Oral Capsule (Bentyl) Take by mouth 1 Capsule in the morning AND 1 Capsule before bedtime. 180 Capsule 3 metroNIDAZOLE 0.75 % External Cream (MetroCream) Apply topically to affected area 2 times a day. apply to affected area. 45 g 5 Hydroxyurea 500 MG Oral Capsule (Hydrea) TAKE 1 CAPSULE BY MOUTH ALTERNATING WITH 2 CAPSULES BY MOUTH EVERY OTHER DAY TAKING 6 DAYS A WEEK 135 Capsule 3 Ipratropium [place] 0.03 % Nasal Solution (Atrovent) Administer 2 Sprays into nostril in the morning and 2 Sprays before bedtime. 90 mL 3 Fluticasone Propionate 50 MCG/ACT Nasal Suspension (Flonase) ADMINISTER 2 SPRAYS INTO EACH NOSTRIL EVERY DAY 48 mL 3 No current facility-administered medications for this visit. Social History Tobacco Use Smoking status: Former Packs/day: 0.10 Years: 10.00 Pack years: 1.00 Types: Cigarettes Quit date: 07/30/1974 Years since quittin.7 Smokeless tobacco: Never Tobacco comments: Pt was a social smoker. Vaping Use Vaping Use: Never used Substance Use Topics Alcohol use: Yes Comment: social Drug use: No Review of patient's allergies indicates: Allergen Reactions Adhesive Tape Rash Molds & Smuts Cough PHYSICAL EXAMINATION: General Appearance: Healthy appearing patient in no acute distress BP 124/75 (BP Site: Left Arm, BP Position: Sitting, BP Cuff Size: Regular) | Pulse 82 | Temp 36.8 C (98.3 F) (Tympanic) | Resp 16 | Wt 56.1 kg (123 lb 11.2 oz) | SpO2 92% | BMI 22.63 kg/m | BSA1.57 m Vitals reviewed. HEENT: No oral or pharyngeal masses, ulceration or thrush noted, no sinus tenderness. Neck is supple with no thyromegaly or JVD noted. Lymph Nodes: No lymphadenopathy noted in the occipital, pre and post auricular, cervical, supra andinfraclavicular, axillary, epitrochlear, inguinal, and popliteal region. Lungs/Thorax: Clear to auscultation, no accessory muscles of respiration being used. Heart: Regular rate and rhythm, normal S1, S2 Abdomen: Soft, nontender, bowel sounds present, no appreciable hepatosplenomegaly, no palpable masses Extremeties: Good pulses bilaterally, no peripheral edema. Skin: Normal skin tone with no rash, petechiae, ecchymosis noted. Musculoskeletal: No pain on palpation over bony prominence, no edema, no evidence of gout, no jointor bony deformity ASSESSMENT: 77-year-old female with history of essential thrombocytosis currently on hydroxyurea. She was positive for JAK2 mutation. She is taking hydroxyurea 500 mg alternating 1000 mg on every other day basisfor 6 days a week. She also has a history of left lower extremity DVT and currently on Eliquis. She is in good performance status and clinically doing well. She is no side effects toxicity from the Eliquis or hydroxyurea. All her blood counts are in acceptable range. Discussed with patient about the diagnosis and reviewed all the available blood test result with her. PLAN: Continue current dose of hydroxyurea. I will also change her blood test to every other month. She will also continue Eliquis. She will return clinic for follow- up in 6 months with CBC and CMP. The patient voiced understanding of all of the above. All questions and concerns were addressed in an apparently satisfactory manner. Real Alexander MD (This note was completed using the dictation program Fluency Direct. As such, there may be misspellings, word substitutions, or other variations that should not change the essence of the clinical content of this encounter note. If there is need for further clarification, please direct questions to me.) * Mercedes Canada LPN - 05/02/2023 3:00 PM EDT PRE - ADMINISTRATION DOCUMENTATION Are you experiencing any cold symptoms or fever? No Have you had Guillain-Splendora Syndrome (an illness that causes paralysis) within the last 6 weeks? No Have you had the flu shot in the past? YES Have you ever had a reaction to the flu shot? NO Mercedes Canada LPN, 05/02/2023 3:00 PM Immunization Administration Documentation Time Out Procedure Performed: Yes Patient Identified (Ask Name/Date of ): Yes Does the patient have a fever greater than 101 degrees today? No Patient allergic to latex? No VFC Stock: No Immunization(s) verified: Yes, Immunization Name: Flu, VIS Sheet(s) given: Yes Verified Side and Site: Yes Verified Shot(s) with Parent(s)/Patient: Yes documented in this encounter Nursing Notes * Ronit L Keene, WATER QUALITY ANALYST - 05/02/2023 2:30 PM EDT Patient identifed by name and birthdate Do you have any concerns about pain management for today's visit? Yes. Patient instructed to discuss pain concerns with provider during the visit today Living Will or Advance Directive for Health Care as noted on the problem list. [facility] is a way you can talk to your provider on line through e-mail. Would you like to sign up? I can activate it for you? ALREADY ACTIVE Filed Vitals: 05/02/23 1430 BP: 124/75 Pulse: 82 Resp: 16 Temp: 36.8 C (98.3 F) TempSrc: Tympanic SpO2: 92% Weight: 56.1 kg (123 lb 11.2 oz) Patient was instructed to not get up on the exam table/exam chair until directed and assisted by their provider; patient is to remain seated in the chair/ wheelchair/ exam table/ exam chair for fall prevention and safety reasons. Patient is aware to have assistance to step down off exam table/exam chair with personnel. Patient voiced full comprehension of instructions. documented in this encounter Plan of Treatment Upcoming Encounters Date Type Specialty Care Team Description 05/04/2023 Laboratory Laboratory Nay [place] [address] [place] [id number] 05/15/2023 Office Visit Internal Medicine Andressa Bernal MD 200 [facility] [place] [address] 07/25/2023 Office Visit Sleep Disorders Mandy Kim CRNP [address] [place] [address] 11/28/2023 Imaging Radiology 11/28/2023 Office Visit Hematology Oncology Real Alexander MD [address] [place] [address] 01/16/2024 [place] 04/30/2024 Imaging Radiology Scheduled Orders Name Type Priority Associated Diagnoses Orde r Schedule CBC WITH WBC DIFFERENTIAL Lab Routine Essential thrombocytosis (HCC) Expected: 10/30/2023, Expires: 06/01/2024 COMPREHENSIVE METABOLIC PANEL Lab Routine Essential thrombocytosis (HCC) Expected: 10/30/2023, Expires: 06/01/2024 Scheduled Procedures Name Priority Associated Diagnoses Date/Ti [...] D LEVEL ONCE IN A LIFETIME-USE SMARTSET# [id number] Completed 04/26/2022 COVID-19 Vaccine Completed 12/19/2022, 06/2022, [...] this encounter Medical Devices Implanted Type Area Director Perioperative Device Identifier Shelf Expiration Date Model / Serial / Lot Reflux Management System 15 - [id number] Implanted:Qty: 1 on 11/16/2020 by Jayro Olmos MD at OR [facility] [place] : [employer] [id number] 05/02/2023 M C15 / / [id number] documented as of this encounter Visit Diagnoses Diagnosis Essential thrombocytosis (HCC)- Primary Essential thrombocythemia Need for prophylactic vaccination and inoculation against influenza documented in this encounter Advance Directives Documents on File Type Date Recorded Patient Hand Suture Winder Expl anation Advance Directives and Livgama g Will 12/13/2016 ADVANCE DIRECTIVE Power of Heading Matcher And Assembler 12/13/2016 POWER OF A TTORNEY Latest Code Status on File Code Status Date Activated Date Inactivated Comments Full Code 11/16/2020 3:04 PM 11/17/2020 4:16 PM This order reflects the patients wishes and were consensually agreed upon. Care Teams Kennel Operator Relationship Specialty Start Date End Date Andressa Bernal MD [address] [place] [id number] PCP - General Internal Medicine 07/30/18 documented as of this encounter"
--- OUTSIDE RECORDS SUMMARY | 2023-07-05 23:14 | External Medical Summary ---
Author Name Unknown Address Unknown Organization [id number]:[facility] [place] - [address] [facility] [place] [facility] [address] Laboratory Report Ordering Provider Test Date Status ROSLYN LACEY 05/22/2023 12:56:01 Final Observation Date Value Abnormality Reference (Units ) Status HbA1C 05/22/2023 12:56:01 5.3 4.0-5.6 (% ) Final The use of HbA1c to monitor glycemic status is based on normal hemoglobin and HbA composition. This test should not be used in patients with abnormal hemoglobin that affects the half life of the red blood cell or the in vivo glycation rates. Glucose, estimated average 05/22/2023 12:56:01 105 <126 (mg/dL) Final Performing Location LAB[facility]ORY [facility] [place] - [address] [facility] [address]
--- OUTSIDE RECORDS SUMMARY | 2023-07-05 23:14 | External Medical Summary ---
Author Name Unknown Address Unknown Organization [id number][place] [place] [facility] [address] [facility] [place] [address] Laboratory Report Ordering Provider Test Date Status ROSLYN LACEY 05/22/2023 12:56:01 Final Observation Date Value Abnormality Reference (Units ) Status TSH 05/22/2023 12:56:01 0.91 0.27-4.20 (uIU/mL) Final Performing Location [facility] [place] [address] [facility] [address]
--- OUTSIDE RECORDS SUMMARY | 2023-07-05 23:14 | External Medical Summary ---
Author Name Unknown Address Unknown Organization [id number][place] [place] [address] [place] [address] Laboratory Report Ordering Provider Test Date Status ROSLYN LACEY 05/22/2023 12:56:01 Final Observation Date Value Abnormality Reference (Units ) Status Vitamin B12 05/22/2023 12:56:01 [phone] (pg/mL) Final Performing Location [facility] [place] [address] [place] [address]
--- OUTSIDE RECORDS SUMMARY | 2023-07-05 23:14 | External Medical Summary | Summary of Care ---
Author Name Unknown Organization [facility] Address [address] [place] [address] Phone [phone] Care Team Providers Care Medical Care Administrator Name Role Phone Andressa Bernal MD Primary Care Provider [phone] Reason for Visit * Reason Onset Date Comments Referral 05/15/2023 Encounter Details Date Type Department Care Team Description 05/15/2023 Telephone General Internal Medicine [facility] [place] [address] [facility] [place] [address] Andressa Bernal MD [facility] [address] Referral Allergies Active Allergy Reactions Severity Noted [...] needed for Heartburn. Taking 6-10. 0 Active Tldnyhr-Wullxvxmrj-Fb tamin D 250-107-500 MG-MG-UNIT Oral Tablet Chewable [...] WEEK 135 Capsule 3 01/23/2023 Active Ipratropium Hamler 0.03 % Nasal Solution (Atrovent) Administer 2 Sprays into nostril in the morning and 2 Sprays before bedtime. 90 mL 3 01/24/2023 Active Additional Information Patient taking differently:2 [place] NasalPRN, Rhinitis, Reported on 05/15/2023 Fluticasone Propionate [...] mRNA, LNP-s, No Pre serve, 2-Dose Series (Quintesocial) 12/19/2022,12/06/2021,05/24/2021,10/14,09/23/2020 Pneumococcal Conjugate Vacc, 13 Valent (Prevnar) [...] Miscellaneous Notes * Telephone Encounter - BAYLEE Phan - 05/15/2023 4:26 PM EDT Scheduled pt for prolia shot 2, please assist with [facility] referral. Pt saw Norma in December, never got scheduled f/u documented in this encounter Plan of Treatment Upcoming Encounters Date Type Specialty Care Team Description 05/19/2023 Immunization/Injection Rheumatology Pf, Nurse Rheum [address] [facility] [place] [address] 05/22/2023 Laboratory Laboratory [place], Lab Scenery [address] [place] [address] 07/24/2023 Laboratory [place]ien[facility] Lab Sc[facility] [address] [place] [address] 07/25/2023 Office Visit Sleep Disorders Mandy Kim CRNP [address] [place] [address] 09/26/2023 Laboratory Laboratory [place] Lab Scenery [address] [place] [address] 11/21/2023 Laboratory Laboratory [place] Lab Scenery [address] [place] [address] 11/28/2023 Imaging Radiology 11/28/2023 Office Visit Hematology Oncology Real Alexander MD [address] [facility] [place] [address] 01/16/2024 Office Visit Dermatology Charisma Hernandez MD 04/30/2024 Imaging Radiology 05/20/2024 Office Visit Internal Medicine Andressa Bernal MD 200 [place] [address] Scheduled Procedures Name Priority Associated Diagnoses Date/Ti [...] D LEVEL ONCE IN A LIFETIME-USE SMARTSET# 17572 Completed 05/04/2023, 04/26/2022 GARDASIL-HPV IMMUNIZATION SERIES Aged Out No longer eligible based on patient's age to complete this topic Hepatitis B Aged Out No longer eligi ble based on patient's age to complete this topic MENINGOCOCCAL (MENACTRA/MENVEO) Aged Out No longer eligible based on patient's age to complete this topic documented as of this encounter Medical Devices Implanted Type Area Plug Grower Device Identifier Shelf Expiration Date Model / Serial / Lot Reflux Management System 15 - [id number] Implanted:Qty: 1 on 11/16/2020 by Jayro Olmos MD at [facility] [place] : [employer] [id number] 05/02/2023 LXM C15 / / [id number] documented as of this encounter Advance Directives Documents on File Type Date Recorded Patient Computer Technical Support Specialist Expl anation Advance Directives and Livin g Will 12/13/2016 ADVANCE DIRECTIVE Power of Automotive Fleet Supervisor 12/13/2016 POWER OF A TTORNEY Latest Code Status on File Code Status Date Activated Date Inactivated Comments Full Code 11/16/2020 3:04 PM 11/17/2020 4:16 PM This order reflects the patients wishes and were consensually agreed upon. Care Teams Medical Care Administrator Relationship Specialty Start Date End Date Andressa Bernal MD 200 [place] [address] PCP - General Internal Medicine 07/30/18 documented as of this encounter
--- OUTSIDE RECORDS SUMMARY | 2023-07-05 23:15 | External Medical Summary ---
Author Name Unknown Address Unknown Organization [id number]:LABORATORY [facility] - [facility] [address] [facility] [address] [place] [address] Laboratory Report Ordering Provider Test Date Status JOSSELYN GIBSON 01/24/2023 12:54:35 Final HLA-B27 Antigen is found in 6-8% of Caucasians,in 3-4% of -Americans and in 1% of Asians. Observation Date Value Abnormality Reference (Units ) Status HLA-B27 [Presence] by Flow cytometry (FC) 01/24/2023 12:54:35 Negative Negative Final Performing Location LABORATORY [facility] - [address] [place] [address]
--- OUTSIDE RECORDS SUMMARY | 2023-07-05 23:15 | External Medical Summary | Summary of Care ---
Author Name Unknown Organization [facility] Address [address] [place] [address] Phone [phone] Care Team Providers Care Restaurant General Manager Name Role Phone Andressa Bernal MD Primary Care Provider [phone] Reason for Visit * Reason Comments eRx-Medication Refill Encounter Details Date Type Department Care Team Description 01/23/2023 Refill Hematology/Oncology [address] [address] Giovani Maldonado MD [address] [place] [address] Essential (hemorrhagic) thrombocythemia (HCC) Allergies Active Allergy Reactions Severity Noted Date Comments Adhesive Tape Rash 04/03/2019 Molds & Smuts Cough 07/30/2018 documented as of this encounter (statuses as of 01/23/2023) Medications Medication Sig Dispensed Refills Start Date End Date Status Multiple Vitamin (MULTI-DAY) TabletIndications:M enopause Take 1 Tab by mouth daily. 0 Active Tums 500 MG Oral Tablet Chewable Take 2 Tablets by mouth every 4 hours as needed for Heartburn. Taking 6-10. 0 Active Calcium-Phosphorus- Vitamin D 250-107-500 MG-MG-UNIT Oral Tablet Chewable - 1000 mg ca/d 1 Tab 0 0 Active guaiFENesin ER 600 MG Oral Tablet Extended Release 12 Hour Take 1 Tablet by mouth in the morning and 1 Tablet before bedtime. 0 Active Simethicone 180 MG Oral Capsule Take by mouth 2 times a day. 0 Active CPAP every night at bedtime. 0 Active Fluticasone Propionate 50 MCG/ACT Nasal Suspension (Flonase) ADMINISTER 2 SPRAYS INTO EACH NOSTRIL EVERY DAY 48 mL 1 2 Active Fexofenadine HCl 180 MG Oral Tablet Take 1 Tablet by mouth daily as needed for Allergies. 0 2 Active Dicyclomine HCl 10 MG Oral Capsule (Bentyl)Indications :S/P repair of paraesophageal hernia,Abdominal cramping Take by mouth 1 Capsule in the morning AND 1 Capsule before bedtime. 180 Capsule 3 2 Active Ipratropium Fitzwilliam 0.03 % Nasal Solution (Atrovent) ADMINISTER INTO NOSTRIL 2 SPRAYS EVERY 12 HOURS 90 mL 1 2 Active Eliquis 5 MG Oral Tablet (Apixaban)Indicatio ns:Acute deep vein thrombosis (DVT) of left lower extremity, unspecified vein (HCC),Essential (hemorrhagic) thrombocythemia (HCC) TAKE 1 TABLET BY MOUTH EVERY DAY IN THE MORNING AND BEFORE BEDTIME 180 Tablet 2 3 Active metroNIDAZOLE 0.75 % External Cream (MetroCream)Indicat ions:Rosacea Apply topically to affected area 2 times a day. apply to affected area. 45 g 5 3 Active Omeprazole 20 MG Oral Capsule Delayed Release (PriLOSEC) Take 1 Capsule by mouth in the morning. 90 Capsule 3 3 Active Atropine Sulfate 1 % Ophthalmic Solution INSTILL 1 DROP INTO RIGHT EYE TWICE A DAY 0 3 Active prednisoLONE Acetate 1 % Ophthalmic Suspension (Pred Forte) 1 Drop in the morning and 1 Drop at noon and 1 Drop in the evening and 1 Drop before bedtime. 0 3 Active Hydroxyurea 500 MG Oral Capsule (Hydrea)Indications :Essential (hemorrhagic) thrombocythemia (HCC) TAKE 1 CAPSULE BY MOUTH ALTERNATING WITH 2 CAPSULES BY MOUTH EVERY OTHER DAY TAKING 6 DAYS A WEEK 135 Capsule 3 3 Active Hydroxyurea 500 MG Oral Capsule (Hydrea)Indications :taking 6 days a week ALTERNATE TAKING 500MG AND 1000MG EVERY OTHER DAY INDICATIONS: TAKING 7 DAYS A WEEK 135 Capsule 3 2 01/24/20 23 Discontinued documented as of this encounter (statuses as of 01/23/2023) Active Problems Problem Noted Date Senile osteoporosis [...] as of this encounter (statuses as of 01/23/2023) Resolved Problems Problem Noted Date Resolved Date Rhinitis, nonallergic 10/05/2018 07/02/2019 Overview: acute Hypersomnolence 09/19/2018 09/28/2020 Overview: 08/07-+snoring,fatigue-- nocturnal oximetry shows desaturation to 89 % with pattern of sleep disordered breathing.,Needs sleep clinic eval- pulmonary referral placed. Tinnitus, subjective, bilateral 08/02/2018 07/02/2019 Chronic rhinitis 07/30/2018 10/05/2018 documented as of this encounter (statuses as of 01/23/2023) Immunizations Name Administration Dates Next Due COVID-19 mRNA, LNP-s, No Pre serve, 2-Dose Series ([employer]) 12/19/2022,12/06/2021,05/24/2021,10/14,09/23/2020 Pneumococcal Conjugate Vacc, 13 Valent (Prevnar) 05/21/2017,05/13/2016,05/11/2009 Pneumococcal Polysaccharide PPV23 (Pneumovax) 07/04/2019,05/13/2016,05/11/2009 Seasonal Influenza Virus Vac cine, Unspecified Formulation 06/10/2019,07/03/2018 Seasonal Influenza, QUAD, wi th Preserv, 6 mons & Above, 0.5 mL, IM 05/12/2017,05/13/2016,05/16/2014,06/10 Seasonal Influenza, Quadriva lent Hd (Fluzone Hd) 06/08/2021 Seasonal Influenza, Quadriva lent, No Preserve, Adjuvanted, 65+ Yrs, IM 05/07/2020 Seasonal Influenza, Trivalen t, High Dose, No [...] encounter Miscellaneous Notes * Telephone Encounter - Linda Weiner RN - 01/23/2023 10:10 AM EDTSigned Prescriptions: Disp Refills Hydroxyurea 500 MG Oral Capsule (Hydrea) 135 Ca*3 Sig: TAKE 1 CAPSULE BY MOUTH ALTERNATING WITH 2 CAPSULES BY MOUTH EVERY OTHER DAY TAKING 6 DAYS A WEEKAuthorizing Provider: REAL VALDIVIA * Telephone Encounter - Mercedes Canada LPN - 01/23/2023 9:24 AM EDTPending Prescriptions: Disp Refills Hydroxyurea 500 MG Oral Capsule (Hydrea) 135 Ca*3 Sig: TAKE 1 CAPSULE BY MOUTH ALTERNATING WITH 2 CAPSULES BY MOUTH EVERY OTHER DAY TAKING 6 DAYS A WEEK * Telephone Encounter - Mercedes Canada LPN - 01/23/2023 9:13 AM EDT Per last OV with Dr. valdivia on 10/03/22, "Currently she is taking hydroxyurea 500 mg alternating [id number] mg on every other day basis. Continue current treatment" Script pended documented in this encounter Plan of Treatment Upcoming Encounters Date Type Specialty Care Team Description 01/24/2023 Office Visit Sleep Disorders Mandy Kim CRNP [address] [place] [address] 01/24/2023 Laboratory Laboratory [place], Lab Scenery [address] [place] [address] 02/20/2023 Laboratory Laboratory [facility] Lab Scenery [address] [place] [address] 03/10/2023 Office Visit General Surgery Parul Disla MD [address] [place] [address] 04/19/2023 Imaging Radiology 04/25/2023 Laboratory Laboratory [facility] Lab Sc[address] [place] [address] 04/26/2023 Office Visit Internal Medicine Andressa Bernal MD [address] [place] [address] 05/02/2023 Office Visit Hematology Oncology Real Valdivia MD [address] [facility] [place] [address] 01/16/2024 Office Visit Dermatology Charisma Hernandez MD [address] [place] [address] Scheduled Procedures Name Priority Associated Diagnoses Date/Ti me COLONOSCOPY FLEXIBLE PROXIMAL DIAGNOSTIC Recall History of colon polyps Health Maintenance Due Date Last Done Comments Depression Screening, Annual for Pts 12 and Over 04/06/2021 04/06/2020 *BISPHONATE OR OTHER ACCEPTABLE MEDICATION NEEDED FOR OSTEOPOROSIS (REFER TO SMARTSET #1146) 11/03/2022 Influenza Vaccine (FLU shot) (Season Ended) 2023 06/08/2021, 05/07/2020, 06/10/2019, Additional history exists [...] D LEVEL ONCE IN A LIFETIME-USE SMARTSET# 39829 Completed 04/26/2022 COVID-19 Vaccine Completed 12/19/2022, 06/2022, [...] this encounter Medical Devices Implanted Type Area Overcoil Stepper Device Identifier Shelf Expiration Date Model / Serial / Lot Reflux Management System 15 - [id number] Implanted:Qty: 1 on 11/16/2020 by Jayro Olmos MD at [facility] [place] : [employer] [id number] 05/02/2023 LXM C15 / / [id number] documented as of this encounter Visit Diagnoses Diagnosis Essential (hemorrhagic) thrombocythemia (HCC) documented in this encounter Advance Directives Documents on File Type Date Recorded Patient Practicing Dermatologist Leo cabrera Advance Directives and Mireya Harvey 12/13/2016 ADVANCE DIRECTIVE Power of Utility Bill Collection Clerk 12/13/2016 POWER OF A TTORNEY Latest Code Status on File Code Status Date Activated Date Inactivated Comments Full Code 11/16/2020 3:04 PM 11/17/2020 4:16 PM This order reflects the patients wishes and were consensually agreed upon. Care Teams Restaurant General Manager Relationship Specialty Start Date End Date Andressa Bernal MD [address] [place] [address] PCP - General Internal Medicine 07/30/18 documented as of this encounter
--- OUTSIDE RECORDS SUMMARY | 2023-07-05 23:15 | External Medical Summary ---
Author Name Unknown Address Unknown Organization K01:LABORATORY [facility] [place] - [facility] [address] [facility] [place] [facility] [address] Laboratory Report Ordering Provider Test Date Status JOSSELYN GIBSON 01/24/2023 12:54:35 Final Observation Date Value Abnormality Reference (Units ) Status Cyclic citrullinated peptide IgG Ab [Presence] in Serum 01/24/2023 12:54:35 Negative Negative Final Cyclic citrullinated peptide IgA+IgG Ab [Units/volume] in Serum or Plasma by Immunoassay 01/24/2023 12:54:35 1.0 <7 (U/mL) Final Performing Location LABORATORY [facility] - [facility] [address] [facility] [facility] [address]
--- OUTSIDE RECORDS SUMMARY | 2023-07-05 23:15 | External Medical Summary ---
Author Name Unknown Address Unknown Organization K01:[facility]ORY [facility] [place] - [address] [facility] [address] [place] [address] Laboratory Report Ordering Provider Test Date Status JOSSELYN GIBSON 01/24/2023 12:54:35 Final Observation Date Value Abnormality Reference (Units ) Status Rheumatoid Factor 01/24/2023 12:54:35 10 <1 4 (IU/mL) Final Performing Location LABORATORY [facility] - [address] [place] [address]
--- OUTSIDE RECORDS SUMMARY | 2023-07-05 23:15 | External Medical Summary ---
Author Name Unknown Address Unknown Organization K01:LABORATORY [facility] - [address] [facility] [place] [address] Laboratory Report Ordering Provider Test Date Status JOSSELYN GIBSON 01/24/2023 12:54:35 Final Observation Date Value Abnormality Reference (Units ) Status Erythrocyte sedimentation rate by Photometric method 01/24/2023 12:54:35 3 <30 (mm/hour) Final Performing Location [facility]ORY [facility] - [address] [facility] [address]
--- OUTSIDE RECORDS SUMMARY | 2023-07-05 23:15 | External Medical Summary ---
Author Name Unknown Address Unknown Organization : Laboratory Report Ordering Provider Test Date Status JOSSELYN GIBSON 01/24/2023 12:54:35 Final Observation Date Value Abnormality Reference (Units ) Status Enzyme 01/24/2023 12:54:35 36.1 9-67 (U/L) Final
Test Performed at:
[facility]
[address] [facility] [place] [address]
Azar Schofield M.D., Ph.D.,Director of Laboratories Performing Location
--- OUTSIDE RECORDS SUMMARY | 2023-07-05 23:15 | External Medical Summary ---
Author Name Unknown Address Unknown Organization K09:LABORATORY [place] [address] Laboratory Report Ordering Provider Test Date Status DILEEP GIFFORD 02/20/2023 13:06:20 Final Observation Date Value Abnormality Reference (Units ) Status WBC, Total 02/20/2023 13:06:20 5.82 4.00-10.8 0 (K/uL) Final RBC 02/20/2023 13:06:20 4.22 3.85-5.15 (M/uL) Final Hemoglobin 02/20/2023 13:06:20 14.9 12.0-15.3 (g/dL) Final HCT 02/20/2023 13:06:20 45.2 36.0-45.2 (%) Final MCV 02/20/2023 13:06:20 107.1 81.5-97.5 (fL) Final MCH 02/20/2023 13:06:20 35.3 27.0-34.0 (pg) Final MCHC 02/20/2023 13:06:20 33.0 32.0-36.0 (g/dL) Final RDW 02/20/2023 13:06:20 12.0 11.5-15.5 (%) Final Platelets 02/20/2023 13:06:20 380 140-400 (K /uL) Final MPV 02/20/2023 13:06:20 9.5 6.6-11.1 ( fL) Final Performing Location LABORATORY [place] [address]
--- OUTSIDE RECORDS SUMMARY | 2023-07-05 23:15 | External Medical Summary | Summary of Care ---
Author Name Unknown Organization [facility] Address [address] [place] [address] Phone [phone] Care Team Providers Care Supervisor Frame Assembly Name Role Phone Andressa Bernal MD Primary Care Provider [phone] Reason for Visit * Reason Comments Rheum Follow Up Recheck c/o "eye rock n/reddness" Encounter Details Date Type Department Care Team Description 01/10/2023 Office Visit Rheumatology [facility] [address] [place] [address] Antionette Green PA-C [address] [place] [address] Iritis*; Unspecified donor, other blood Allergies Active Allergy Reactions Severity Noted Date Comments Adhesive Tape Rash 04/03/2019 Molds & Smuts Cough 07/30/2018 documented as of this encounter (statuses as of 01/11/2023) Medications Medication Sig Dispensed Refills Start Date End Date Status Multiple Vitamin (MULTI-DAY) TabletIndications:Men opause Take 1 Tab by mouth daily. 0 Active Tums 500 MG Oral Tablet Chewable Take 2 Tablets by mouth every 4 hours as needed for Heartburn. Taking 6-10. 0 Active Qydnoue-Adwmlgnrlz-Sr tamin D 250-107-500 MG-MG-UNIT Oral Tablet Chewable - 1000 mg ca/d 1 Tab 0 04/06/2020 Active guaiFENesin ER 600 MG Oral Tablet Extended Release 12 Hour Take 1 Tablet by mouth in the morning and 1 Tablet before bedtime. 0 Active Simethicone 180 MG Oral Capsule Take by mouth 2 times a day. 0 Active CPAP every night at bedtime. 0 Active Hydroxyurea 500 MG Oral Capsule (Hydrea)Indications:t aking 6 days a week ALTERNATE TAKING 500MG AND 1000MG EVERY OTHER DAY INDICATIONS: TAKING 7 DAYS A WEEK 135 Capsule 3 11/17/2021 Active Fluticasone Propionate 50 MCG/ACT Nasal Suspension (Flonase) ADMINISTER 2 SPRAYS INTO EACH NOSTRIL EVERY DAY 48 mL 1 01/04/2022 Active Fexofenadine HCl 180 MG Oral Tablet Take 1 Tablet by mouth daily as needed for Allergies. 0 04/26/2022 Active Dicyclomine HCl 10 MG Oral Capsule (Bentyl)Indications:S /P repair of paraesophageal hernia,Abdominal cramping Take by mouth 1 Capsule in the morning AND 1 Capsule before bedtime. 180 Capsule 3 04/26/2022 Active Ipratropium [place] 0.03 % Nasal Solution (Atrovent) ADMINISTER INTO NOSTRIL 2 SPRAYS EVERY 12 HOURS 90 mL 1 08/04/2022 Active Eliquis 5 MG Oral Tablet (Apixaban)Indications [...] 1 Drop before bedtime. 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 Tinnitus, subjective, bilateral 08/02/2018 07/02/2019 Chronic rhinitis 07/30/2018 10/05/2018 documented as of this encounter (statuses as of 01/11/2023) Immunizations Name Administration Dates Next Due COVID-19 mRNA, LNP-s, No Pre serve, 2-Dose Series (RMI) 12/19/2022,12/06/2021,05/24/2021,10/14,09/23/2020 Pneumococcal Conjugate Vacc, 13 Valent (Prevnar) [...] Pressure - - Pulse - - Temperature 36.6 C (97.8 F) 01/10/2023 9:51 AM ED T Respiratory Rate - - Oxygen Saturation - - Inhaled Oxygen Concentration - - Weight 55.3 kg (122 lb) 01/10/2023 9:51 AM EDT Height - - Body Mass Index 22.31 11/14/2022 3:08 PM EDT documented in this encounter Progress Notes * Antionette Green PA-C - 01/10/2023 10:07 AM EDT Subjective: Patient seen today for further follow up evaluation of Iritis. Since the last visit she has developed iritis of the right eye. No other systemic symptoms. She is normally seen for osteoporosis, her last set of dental work will be the end of March. She states her daughter has SLE. Musculoskeletal ROS: . Normal Other ROS: Pertinent positives in HPI . Constitutional: normal . Head normal . Eyes: normal . Ears, nose, throat, mouth: normal . Cardiovascular: normal . Respiratory: normal . Gastrointestinal: normal . Genitourinary: normal . Skin: normal . Neurologic: normal All other ROS reviewed and negative Social History: Social History Tobacco Use Smoking status: Former Packs/day: 0.10 Years: 10.00 Pack years: 1.00 Types: Cigarettes Quit date: 07/30/1974 Years since quittin.4 Smokeless tobacco: Never Tobacco comments: Pt was a social smoker. Substance Use Topics Alcohol use: Yes Comment: social Vaping/E-Cigarette Use Vaping/E-Cigarette Use Never User Vaping/E-Cigarette Substances Vaping/E-Cigarette Devices Current Outpatient Medications Medication Sig Dispense Refill Multiple Vitamin (MULTI-DAY) Tablet Take 1 Tab by mouth daily. Tums 500 MG Oral Tablet Chewable Take 2 Tablets by mouth every 4 hours as needed for Heartburn.Taking 6-10. Gfrnnku-Ezyzvtkarj-Jcfqgxh D 250-107-500 MG-MG-UNIT Oral Tablet Chewable - 1000 mg ca/d 1 Tab 0 guaiFENesin ER 600 MG Oral Tablet Extended Release 12 Hour Take 1 Tablet by mouth in the morning and 1 Tablet before bedtime. Simethicone 180 MG Oral Capsule Take by mouth 2 times a day. CPAP every night at bedtime. Hydroxyurea 500 MG Oral Capsule (Hydrea) ALTERNATE TAKING 500MG AND 1000MG EVERY OTHER DAY INDICATIONS: TAKING 7 DAYS A WEEK 135 Capsule 3 Fluticasone Propionate 50 MCG/ACT Nasal Suspension (Flonase) ADMINISTER 2 SPRAYS INTO EACH NOSTRIL EVERY DAY 48 mL 1 Fexofenadine HCl 180 MG Oral Tablet Take 1 Tablet by mouth daily as needed for Allergies. Dicyclomine HCl 10 MG Oral Capsule (Bentyl) Take by mouth 1 Capsule in the morning AND 1 Capsule before bedtime. 180 Capsule 3 Ipratropium [place] 0.03 % Nasal Solution (Atrovent) ADMINISTER INTO NOSTRIL 2 SPRAYS EVERY 12 HOURS 90 mL 1 Eliquis 5 MG Oral Tablet (Apixaban) TAKE 1 TABLET BY MOUTH EVERY DAY IN THE MORNING AND BEFORE BEDTIME 180 Tablet 2 metroNIDAZOLE 0.75 % External Cream (MetroCream) Apply topically to affected area 2 times a day. apply to affected area. 45 g 5 Omeprazole 20 MG Oral Capsule Delayed Release (PriLOSEC) Take 1 Capsule by mouth in the morning. 90 Capsule 3 Atropine Sulfate 1 % Ophthalmic Solution INSTILL 1 DROP INTO RIGHT EYE TWICE A DAY prednisoLONE Acetate 1 % Ophthalmic Suspension (Pred Forte) 1 Drop in the morning and 1 Drop atnoon and 1 Drop in the evening and 1 Drop before bedtime. No current facility-administered medications for this visit. Physical Exam Filed Vitals: 01/10/23 0951 Temp: 36.6 C (97.8 F) TempSrc: Infrared Weight: 55.3 kg (122 lb) General: alert, healthy and no distress Eye Exam: EOMI, conjunctiva are pink and non-injected, sclera clear, right pupil > left pupil Heart: regular rate & rhythm, no murmur and no gallops Lungs: clear to auscultation , no rales, wheezes or rhonchi Abdomen: abdomen soft, non-tender, normal bowel sounds and no masses or organomegaly Extremities: no edema, no clubbing, no cyanosis Neuro Exam: alert & oriented x 3 with fluent speech, no focal motor/sensory deficits, gait normal, reflexes normal and symmetric Skin: skin color, texture, turgor are normal, no rashes or significant lesions Musculoskeletal Exam: . Normal Assessment: H20.9 Iritis (primary encounter diagnosis) The patient presents today with new onset iritis. Will order multiple labs today. Continue close follow up with ophthalmology. Patient advised to contact the clinic with questions. Patient is aware that I will be leaving [facility] in January and follow up will be with one of my colleagues. Plan: 1. Discussed the above in detail with the patient. All questions were answered. 2. Meds: no change 3. Testing: SLE reflex, NAM, HLA-B27, ESR, CRP, RF, CCP 4. Follow up: 4 months Antionette Green PA-C Department of Rheumatology CC: Andressa Bernal MD The patient was discussed with me. I agree with the findings and plan as documented by Antionette Green PA-C in this note. Moody Bush MD Rheumatology Department documented in this encounter Nursing Notes * Jeffy Kimbrough LPN - 01/10/2023 9:51 AM EDT Chief Complaint Patient presents with Rheum Follow Up Recheck c/o "eye pain/reddness" documented in this encounter Plan of Treatment Upcoming Encounters Date Type Specialty Care Team Description 01/19/2023 Laboratory Laboratory [facility] [address] [facility] [place] [id number] 01/24/2023 Office Visit Sleep Disorders Mandy Kim CRNP [address] [place] [address] 01/27/2023 Telemedicine General Surgery Immanuel Benavides PA-C [address] [place] [address] 02/20/2023 Laboratory [facility] Suzette [facility] [address] [facility] [place] [address] 04/19/2023 Imaging Radiology 04/25/2023 [facility] [address] [facility] [place] [address] 04/26/2023 Office Visit Internal Medicine Andressa Bernal MD [address] [facility] [place] [address] 05/02/2023 Office [facility] [address] 01/16/2024 Office Visit Dermatology Charisma Hernandez MD [address] [facility] [address] [place] [address] Scheduled Orders Name Type Priority Associated Diagnoses Orde r Schedule SYSTEMIC LUPUS ERYTHEMATOSUS REFLEX PROFILE Lab Routine Iritis Expected: 01/10/2023, Expires: 01/11/2024 ANGIOTENSIN CONVERTING ENZYME Lab Routine Iritis Expected: 01/10/2023, Expires: 01/11/2024 ERYTHROCYTE SEDIMENTATION RATE (ESR) Lab Routine Iritis Ordered: 01/10/2023 CRP (INFLAMMATORY MARKER) Lab Routine Iritis Ordered: 01/10/2023 RHEUMATOID FACTOR Lab Routine Iritis Expected: 01/10/2023, Expires: 01/11/2024 CYCLIC CITRULLINATED PEPTIDE IGG ANTIBODY Lab Routine Iritis Expected: 01/10/2023, Expires: 01/11/2024 HLA B27 ANTIGEN, FLOW CYTOMETRY Lab Routine Iritis Unspecified donor, other blood Expected: 01/10/2023, Expires: 01/11/2024 Scheduled Procedures Name Priority Associated Diagnoses Date/Ti [...] D LEVEL ONCE IN A LIFETIME-USE SMARTSET# [id number] Completed 04/26/2022 COVID-19 Vaccine Completed 12/19/2022, 06/2022, [...] this encounter Medical Devices Implanted Type Area Etcher Hand Device Identifier Shelf Expiration Date Model / Serial / Lot Reflux Management System 15 - [id number] Implanted:Qty: 1 on 11/16/2020 by Jayro Olmos MD at [facility] [place] : [employer] [id number] 05/02/2023 LXM C15 / / [id number] documented as of this encounter Visit Diagnoses Diagnosis Iritis- Primary Unspecified iridocyclitis Unspecified donor, other blood documented in this encounter Advance Directives Documents on File Type Date Recorded Patient Dope Maintenance Worker Expl anation Advance Directives and Livin g Will 12/13/2016 ADVANCE DIRECTIVE Power of Inside Barrel Lathe Operator 12/13/2016 POWER OF A TTORNEY Latest Code Status on File Code Status Date Activated Date Inactivated Comments Full Code 11/16/2020 3:04 PM 11/17/2020 4:16 PM This order reflects the patients wishes and were consensually agreed upon. Care Teams Supervisor Frame Assembly Relationship Specialty Start Date End Date Andressa Bernal MD [address] [facility] [place] [address] PCP - General Internal Medicine 07/30/18 documented as of this encounter
--- OUTSIDE RECORDS SUMMARY | 2023-07-05 23:15 | External Medical Summary ---
Author Name Unknown Address Unknown Organization K09:[facility] [address] [place] [address] Laboratory Report Ordering Provider Test Date Status DILEEP GIFFORD 04/25/2023 13:02:10 Final Observation Date Value Abnormality Reference (Units ) Status BUN 04/25/2023 13:02:10 14 6-20 (mg/dL) Final Creatinine 04/25/2023 13:02:10 0.8 0.5-1.0 (mg/dL) Final Glomerular filtration rate/1.73 sq M.predicted [Volume Rate/Area] in Serum, Plasma or Blood by Creatinine-based formula (CKD-EPI) 04/25/2023 13:02:10 73 >=60 (mL/min) Final eGFR is calculated based on the CKD-EPI 2020 equation SODIUM 04/25/2023 13:02:10 135 135-146 (m mol/L) Final Potassium 04/25/2023 13:02:10 5.2 Above high normal 3. 5-5.1 (mmol/L) Final Cl 04/25/2023 13:02:10 98 98-107 (mm ol/L) Final CO2 04/25/2023 13:02:10 26 22-32 (mmo l/L) Final Anion gap 04/25/2023 13:02:10 11 7-15 (mmol /L) Final Glucose 04/25/2023 13:02:10 104 70-120 (mg /dL) Final Albumin 04/25/2023 13:02:10 4.1 3.8-5.0 (g /dL) Final AST (Aspartate aminotransferase) 04/25/2023 13:02:10 19 10-35 (U/L) Fin al Alk Phos 04/25/2023 13:02:10 86 35-130 (U/ L) Final Bilirubin, Total 04/25/2023 13:02:10 0.4 <=1 .2 (mg/dL) Final Calcium 04/25/2023 13:02:10 9.0 8.4-10.2 ( mg/dL) Final Protein 04/25/2023 13:02:10 6.2 6.0-8.3 (g /dL) Final ALT (Alanine aminotransferase) 04/25/2023 13:02:10 19 10-35 (U/L) Rohit rock Performing Location [facility] [address] [place] [address]
--- OUTSIDE RECORDS SUMMARY | 2023-07-05 23:15 | External Medical Summary | Summary of Care ---
Author Name Unknown Organization [facility] Address [address] [place] [address] Phone [phone] Care Team Providers Care Sweater Operator Name Role Phone Andressa Bernal MD Primary Care Provider Reason for Visit * Reason Comments Follow Up Small Paraesophageal Hernia. 11/16/2020. Encounter Details Date Type Department Care Team Description 03/10/2023 Office Visit General Surgery, [facility] [address] [facility] [place] [address] Parul Disla MD [address] [place] [address] Gastroesophageal reflux disease with esophagitis without hemorrhage*; S/P repair of paraesophageal hernia; Chronic cough; Paraesophageal hernia Allergies Active Allergy Reactions Severity Noted Date Comments Adhesive Tape Rash 04/03/2019 Molds & Smuts Cough 07/30/2018 documented as of this encounter (statuses as of 03/10/2023) Medications Medication Sig Dispensed Refills Start Date End Date Status Multiple Vitamin (MULTI-DAY) TabletIndications:Men opause Take 1 Tab by mouth daily. 0 Active Tums 500 MG Oral Tablet Chewable Take 2 Tablets by mouth every 4 hours as needed for Heartburn. Taking 6-10. 0 Active Vejasew-Zmzmyqfmwd-Ro tamin D 250-107-500 MG-MG-UNIT Oral Tablet Chewable [...] WEEK 135 Capsule 3 01/23/2023 Active Ipratropium Quincy 0.03 % Nasal Solution (Atrovent) Administer 2 Sprays into nostril in the morning and 2 Sprays before bedtime. 90 mL 3 01/24/2023 Active Fluticasone Propionate 50 MCG/ACT Nasal Suspension (Flonase) ADMINISTER 2 SPRAYS INTO EACH NOSTRIL EVERY DAY 48 mL 3 01/24/2023 Active documented as of this encounter (statuses as of 03/10/2023) Active Problems Problem Noted Date Senile osteoporosis 03/27/2022 Overview: 8/22--T-score invalid at Lumbar spine: -2.3 left hip,dec [...] as of this encounter (statuses as of 03/10/2023) Resolved Problems Problem Noted Date Resolved Date Rhinitis, nonallergic 10/05/2018 07/02/2019 Overview: acute Hypersomnolence 09/19/2018 09/28/2020 Overview: 08/07-+snoring,fatigue-- nocturnal oximetry shows desaturation to 89 % with pattern of sleep disordered breathing.,Needs sleep clinic eval- pulmonary referral placed. Tinnitus, subjective, bilateral 08/02/2018 07/02/2019 Chronic rhinitis 07/30/2018 10/05/2018 documented as of this encounter (statuses as of 03/10/2023) Immunizations Name Administration Dates Next Due COVID-19 [...] Pressure - - Pulse - - Temperature - - Respiratory Rate - - Oxygen Saturation - - Inhaled Oxygen Concentration - - Weight 57 kg (125 lb 11.2 oz) 03/10/2023 11:15 A M EDT Height - - Body Mass Index 22.99 01/24/2023 9:55 AM EDT documented in this encounter Progress Notes * Parul Disla MD - 03/10/2023 11:10 AM EDT [facility]" AT [facility] CLINIC VISIT 03/10/2023 Karen Gillwilfrid [id number] 77 year old PCP: Andressa Bernal MD [facility] Surgical History: Laparoscopy; Repair Paraesophageal Hernia; for hiatal hernia repair 11/16/[address] Olmos Magnetic Sphincter Augmentation Laparoscopic Bilateral Transversus Abdominus Plane Block HPI: This patient presents for follow up after Laparoscopic Paraesophageal Hernia Repair without Malcolm Gastroplasty without fundoplication. The patient is currently taking PPI's. The patient's postoperative outpatient narcotic requirement was: Used none Has no major complaints today. Still has some coughing issues but states this is has been longstanding before surgery. Has been following up with Pulm and her PCP to manage this. Preoperative Reflux Symptom Index score was 38. Preoperative GERD-Health Related Quality of Life score was 38. Continuesto have moderate heartburn but overall her symptoms compared to prior to surgery have significantlyimproved. Her heartburn seems to be worse at night. Currently takes omeprazole daily and feels her heartburn is controlled. Had UGI at her last visit in 2021 with [facility]. This did not show recurrence ofher PEH. Current symptoms: Heartburn Score: 2 - Moderate - reasonably well controlled with ongoing treatment Gas Bloat Score: 2 - moderate Dysphagia Score: 0 - no dysphagia Regurgitation Score: 1 - mild - after straining or large meal Nausea/Vomiting Score: 0 - none Diarrhea: 2 - moderate Current symptom scorin QOLRAD completed: no Burping or belching Yes Tolerating a Regular diet. We have DISCONTINUED her NONE . Any history of Pena's esophagitis?No; Follow up EGD? n/a Complications: Postoperative complications include: 0 - NONE Clavien Score: N/A Unplanned admission to ICU within 30 days? no Readmission with in 30 days? no Interventions/Re-operations within 30 days? no HPI 01/25/2022: Has been having issues with cough intermediate frame tender but worsening since 05/2021. Follows Tj and asked us to evaluate at that time. UGI was completed on 09/16/2021 at [facility] and did not reveal HH but did show some minor reflux. Is still taking Nexium as she was pre op and denies GERD, dysphagia or emesis. Does have some issues taking her pills in general especially her Ca+ pills which she now cuts in half. HPI 04/20/2021: This patient presents for follow up after Laparoscopic Paraesophageal Hernia Repair and Linx placement. The patient is currently not taking antacids. Had UGI last week per protocol. Some minor food intolerance with some breads, dry meats and sweets but otherwise tolerates a regular diet. The patient's postoperative outpatient narcotic requirement was: Used none The main preoperative symptoms included Chronic cough. Symptoms that are resolved or significantly improved include Chronic cough. Preoperative Reflux Symptom Index score was 38. Preoperative GERD-Health Related Quality of Life score was 38. Current symptoms: 04/20/2021 Heartburn Score: 0 - None Gas Bloat Score: 0 - None Dysphagia Score: 0 - no dysphagia Regurgitation Score: 0 - none Nausea/Vomiting Score: 0 - none Diarrhea: 0 - none Current symptom scorin Reflux Symptom Index Evaluation (0-5): 04/20/2021 Hoarseness or problem with voice: 0 Throat Clearin Excess throat mucus/post-nasal drip: 0 Difficulty swallowing food, liquid, pills: 0 Coughing after eating or lying down: 0 Breathing difficulties or choking episodes: 0 Troublesome or annoying cough: 0 Globus sensation: 1 Heartburn, chest pain, indigestion, or stomach acid coming up: 0 Current RSI Total Score: 1 GERD-HRQL Evaluation (0-5) 04/20/2021 Global heartburn severity: 0 Supine heartburn: 0 Upright heartburn: 0 Post-parandial heartburn: 0 Does heartburn require dietary modification? 0 Does heartburn awaken from sleep? 0 Difficulty swallowin Pain with swallowin Feelings of gassiness or bloatin Impact of taking medication on daily life:0 Current GERD-HRQL score: 1 QOLRAD completed: YES Burping or belching no Tolerating a regular diet We have obtained the following NEW STUDIES EGD 11/21/2022 Findings & Specimens: Non-severe esophagitis with no bleeding was found at the gastroesophageal junction. Moderate mucosal changes characterized by congestion, erythema and erosion were found in the entire examined stomach. Biopsies were taken with a cold forceps for Helicobacter pylori testing. Verification of patient identification for the specimen was done by the physician and nurse using the patient's name and date. Estimated blood loss was minimal. The examined duodenum was normal. Impression: - Non-severe reflux esophagitis with no bleeding. - Congested, erythematous and eroded mucosa in the stomach. Biopsied. - Normal examined duodenum. Current Outpatient Medications Medication Sig Dispense Refill Multiple Vitamin (MULTI-DAY) Tablet Take 1 Tab by mouth daily. Tums 500 MG Oral Tablet Chewable Take 2 Tablets by mouth every 4 hours as needed for Heartburn.Taking 6-10. Ctxruka-Swmvbyvapl-Mjouati D 250-107-500 MG-MG-UNIT Oral Tablet Chewable - 1000 mg ca/d 1 Tab 0 guaiFENesin ER 600 MG Oral Tablet Extended Release 12 Hour Take 1 Tablet by mouth in the morning and 1 Tablet before bedtime. Simethicone 180 MG Oral Capsule Take by mouth 2 times a day. CPAP every night at bedtime. Fexofenadine HCl 180 MG Oral Tablet Take 1 Tablet by mouth daily as needed for Allergies. Dicyclomine HCl 10 MG Oral Capsule (Bentyl) Take by mouth 1 Capsule in the morning AND 1 Capsule before bedtime. 180 Capsule 3 Eliquis 5 MG Oral Tablet (Apixaban) TAKE [...] the evening and 1 Drop before bedtime. Hydroxyurea 500 MG Oral Capsule (Hydrea) TAKE 1 CAPSULE BY MOUTH ALTERNATING WITH 2 CAPSULES BYMOUTH EVERY OTHER DAY TAKING 6 DAYS A WEEK 135 Capsule 3 Ipratropium Quincy 0.03 % Nasal Solution (Atrovent) Administer 2 Sprays into nostril in the morning and 2 Sprays before bedtime. 90 mL 3 Fluticasone Propionate 50 MCG/ACT Nasal Suspension (Flonase) ADMINISTER 2 SPRAYS INTO EACH NOSTRIL EVERY DAY 48 mL 3 No current facility-administered medications for this visit. Allergies as of 03/10/2023 - Reviewed 01/24/2023 Allergen Reaction Noted Adhesive tape Rash 04/03/2019 Molds & smuts Cough 07/30/2018 Physical Exam: 03/10/2023 There were no vitals taken for this visit. General: Alert and appropriate. Well-appearing and in no distress Abdomen: Soft; Nontender; NO Distention; NO Organomegaly; NO Masses; Wounds: healed well Hernia; NONE Impression: Very good progress after Laparoscopy; Repair Paraesophageal Hernia; for hiatal hernia repair 11/16/[address] Olmos Magnetic Sphincter Augmentation Laparoscopic Bilateral Transversus Abdominus Plane Block Plan: 1) Diet: Regular diet and Cut and chew foods to the consistency of applesauce. Eat slowly and with plenty of liquids. 2) Activity: Unrestricted. 3) Follow up visit scheduled in [facility] ("[facility]"): PRN 4) Wound: Well healed. she may bathe and shower normally. 5) Medications: continue omeprazole daily. Given that her heartburn significantly increases at night, advised her to take her omeprazole in the evenings and if her symptoms still do not feel well controlled then may increase to BID. Her UGI did not reveal a recurrence. Her EGD revealed mild esophagitis and gastritis. At this time patient feels her symptoms are manageable with omeprazole and does not wish for any surgical interventions. 6) Return to work/school: N/A I spent a total of 25 min on the date of service in preparation, delivery, and documentation of thecare provided to Karen Fuller excluding any time spent in the performance of separately billed services. Parul Disla M.D. Minimally Invasive Foregut and Bariatric Surgeon [facility] Office documented in this encounter Nursing Notes * SHAHRIAR Esparza - 03/10/2023 11:16 AM EDT Chief Complaint Patient presents with Follow Up Small Paraesophageal Hernia. 11/16/2020. Verified patient. No pain, no question and no concerns, patient is here alone today. documented in this encounter Plan of Treatment Upcoming Encounters Date Type Specialty Care Team Description 04/19/2023 Imaging Radiology 04/25/2023 [address] [place] [id number] 04/26/2023 Office Visit Internal Medicine Andressa Bernal MD [address] [place] [id number] 05/02/2023 Office Visit Hematology Oncology Real Alexander MD [address] [place] [id number] 07/25/2023 Office Visit Sleep Disorders Mandy Kim CRNP [address] [place] [id number] 01/16/2024 Office Visit Dermatology DavidCharisma MD Scheduled Procedures Name Priority Associated Diagnoses Date/Ti [...] D LEVEL ONCE IN A LIFETIME-USE SMARTSET# [id number] Completed 04/26/2022 COVID-19 Vaccine Completed 12/19/2022, 06/2022, [...] this encounter Medical Devices Implanted Type Area School Speech Therapist Device Identifier Shelf Expiration Date Model / Serial / Lot Reflux Management System 15 - [id number] Implanted:Qty: 1 on 11/16/2020 by Jayro Olmos MD [place] [facility] [place] : [employer] [id number] 05/02/2023 M C15 / / [id number] documented as of this encounter Visit Diagnoses Diagnosis Gastroesophageal reflux disease with esophagitis without hemorrhage- Primary S/P repair of paraesophageal hernia Other postprocedural status Chronic cough Cough Paraesophageal hernia Diaphragmatic hernia without mention of obstruction or gangrene documented in this encounter Advance Directives Documents on File Type Date Recorded Patient Pressurizer Expl anation Advance Directives and Mireya hamilton Wes 12/13/2016 ADVANCE DIRECTIVE Power of Allied Health Teacher 12/13/2016 POWER OF A TTORNEY Latest Code Status on File Code Status Date Activated Date Inactivated Comments Full Code 11/16/2020 3:04 PM 11/17/2020 4:16 PM This order reflects the patients wishes and were consensually agreed upon. Care Teams Sweater Operator Relationship Specialty Start Date End Date Andressa Bernal MD [address] [facility], [place] [id number] PCP - General Internal Medicine 07/30/18 documented as of this encounter
--- OUTSIDE RECORDS SUMMARY | 2023-07-05 23:15 | External Medical Summary ---
Author Name Unknown Address Unknown Organization [id number]:LABORATORY [facility] [place] - [address] [place] [address] Laboratory Report Ordering Provider Test Date Status JOSSELYN GIBSON 01/24/2023 12:54:35 Final Observation Date Value Abnormality Reference (Units ) Status Nuclear IgG Ab [Ratio] in Serum by Immunoassay 01/24/2023 12:54:35 Negative Negative Final DNA double strand Ab [Presence] in Serum 01/24/2023 12:54:35 Negative Negative Final DOUBLE STRANDED DNA VALUE - [facility] 01/24/2023 12:54:35 <0.6 <20 (IU/mL) Final Extractable nuclear Ab [Presence] in Serum 01/24/2023 12:54:35 Negative Negative Final Nuclear IgG Ab [Ratio] in Serum by Immunoassay 01/24/2023 12:54:35 0.1 <0.7 (Ratio) Final Performing Location LABORATORY [facility] [place] - [address] [place] [address]
--- OUTSIDE RECORDS SUMMARY | 2023-07-05 23:15 | External Medical Summary | Summary of Care ---
Author Name Unknown Organization [facility] Address [address] [place] [address] Phone [phone] Care Team Providers Care Truck Technician Name Role Phone Andressa Bernal MD Primary Care Provider [phone] Reason for Visit * Reason Comments Follow Up Sleep Apnea Chronic CoughApical Lung Scarring Encounter Details Date Type Department Care Team Description 01/24/2023 Office Visit Sleep Disorders [facility]tr [facility] [address] [place] [id number] Mandy Kim CRNP [address] [place] [address] BAYLEE treated with BiPAP*; Nocturnal hypoxemia; Aerophagia; Insomnia, unspecified type; Chronic cough; Post-nasal drip; Gastroesophageal reflux disease with esophagitis without hemorrhage Allergies Active Allergy Reactions Severity Noted Date Comments Adhesive Tape Rash 04/03/2019 Molds & Smuts Cough 07/30/2018 documented as of this encounter (statuses as of 01/24/2023) Medications Medication Sig Dispensed Refills Start Date End Date Status Multiple Vitamin (MULTI-DAY) TabletIndications:Me nopause Take 1 Tab by mouth daily. 0 Active Tums 500 MG Oral Tablet Chewable Take 2 Tablets by mouth every 4 hours as needed for Heartburn. Taking 6-10. 0 Active Gbpwwsq-Dzckjugasc-R itamin D 250-107-500 MG-MG-UNIT Oral Tablet Chewable [...] WEEK 135 Capsule 3 3 Active Ipratropium Sanborn 0.03 % Nasal Solution (Atrovent) Administer 2 Sprays into nostril in the morning and 2 Sprays before bedtime. 90 mL 3 3 Active Fluticasone Propionate 50 MCG/ACT Nasal Suspension (Flonase) ADMINISTER 2 SPRAYS INTO EACH NOSTRIL EVERY DAY 48 mL 3 3 Active Fluticasone Propionate 50 MCG/ACT Nasal Suspension (Flonase) ADMINISTER 2 SPRAYS INTO EACH NOSTRIL EVERY DAY 48 mL 1 2 01/25/20 23 Discontinu ed(Refill) Ipratropium Sanborn 0.03 % Nasal Solution (Atrovent) ADMINISTER INTO NOSTRIL 2 SPRAYS EVERY 12 HOURS 90 mL 1 2 01/25/20 23 Discontinu ed(Refill) documented as of this encounter (statuses as of 01/24/2023) Active Problems Problem Noted Date Senile osteoporosis [...] as of this encounter (statuses as of 01/24/2023) Resolved Problems Problem Noted Date Resolved Date Rhinitis, nonallergic 10/05/2018 07/02/2019 Overview: acute Hypersomnolence 09/19/2018 09/28/2020 Overview: 08/07-+snoring,fatigue-- nocturnal oximetry shows desaturation to 89 % with pattern of sleep disordered breathing.,Needs sleep clinic eval- pulmonary referral placed. Tinnitus, subjective, bilateral 08/02/2018 07/02/2019 Chronic rhinitis 07/30/2018 10/05/2018 documented as of this encounter (statuses as of 01/24/2023) Immunizations Name Administration Dates Next Due COVID-19 mRNA, LNP-s, No Pre serve, 2-Dose Series (Gear6) 12/19/2022,12/06/2021,05/24/2021,10/14,09/23/2020 Pneumococcal Conjugate Vacc, 13 Valent (Prevnar) [...] Sign Reading Time Taken Comments Blood Pressure 122/70 01/24/2023 9:55 AM EDT Pulse 75 01/24/2023 9:55 AM EDT Temperature 36.4 C (97.6 F) 01/24/2023 9:55 AM ED T Respiratory Rate 16 01/24/2023 9:55 AM EDT Oxygen Saturation 99% 01/24/2023 9:55 AM EDT Inhaled Oxygen Concentration - - Weight 55.3 kg (122 lb) 01/24/2023 9:55 AM EDT Height 157.5 cm (5' 2") 01/24/2023 9:55 AM EDT Body Mass Index 22.31 01/24/2023 9:55 AM EDT documented in this encounter Progress Notes * SHELLI Yee - 01/24/2023 10:15 AM EDT [facility] Karen Fuller is a 77 year old female who presents for follow-up. Last clinic visit 07/12/2022 at which time slight increase in BPAP settings made. ICS/LABA stopped. Pulmonary/Sleep History: OSAwith insomniaon BIPAP - intolerant to CPAP with aerophagia Chronic cough -onset20+ yrsago, failedAdvair, Serevent, Flovent, Breo, montelukast Hx of bronchitis. No PNA orchildhood asthma. Non allergic rhinitis - s/p allergy immunotherapy 2017, neg NE rast/IgE/abs eos GERD, s/p hiatal hernia repair October Pulmonary Symptoms: Reports 0 ER visits/hospitalization and 0 courses of prednisone related to their breathing in the past year. Worsened cough lately which she relates to the pollen. Cough: Yes, worse when outdoors/pollen, noted when first lying down and occasionally during the night after using the restroom, in the mornings after getting up and moving, after eating Sputum Production: intermittently Hemoptysis: denies Dyspnea: denies Chest tightness or wheezing: Wheezing after coughing a lot, some tightness Environmental allergies: Scratchy throat Has been off of ICS/LABA for the past year. No use of albuterol. Continues nasal sprays. Continues GI medications and lifestyle modifications. Working with ophthalmology regarding right eye (dilation, "sticky eye"). Sleep Symptoms & Treatment: BPAP used nightly. Hasn't been wearing it as long. Sleep had been impacted by tooth pain (less now)and eye drops every two hours. She's struggling to get comfortable at night. Some mask fit issues causing noise that is disruptive. Replacing the supplies of her mask may help. In bed 2215. ROSANNE 60 minutes (everything is off, ruminating). Wakes 2-3x. Not awake for long periods. Final wake up time 0630. Denies daytime dozing or napping. Denies drowsy driving. Denies RLS. Notes aerophagia, moderate severity, resolves easily. 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 Omeprazole 20 MG Oral Capsule Delayed Release (PriLOSEC) Take 1 Capsule by mouth in the morning. metroNIDAZOLE 0.75 % External Cream (MetroCream) Apply topically to affected area 2 times a day. apply to affected area. Eliquis 5 MG Oral Tablet (Apixaban) TAKE 1 TABLET BY MOUTH EVERY DAY IN THE MORNING AND BEFORE BEDTIME Ipratropium Sanborn 0.03 % Nasal Solution (Atrovent) ADMINISTER INTO NOSTRIL 2 SPRAYS EVERY 12 HOURS Dicyclomine HCl 10 MG Oral Capsule (Bentyl) Take by mouth 1 Capsule in the morning AND 1 Capsule before bedtime. Fexofenadine HCl 180 MG Oral Tablet Take 1 Tablet by mouth daily as needed for Allergies. Fluticasone Propionate 50 MCG/ACT Nasal Suspension (Flonase) ADMINISTER 2 SPRAYS INTO EACH NOSTRIL EVERY DAY [DISCONTINUED] Hydroxyurea 500 MG Oral Capsule (Hydrea) ALTERNATE TAKING 500MG AND 1000MG EVERYOTHER DAY INDICATIONS: TAKING 7 DAYS A WEEK CPAP every night at bedtime. Simethicone 180 MG Oral Capsule Take by mouth 2 times a day. guaiFENesin ER 600 MG Oral Tablet Extended Release 12 Hour Take 1 Tablet by mouth in the morning and 1 Tablet before bedtime. Cyndjdv-Umgwttifss-Clbluep D 250-107-500 MG-MG-UNIT Oral Tablet Chewable - 1000 mg ca/d Tums 500 MG Oral Tablet Chewable Take 2 Tablets by mouth every 4 hours as needed for Heartburn.Taking 6-10. Multiple Vitamin (MULTI-DAY) Tablet Take 1 Tab by mouth daily. 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 Weight stable HENT: Positive for congestion, postnasal drip, rhinorrhea and trouble swallowing (pills, occasionalcough after eating/drinking). Cardiovascular: Negative for chest pain, palpitations and leg swelling. Gastrointestinal: JEREMIAH symptoms a couple of times a week, food related Musculoskeletal: Positive for arthralgias, back pain and neck pain. Pain impacts her sleep onset Neurological: Positive for headaches (not on waking). Diagnostics: Upper GI endoscopy 11/21/22, per reports: - Non-severe reflux esophagitis with no bleeding. - Congested, erythematous and eroded mucosa in the stomach. Biopsied - Fragments of gastric mucosa with focal reactive change and focal mild chronic inactive gastritis. Fluoroscopy Upper GI w/o air 09/16/21: decreased esophageal emptying with mild esophageal dysmotility and gastroesophageal reflux Noct ox BPAP 8.5/6 cm H2O 05/13/21: SpO2 belkys 76% with 7:51 mins <89%, test time 8 hr 23 mins; rAHI 28 Normal gastric emptying study 02/24/[address] 06/20/19: Biapical scarring. Few bibasilar granulomas. No interstitial changes. 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 Sitting and reading Slight chance of dozing Watching TV Slight chance of dozing Sitting inactive in a public place, such as a theater or meeting No chance of dozing As a passenger in a car for an hour without a break Slight chance of dozing Lying down to rest in the afternoon when circumstances permit No chance of dozing When sitting and talking to someone No chance of dozing When sitting quietly after lunch without alcohol No chance of dozing In a car, while stopped for a few minutes in traffic No chance of dozing Score (range: 0 - 24) 3 BP 122/70 | Pulse 75 | Temp 36.4 C (97.6 F) (Tympanic) | Resp 16 | Ht 1.575 m (5' 2") | Wt 55.3kg (122 lb) | SpO2 99% | BMI 22.31 kg/m | BSA 1.56 m Physical Exam Vitals and nursing note reviewed. Constitutional: General: She is not in acute distress. Appearance: She is not ill-appearing or diaphoretic. HENT: Mouth/Throat: Mouth: Mucous membranes are moist. Pharynx: Oropharynx is clear. No oropharyngeal exudate. Cardiovascular: Rate and Rhythm: Normal rate and regular rhythm. Heart sounds: No murmur heard. Pulmonary: Effort: Pulmonary effort is normal. No respiratory distress. Breath sounds: Normal breath sounds. Comments: Cough elicited Musculoskeletal: Right lower leg: No edema. Left lower leg: No edema. Skin: General: Skin is warm and dry. Capillary Refill: Capillary refill takes less than 2 seconds. Neurological: Mental Status: She is alert and oriented to person, place, and time. Psychiatric: Mood and Affect: Mood normal. Thought Content: Thought content normal. Assessment and Plan: BAYLEE treated with BiPAP (Primary) Nocturnal hypoxemia Severe sleep apnea based on AHI criteria associated with hypoxemia. Compliant with treatment despite shorter usage lately. Apnea is well treated on 04/28 settings with rAHI <5. Encouraged increased use to include all periods of sleep Consider repeat overnight oximetry. Aerophagia Noted near nightly, relieved easily on waking May be contributing to esophageal/JEREMIAH symptoms/cough Continue lifestyle modifications, sleeping with HOB elevated, avoiding eating/drinking 2-3 hours prior to bed Insomnia, unspecified type Avoid clock or BIPAP checking. Goal/mind set should be to return to sleep with BIPAP in place untilalarm sounds. Chronic cough Ongoing No benefit with pulmonary medications, multiple trials. Post-nasal drip Chronic despite nasal steroid and anticholinergic sprays. Gastroesophageal reflux disease with (non severe) esophagitis Neg H Pylori Continue lifestyle modifications and use of medications as prescribed. Other orders - Ipratropium Sanborn 0.03 % Nasal Solution (Atrovent); Administer 2 Sprays into nostril in the morning and 2 Sprays before bedtime. - Fluticasone Propionate 50 MCG/ACT Nasal Suspension (Flonase); ADMINISTER 2 SPRAYS INTO EACH NOSTRIL EVERY DAY Follow Up: Return in about 6 months (around 07/26/2023) for pulm/sleep return 60 mins. | For: pulm/sleep return 60 mins SHELLI [facility]s [facility] I spent a total of Greater than 55 mins (exact time 60 mins) on the date of service in preparation,delivery, and documentation of the care provided to Karen Fuller excluding any time spent in the performance of separately billed services. documented in this encounter Nursing Notes * Cristel Carrasquillo LPN - 01/24/2023 10:00 AM EDT Chief Complaint Patient presents with Follow Up Sleep Apnea Chronic Cough Apical Lung Scarring Interm History/Respiratory Symptoms Cough: both dry and productive-clear to white Hemoptysis: no Sinus Symptoms: PND Hospitalizations: no ED Trips: no Triggers: scents Nocturnal: cough CPAP/BiPAP/O2: Bipap-DME: [employer] [facility] Dyspnea Scale = Per pt none apply Patient-Entered [facility] 2019 Msp: Part I And Employment Question 01/21/2023 1:28 PM EDT - Filed by Patient Are you currently employed? No, Retired Date of longterm: Do you have a spouse who is currently employed? No, Not (single, , ) Medicare requires that we periodically ask the following questions. Are you receiving benefits under the [place] Lung Benefits Act (BL)? No Was the illness/injury due to a work-related accident/condition? No Are you receiving treatment for an injury or illness covered under no-fault (and/or medical-paymentcoverage) including premises or automobile? No Are you receiving treatment for an injury, or illness, for which another democrat may be liable? No Are you entitled to Medicare based on: Age? Yes End-stage renal disease (ESRD)? No Patient-Entered Msp: Bre-Amiffrzhdk-Ypug Primary Branch Calculation (range: 0 - 5) 1 Do you have group health plan (GHP) coverage based on your own current employment or the employmentof your spouse? No [place] Sleepiness Scale Question 01/21/2023 1:28 PM EDT - Filed by Patient What is the chance you will doze off in the following situation? Sitting and reading Slight chance of dozing Watching TV Slight chance of dozing Sitting inactive in a public place, such as a theater or meeting No chance of dozing As a passenger in a car for an hour without a break Slight chance of dozing Lying down to rest in the afternoon when circumstances permit No chance of dozing When sitting and talking to someone No chance of dozing When sitting quietly after lunch without alcohol No chance of dozing In a car, while stopped for a few minutes in traffic No chance of dozing Score (range: 0 - 24) 3 documented in this encounter Plan of Treatment Upcoming Encounters Date Type Specialty Care Team Description 02/20/2023 Laboratory Laboratory [facility], Lab Scenery [address] [place] [address] 03/10/2023 Office Visit General Surgery Parul Disla MD [address] [place] [address] 04/19/2023 Imaging Radiology 04/25/2023 Laboratory Laboratory [place] [facility] [address] [place] [address] 04/26/2023 Office Visit Internal Medicine Andressa Bernal MD [address] [place] [address] 05/02/2023 Office Visit Hematology Oncology Real Alexander MD [address] [place] [address] 07/25/2023 Office Visit Sleep Disorders [facility] [address] [facility] [address] 01/16/2024 Office Visit Dermatology Charisma Hernandez MD [address] [place] [address] Scheduled Procedures Name Priority Associated Diagnoses Date/Ti [...] D LEVEL ONCE IN A LIFETIME-USE SMARTSET# [id number] Completed 04/26/2022 COVID-19 Vaccine Completed 12/19/2022, 06/2022, [...] this encounter Medical Devices Implanted Type Area Bird Raiser Device Identifier Shelf Expiration Date Model / Serial / Lot Reflux Management System 15 - [id number] Implanted:Qty: 1 on 11/16/2020 by Jayro Olmos MD at [place] [facility] JNIsai : [employer] [id number] 05/02/2023 [facility] C15 / / [id number] documented as of this encounter Visit Diagnoses Diagnosis BAYLEE treated with BiPAP- Primary Nocturnal hypoxemia Hypoxemia Aerophagia Gastrointestinal malfunction arising from mental factors Insomnia, unspecified type Chronic cough Cough Post-nasal drip Postnasal drip Gastroesophageal reflux disease with esophagitis without hemorrhage documented in this encounter Advance Directives Documents on File Type Date Recorded Patient Swedish Masseuse Expl anation Advance Directives and Livin g Will 12/13/2016 ADVANCE DIRECTIVE Power of Blueprint Tracer 12/13/2016 POWER OF A TTORNEY Latest Code Status on File Code Status Date Activated Date Inactivated Comments Full Code 11/16/2020 3:04 PM 11/17/2020 4:16 PM This order reflects the patients wishes and were consensually agreed upon. Care Teams Truck Technician Relationship Specialty Start Date End Date Andressa Bernal MD [address] [place] [address], [place] [address] PCP - General Internal Medicine 07/30/18 documented as of this encounter
--- OUTSIDE RECORDS SUMMARY | 2023-07-05 23:15 | External Medical Summary | Summary of Care ---
Author Name Unknown Organization [facility] Address [address] [place] [address] Phone [phone] Care Team Providers Care Quill Picking Machine Operator Name Role Phone Andressa Bernal MD Primary Care Provider [phone] Reason for Visit * Reason Comments Outpatient Testing Encounter Details Date Type Department Care Team Description 01/24/2023 Laboratory Laboratory [facility] [place] [address] [place] [address] [facility] [address] [facility] [place] [address] Essential thrombocytosis (HCC); Iritis; Unspecified donor, other blood Allergies Active Allergy [...] needed for Heartburn. Taking 6-10. 0 Active Yhxfdyr-Vorqbzmhob-Zh tamin D 250-107-500 MG-MG-UNIT Oral Tablet Chewable [...] WEEK 135 Capsule 3 01/23/2023 Active Ipratropium [place] 0.03 % Nasal Solution (Atrovent) Administer 2 [...] -2.3 left hip,dec 4% from prior--HR--[facility] to [facility] Paraesophageal hernia 11/16/2020 Cervicalgia 04/22/2020 History of [...] mRNA, LNP-s, No Pre serve, 2-Dose Series (Niche) 12/19/2022,12/06/2021,05/24/2021,10/14,09/23/2020 Pneumococcal Conjugate Vacc, 13 Valent (Prevnar) [...] Specialty Care Team Description 02/20/2023 Laboratory Laboratory [facility] [address] [facility] [place] [address] 03/10/2023 Office Visit General Surgery Parul Disla MD [address] [place] [address] 04/19/2023 Imaging Radiology 04/25/2023 Laboratory Laboratory [facility] [address] [facility] [place] [address] 04/26/2023 Office Visit Internal Medicine Andressa Bernal MD 200 [place] [address] 05/02/2023 Office Visit Hematology Oncology Real Alexander MD 200 [facility] [place] [address] 07/25/2023 Office Visit Sleep Disorders Mandy Kim CRNP [address] [place] [address] 01/16/2024 Office Visit Dermatology Charisma Hernandez MD 200 [facility] [place] [address] Pending Results Name Type Priority Associated Diagnoses Date /Time SYSTEMIC LUPUS ERYTHEMATOSUS REFLEX PROFILE Lab Routine Iritis 01/24/2023 12:54 PM EDT ANGIOTENSIN CONVERTING ENZYME Lab Routine Iritis 01/24/2023 12:54 PM EDT RHEUMATOID FACTOR Lab Routine Iritis 01/24/2023 12:54 PM EDT CYCLIC CITRULLINATED PEPTIDE IGG ANTIBODY Lab Routine Iritis 01/24/2023 12:54 PM EDT HLA B27 ANTIGEN, FLOW CYTOMETRY Lab Routine Iritis Unspecified donor, other blood 01/24/2023 12:54 PM EDT ANTINUCLEAR ANTIBODY (JOS) SCREEN, SHAMIKA Lab Routine Iritis 01/24/2023 12:54 PM EDT Scheduled Procedures Name Priority Associated [...] D LEVEL ONCE IN A LIFETIME-USE SMARTSET# [id number] Completed 04/26/2022 COVID-19 Vaccine Completed 12/19/2022, 06/2022, [...] this encounter Medical Devices Implanted Type Area Strings Teacher Device Identifier Shelf Expiration Date Model / Serial / Lot Reflux Management System 15 - [id number] Implanted:Qty: 1 on 11/16/2020 [place]ro Olmos [place] [facility] [place] [employer] [id number] 05/02/2023 [facility] C15 / / [id number] documented as of this encounter Procedures Procedure Name Priority Date/Time Associated Diagnosis Comments DIFFERENTIAL, AUTOMATED STAT 01/24/2023 12:54 PM EDT Essential thrombocytosis (HCC) CBC WITH WBC DIFFERENTIAL STAT 01/24/2023 12:54 PM EDT Essential thrombocytosis (HCC) CBC STAT 01/24/2023 12:54 PM EDT Essential thrombocytosis (HCC) documented in this encounter Results * (ABNORMAL) DIFFERENTIAL, AUTOMATED (01/24/2023 12:54 PM EDT) WBC 5.69 4.00 - 10.80 K/uL 01/24/2023 1:09 PM EDT [facility]02 Neutrophils % 74.6 40.0 - 75.0 % 01/24/2023 1:09 PM EDT [facility] 56-02 Lymphocytes % 17.8(L) 18.0 - 42.0 % 01/24/2023 1:09 PM EDT [facility] 56-02 Monocytes % 6.2 1.0 - 11.0 % 01/24/2023 1:09 PM EDT [facility] 56-02 Eosinophils % 0.9 0.0 - 6.0 % 01/24/2023 1:09 PM EDT [facility] 56-02 Basophils % 0.5 0.0 - 2.0 % 01/24/2023 1:09 PM EDT [facility]-02 Absolute Neutrophils 4.25 1.80 - 7.70 K/uL 01/24/2023 1:09 PM EDT [facility] 56-02 Absolute Lymphocytes 1.01 1.00 - 4.80 K/ul 01/24/2023 1:09 PM EDT [facility] 56 Absolute Monocytes 0.35 0.00 - 1.10 K/uL 01/24/2023 1:09 PM EDT [facility] 56 Absolute Eosinophils 0.05 0.00 - 0.70 K/uL 01/24/2023 1:09 PM EDT [facility] 56 Absolute Basophils 0.03 0.00 - 0.20 K/uL 01/24/2023 1:09 PM EDT [facility] 56 Blood Venous blood specimen / Unknown Venipuncture / Unknown 01/24/2023 12:54 PM EDT 01/24/2023 12:54 PM EDT Real Alexander MD LAB BLOOD ORDERA BLES [facility] [address] [place] [address] * CBC (01/24/2023 12:54 PM EDT) WBC 5.69 4.00 - 10.80 K/uL 01/24/2023 1:09 PM EDT [facility] 56 RBC 4.05 3.85 - 5.15 M/uL 01/24/2023 1:09 PM EDT [facility] 56 HGB 14.8 12.0 - 15.3 g/dL 01/24/2023 1:09 PM EDT [facility] 56 HCT 43.2 36.0 - 45.2 % 01/24/2023 1:09 PM EDT [facility] 56 MCV 106.7 81.5 - 97.5 fL 01/24/2023 1:09 PM EDT [facility] 56 MCH 36.5 27.0 - 34.0 pg 01/24/2023 1:09 PM EDT [facility] 56 MCHC 34.3 32.0 - 36.0 g/dL 01/24/2023 1:09 PM EDT [facility] 56 RDW 12.1 11.5 - 15.5 % 01/24/2023 1:09 PM EDT [facility] PLT 302 140 - 400 K/uL 01/24/2023 1:09 PM EDT [facility] 56 MPV 9.8 6.6 - 11.1 fL 01/24/2023 1:09 PM EDT [facility] 56 Blood Venous blood specimen / Unknown Venipuncture / Unknown 01/24/2023 12:54 PM EDT 01/24/2023 12:54 PM EDT Real Alexander MD LAB BLOOD ORDERA BLES [facility] [address] documented in this encounter Visit Diagnoses Diagnosis Essential thrombocytosis (HCC) Essential thrombocythemia Iritis Unspecified iridocyclitis Unspecified donor, other blood documented in this encounter Advance Directives Documents on File Type Date Recorded Patient Religious Assistant Expl anation Advance Directives and Livin g Will 12/13/2016 ADVANCE DIRECTIVE Power of Visually Impaired Teacher 12/13/2016 POWER OF A TTORNEY Latest Code Status on File Code Status Date Activated Date Inactivated Comments Full Code 11/16/2020 3:04 PM 11/17/2020 4:16 PM This order reflects the patients wishes and were consensually agreed upon. Care Teams Quill Picking Machine Operator Relationship Specialty Start Date End Date Andressa Bernal MD 200 [facility] [place] [address] PCP - General Internal Medicine 07/30/18 documented as of this encounter
--- OUTSIDE RECORDS SUMMARY | 2023-07-05 23:15 | External Medical Summary ---
Author Name Unknown Address Unknown Organization [id number]:[facility] [place] [address] Laboratory Report Ordering Provider Test Date Status DILEEP GIFFORD 01/24/2023 12:54:35 Final Observation Date Value Abnormality Reference (Units ) Status WBC, Total 01/24/2023 12:54:35 5.69 4.00-10.8 0 (K/uL) Final RBC 01/24/2023 12:54:35 4.05 3.85-5.15 (M/uL) Final Hemoglobin 01/24/2023 12:54:35 14.8 12.0-15.3 (g/dL) Final HCT 01/24/2023 12:54:35 43.2 36.0-45.2 (%) Final MCV 01/24/2023 12:54:35 106.7 81.5-97.5 (fL) Final MCH 01/24/2023 12:54:35 36.5 27.0-34.0 (pg) Final MCHC 01/24/2023 12:54:35 34.3 32.0-36.0 (g/dL) Final RDW 01/24/2023 12:54:35 12.1 11.5-15.5 (%) Final Platelets 01/24/2023 12:54:35 302 140-400 (K /uL) Final MPV 01/24/2023 12:54:35 9.8 6.6-11.1 ( fL) Final Performing Location [facility] [place] [address]
--- OUTSIDE RECORDS SUMMARY | 2023-07-05 23:15 | External Medical Summary ---
Author Name Unknown Address Unknown Organization [id number]:[facility] [place] [address] Laboratory Report Ordering Provider Test Date Status DILEEP GIFFORD 01/24/2023 12:54:35 Final Observation Date Value Abnormality Reference (Units ) Status SYNC LEUKOCYTES IN BLOOD BY AUTOMATED COUNT 01/24/2023 12:54:35 5.69 4.00-10.80 (K/uL) Final Segs 01/24/2023 12:54:35 74.6 40.0-75.0 (%) Final Lymphs % 01/24/2023 12:54:35 17.8 Below low normal 18.0-42.0 (%) Final Monos 01/24/2023 12:54:35 6.2 1.0-11.0 (%) Final Eosinophils 01/24/2023 12:54:35 0.9 0.0-6.0 (%) Final Basos 01/24/2023 12:54:35 0.5 0.0-2.0 (%) Final Absolute Segs 01/24/2023 12:54:35 4.25 1.80-7.70 (K/uL) Final Lymphs, absolute 01/24/2023 12:54:35 1.01 1.00-4.80 (K/ul) Final Monos, Abs 01/24/2023 12:54:35 0.35 0.00-1.10 (K/uL) Final Eos, Abs 01/24/2023 12:54:35 0.05 0.00-0.70 (K/uL) Final Basos, Abs 01/24/2023 12:54:35 0.03 0.00-0.20 (K/uL) Final Performing Location [facility] [place] [address]
--- OUTSIDE RECORDS SUMMARY | 2023-07-05 23:15 | External Medical Summary ---
Author Name Unknown Address Unknown Organization [id number]:[facility] [place] [facility] [address] [facility] [address] Laboratory Report Ordering Provider Test Date Status JOSSELYN GIBSON 01/24/2023 12:54:35 Final Observation Date Value Abnormality Reference (Units ) Status CRP, low-sensitivity 01/24/2023 12:54:35 <3 <=5 (mg/L) Final Performing Location [facility] - [address] [facility] [address]
--- OUTSIDE RECORDS SUMMARY | 2023-07-05 23:15 | External Medical Summary | Summary of Care ---
Author Name Unknown Organization [facility] Address [address] [facility] [place] [address] Phone [phone] Care Team Providers Care Barrel Tester Name Role Phone Andressa Bernal MD Primary Care Provider [phone] Reason for Visit * Reason Onset Date Comments Appointment 01/05/2023 Encounter Details Date Type Department Care Team Description 01/05/2023 Telephone Rheumatology [facility] [place] [address] [place] [address] Antionette Green PA-C [address] [place] [address] Appointment Allergies Active Allergy Reactions Severity Noted Date Comments Adhesive Tape Rash 04/03/2019 Molds & Smuts Cough 07/30/2018 documented as of this encounter (statuses as of 01/05/2023) Medications Medication Sig Dispensed Refills Start Date End Date Status Multiple Vitamin (MULTI-DAY) TabletIndications:Men opause Take 1 Tab by mouth daily. 0 Active Tums 500 MG Oral Tablet Chewable Take 2 Tablets by mouth every 4 hours as needed for Heartburn. Taking 6-10. 0 Active Peqetod-Grrtpujhmb-Br tamin D 250-107-500 MG-MG-UNIT Oral Tablet Chewable [...] bedtime. 180 Capsule 3 04/26/2022 Active Ipratropium [place] 0.03 % Nasal Solution (Atrovent) ADMINISTER INTO [...] the morning. 90 Capsule 3 12/19/2022 Active documented as of this encounter (statuses as of 01/05/2023) Active Problems Problem Noted Date Senile osteoporosis [...] as of this encounter (statuses as of 01/05/2023) Resolved Problems Problem Noted Date Resolved Date Rhinitis, nonallergic 10/05/2018 07/02/2019 Overview: acute Hypersomnolence 09/19/2018 09/28/2020 Overview: 08/07-+snoring,fatigue-- nocturnal oximetry shows desaturation to 89 % with pattern of sleep disordered breathing.,Needs sleep clinic eval- pulmonary referral placed. Tinnitus, subjective, bilateral 08/02/2018 07/02/2019 Chronic rhinitis 07/30/2018 10/05/2018 documented as of this encounter (statuses as of 01/05/2023) Immunizations Name Administration Dates Next Due COVID-19 mRNA, LNP-s, No Pre serve, 2-Dose Series (Pfizer) 12/06/2021,05/24/2021,10/14/2020,09/23 Pneumococcal Conjugate Vacc, 13 Valent (Prevnar) 05/21/2017,05/13/2016,05/11/2009 [...] * Telephone Encounter - BAYLEE Nieto - 01/05/2023 8:39 AM EDT Pt needs to be seen for Iritis per Antionette Green. This would be a new pt appt since it is a new Dx.No referral in system yet but pt needs scheduled. LM for pt to call to schedule. There is an opening in [facility] on 01/10 at 9:50 for a new pt with Antionette. documented in this encounter Plan of Treatment Upcoming Encounters Date Type Specialty Care Team Description 01/10/2023 Office Visit Rheumatology Antionette Green PA-C [address] [place] [address] 01/19/2023 Laboratory [facility] [address] [place] [address] 01/24/2023 Office Visit Sleep Disorders Mandy Kim, SHELLI [address] [place] [address] 01/27/2023 Telemedicine General Surgery Immanuel Benavides PA-C [address] [place] [address] 02/20/2023 Laboratory [facility] [address] [place] [address] 04/19/2023 Imaging Radiology 04/25/2023 Laboratory [facility], [address] [place] [address] 04/26/2023 Office Visit Internal Medicine Andressa Bernal MD 200 [facility] [address] 05/02/2023 Office Visit Hematology Oncology Real Alexander MD 200 [place] [address] 01/16/2024 Office Visit Dermatology Charisma Hernandez MD 200 [facility] [place] [address] Scheduled Procedures Name Priority Associated Diagnoses Date/Ti [...] D LEVEL ONCE IN A LIFETIME-USE SMARTSET# [id number] Completed 04/26/2022 COVID-19 Vaccine Completed 05/31/2022, , 05/24/2021, Additional history exists GARDASIL-HPV IMMUNIZATION SERIES Aged Out No longer eligible based on patient's age to complete this topic Hepatitis B Aged Out No longer eligi ble based on patient's age to complete this topic MENINGOCOCCAL (MENACTRA/MENVEO) Aged Out No longer eligible based on patient's age to complete this topic documented as of this encounter Medical Devices Implanted Type Area Dumper Mold Cleaner Device Identifier Shelf Expiration Date Model / Serial / Lot Reflux Management System 15 - [id number] Implanted:Qty: 1 on 11/16/2020 by Jayro Olmos MD at [facility] [employer] : [employer] [id number] 05/02/2023 [employer] C15 / / [id number] documented as of this encounter Advance Directives Documents on File Type Date Recorded Patient Rehabilitation Clerk Expl anation Advance Directives and Livin g Will 12/13/2016 ADVANCE DIRECTIVE Power of Shirt Turner 12/13/2016 POWER OF A TTORNEY Latest Code Status on File Code Status Date Activated Date Inactivated Comments Full Code 11/16/2020 3:04 PM 11/17/2020 4:16 PM This order reflects the patients wishes and were consensually agreed upon. Care Teams Barrel Tester Relationship Specialty Start Date End Date Andressa Bernal MD [address] [place] [address] PCP - General Internal Medicine 07/30/18 documented as of this encounter
--- OUTSIDE RECORDS SUMMARY | 2023-07-05 23:15 | External Medical Summary ---
Author Name Unknown Address Unknown Organization K09:[facility] [place] [address] Laboratory Report Ordering Provider Test Date Status DILEEP GIFFORD 02/20/2023 13:06:20 Final Observation Date Value Abnormality Reference (Units ) Status SYNC LEUKOCYTES IN BLOOD BY AUTOMATED COUNT 02/20/2023 13:06:20 5.82 4.00-10.80 (K/uL) Final Segs 02/20/2023 13:06:20 71.7 40.0-75.0 (%) Final Lymphs % 02/20/2023 13:06:20 20.8 18.0-42.0 (%) Final Monos 02/20/2023 13:06:20 5.8 1.0-11.0 (%) Final Eosinophils 02/20/2023 13:06:20 1.0 0.0-6.0 (%) Final Basos 02/20/2023 13:06:20 0.7 0.0-2.0 (%) Final Absolute Segs 02/20/2023 13:06:20 4.17 1.80-7.70 (K/uL) Final Lymphs, absolute 02/20/2023 13:06:20 1.21 1.00-4.80 (K/ul) Final Monos, Abs 02/20/2023 13:06:20 0.34 0.00-1.10 (K/uL) Final Eos, Abs 02/20/2023 13:06:20 0.06 0.00-0.70 (K/uL) Final Basos, Abs 02/20/2023 13:06:20 0.04 0.00-0.20 (K/uL) Final Performing Location [facility] [place] [address]
--- OUTSIDE RECORDS SUMMARY | 2023-07-05 23:15 | External Medical Summary | Summary of Care ---
Author Name Unknown Organization [facility] Address [address] [place] [address] Phone [phone] Care Team Providers Care Entry Level Truck Driver Name Role Phone Andressa Bernal MD Primary Care Provider [phone] Reason for Visit * Reason Comments Outpatient Testing Encounter Details Date Type Department Care Team Description 02/20/2023 Laboratory Laboratory [facility] [place] [address] [place] [address] [facility] 200 [facility] [place] [address] Essential thrombocytosis (HCC) Allergies Active Allergy Reactions Severity Noted Date Comments Adhesive Tape Rash 04/03/2019 Molds & Smuts Cough 07/30/2018 documented as of this encounter (statuses as of 02/20/2023) Medications Medication Sig Dispensed Refills Start Date End Date Status Multiple Vitamin (MULTI-DAY) TabletIndications:Men opause Take 1 Tab by mouth daily. 0 Active Tums 500 MG Oral Tablet Chewable Take 2 Tablets by mouth every 4 hours as needed for Heartburn. Taking 6-10. 0 Active Zbtnsfo-Wstrgubvnj-Gd tamin D 250-107-500 MG-MG-UNIT Oral Tablet Chewable [...] WEEK 135 Capsule 3 01/23/2023 Active Ipratropium [place] 0.03 % Nasal Solution (Atrovent) Administer 2 Sprays into nostril in the morning and 2 Sprays before bedtime. 90 mL 3 01/24/2023 Active Fluticasone Propionate 50 MCG/ACT Nasal Suspension (Flonase) ADMINISTER 2 SPRAYS INTO EACH NOSTRIL EVERY DAY 48 mL 3 01/24/2023 Active documented as of this encounter (statuses as of 02/20/2023) Active Problems Problem Noted Date Senile osteoporosis [...] as of this encounter (statuses as of 02/20/2023) Resolved Problems Problem Noted Date Resolved Date Rhinitis, nonallergic 10/05/2018 07/02/2019 Overview: acute Hypersomnolence 09/19/2018 09/28/2020 Overview: 19-+snoring,fatigue-- nocturnal oximetry shows desaturation to 89 % with pattern of sleep disordered breathing.,Needs sleep clinic eval- pulmonary referral placed. Tinnitus, subjective, bilateral 08/02/2018 07/02/2019 Chronic rhinitis 07/30/2018 10/05/2018 documented as of this encounter (statuses as of 02/20/2023) Immunizations Name Administration Dates Next Due COVID-19 mRNA, LNP-s, No Pre serve, 2-Dose Series ([facility]) 12/19/2022,12/06/2021,05/24/2021,10/14,09/23/2020 Pneumococcal Conjugate Vacc, 13 Valent (Prevnar) [...] Encounters Date Type Specialty Care Team Description 03/10/2023 Office Visit General Surgery Parul Disla MD [address] [place] [address] 04/19/2023 Imaging Radiology 04/25/2023 Laboratory Laboratory [place], [facility] Sc[address] [place] [address] 04/26/2023 Office Visit Internal Medicine Andressa Bernal MD [address] [place] [address] 05/02/2023 Office Visit Hematology Oncology Real Alexander MD [address] [place] [address] 07/25/2023 Office Visit Sleep Disorders Mandy Kim CRNP [address] [place] [address] 01/16/2024 Office Visit Dermatology Charisma Hernandez MD Scheduled Procedures Name Priority Associated Diagnoses [...] D LEVEL ONCE IN A LIFETIME-USE SMARTSET# [id number] Completed 04/26/2022 COVID-19 Vaccine Completed 12/19/2022, 06/2022, [...] this encounter Medical Devices Implanted Type Area Logistics Assistant Device Identifier Shelf Expiration Date Model / Serial / Lot Reflux Management System 15 - [id number] Implanted:Qty: 1 on 11/16/2020 by Jayro Olmos MD at [facility] [employer] : [employer] [id number] 05/02/2023 [facility] C15 / / [id number] documented as of this encounter Procedures Procedure Name Priority Date/Time Associated Diagnosis Comments DIFFERENTIAL, AUTOMATED STAT 02/20/2023 1:06 PM EDT Essential thrombocytosis (HCC) CBC WITH WBC DIFFERENTIAL STAT 02/20/2023 1:06 PM EDT Essential thrombocytosis (HCC) CBC STAT 02/20/2023 1:06 PM EDT Essential thrombocytosis (HCC) documented in this encounter Results * DIFFERENTIAL, AUTOMATED (02/20/2023 1:06 PM EDT) WBC 5.82 4.00 - 10.80 K/uL 02/20/2023 1:20 PM EDT [facility] 56-02 Neutrophils % 71.7 40.0 - 75.0 % 02/20/2023 1:20 PM EDT [facility] 56-02 Lymphocytes % 20.8 18.0 - 42.0 % 02/20/2023 1:20 PM EDT [facility] 56-02 Monocytes % 5.8 1.0 - 11.0 % 02/20/2023 1:20 PM EDT [facility] 56-02 Eosinophils % 1.0 0.0 - 6.0 % 02/20/2023 1:20 PM EDT [facility] 56-02 Basophils % 0.7 0.0 - 2.0 % 02/20/2023 1:20 PM EDT [facility] 56-02 Absolute Neutrophils 4.17 1.80 - 7.70 K/uL 02/20/2023 1:20 PM EDT [facility] 56-02 Absolute Lymphocytes 1.21 1.00 - 4.80 K/ul 02/20/2023 1:20 PM EDT [facility] 56-02 Absolute Monocytes 0.34 0.00 - 1.10 K/uL 02/20/2023 1:20 PM EDT [facility] 56-02 Absolute Eosinophils 0.06 0.00 - 0.70 K/uL 02/20/2023 1:20 PM EDT [facility] 56-02 Absolute Basophils 0.04 0.00 - 0.20 K/uL 02/20/2023 1:20 PM EDT [facility] 56-02 Blood Venous blood specimen / Unknown Venipuncture / Unknown 02/20/2023 1:06 PM EDT 02/20/2023 1:06 PM EDT Real Alexander MD LAB BLOOD ORDERA BLES [facility] 56-[address] [place] [address] * CBC (02/20/2023 1:06 PM EDT) WBC 5.82 4.00 - 10.80 K/uL 02/20/2023 1:20 PM EDT [facility] 5602 RBC 4.22 3.85 - 5.15 M/uL 02/20/2023 1:20 PM EDT [facility] 5602 HGB 14.9 12.0 - 15.3 g/dL 02/20/2023 1:20 PM EDT [facility] 5602 HCT 45.2 36.0 - 45.2 % 02/20/2023 1:20 PM EDT [facility] 56 MCV 107.1 81.5 - 97.5 fL 02/20/2023 1:20 PM EDT [facility] 5602 MCH 35.3 27.0 - 34.0 pg 02/20/2023 1:20 PM EDT [facility] MCHC 33.0 32.0 - 36.0 g/dL 02/20/2023 1:20 PM EDT [facility] 5602 RDW 12.0 11.5 - 15.5 % 02/20/2023 1:20 PM EDT [facility] 5602 PLT 380 140 - 400 K/uL 02/20/2023 1:20 PM EDT [facility] 5602 MPV 9.5 6.6 - 11.1 fL 02/20/2023 1:20 PM EDT [facility] 5602 Blood Venous blood specimen / Unknown Venipuncture / Unknown 02/20/2023 1:06 PM EDT 02/20/2023 1:06 PM EDT Real Alexander MD LAB BLOOD ORDERA BLES [place] [address] [place] [address] documented in this encounter Visit Diagnoses Diagnosis Essential thrombocytosis (HCC) Essential thrombocythemia documented in this encounter Advance Directives Documents on File Type Date Recorded Patient School Based Therapist Expl anation Advance Directives and Mireya Harvey 12/13/2016 ADVANCE DIRECTIVE Power of Airplane Engineer 12/13/2016 POWER OF A TTORNEY Latest Code Status on File Code Status Date Activated Date Inactivated Comments Full Code 11/16/2020 3:04 PM 11/17/2020 4:16 PM This order reflects the patients wishes and were consensually agreed upon. Care Teams Entry Level Truck Driver Relationship Specialty Start Date End Date Andressa Bernal MD 200 [place] [address] PCP - General Internal Medicine 07/30/18 documented as of this encounter
[2023-07-06] MEDS: SODIUM CHLORIDE 0.9% 1,000 ML IV SCH (00:21)
[2023-07-06] MEDS: APIXABAN 5 MG TABLET PO SCH (08:54)
[2023-07-06] MEDS: FLUTICASONE PROPIONATE NA SPR 16 GM BTL SCH (08:54)
[2023-07-06] MEDS: ASPIRIN 81 MG ECTAB PO SCH (08:54)
[2023-07-06] MEDS: MULTIVITAMIN TAB PO SCH (08:54)
[2023-07-06] MEDS: PANTOprazole 40 MG TAB PO SCH (08:54)
[2023-07-06] MEDS: POLYETHYLENE (MIRALAX) 17 GM PACK PO SCH (08:55)
[2023-07-06 09:15] LABS: BUN Creatinine Ratio 10.9 (10-20); Calcium 7.7 mg/dl (8.6-10.3); Creatinine Clr Calc Pharmacy 59.1 ml/min; Est GFR (African American) 100.5 ml/min; Est GFR (Non-African American) 86.7 ml/min; Potassium 3.4 mmol/L (3.5-5.1)
--- NOTE | 2023-07-06 18:08 | Hospitalist Progress Note ---
Date of Service July 06, 2023 Assessment & Plan (1) Non-ST elevation [place] (NSTEMI): Plan: 77-year-old female with past med significant for paraesophageal hernia s/p repair, obstructive sleep apnea, GERD, mixed stress and urge incontinence, essential thrombocytosis, history of right breast cancer, history of basal cell carcinoma s/p excision presents with abdominal pain and found to have elevated troponin. NON-ST ELEVATED [place] Initial troponin 109.Troponin trending up to 299 and 470 Troponins pending those are taken at 8:17 AM and 3:27 PM EKG sinus bradycardia but no other acute findings Repeat EKG did not show any change Patient is already on Eliquis who is has been on hold and the patient is started with intravenous heparin Close monitoring telemetry Echo of the heart showed-LV is normal in size the LV all motion is normal EF 60 to 65%, right ventricular systolic function normal, left atrial size is normal and right atrial size is normal. Appreciate cardiology input and recommendation Has been on intravenous heparin and oral aspirin Going to have cardiac cath tomorrow 07/05 s/p Cardiac Cath: No coronary artery disease Started on aspirin, Toprol XL, decrease Crestor-continue as an outpatient Eliquis resumed Follow-up with cardiology service in 1-2 weeks EPIGASTRIC PAIN, possible GERD, constipation related CT scan showing possible ileus versus enteritis 07/05 Liver US: unremarkable GI consulted: possible GERD, constipation increase Protonix to BID start Miralax daily Follow-up as an outpatient Obstructive sleep apnea CPAP nightly History of thrombocytosis On hydroxyurea History of right breast cancer S/p right partial mastectomy and chemo radiation 1993 History of DVT On Eliquis Disposition Discharge to home Follow-up with PCP in 1 week Follow-up with deputy coroner in 1 to 2 weeks Follow-up with GI for outpatient EGD in 1 to 2 months Admission and Anticipated Discharge Date Admission Date: July 03, 2023 Subjective Follow-up for epigastric pain, etc. Seen sitting up in bed, comfortable, not in distress States she feels fine overall, still has some mild epigastric discomfort but no chest pain, palpitations, dizziness Positive bowel movements No any other new symptoms States she is ready and would like to be discharged today Review of Systems Review of Systems: all noted and negative except for above Physical Exam Physical Exam: General- oriented x 3, not in distress, speaks in sentences with no effort or accessory muscle use Eyes- anicteric Neck- no JVD Lungs- clear breath sounds bilaterally, no rales/wheezes Heart- normal rate, regular rhythm; no murmurs Abdomen- normal bowel sounds, nondistended, soft, nontender Extremities- no pretibial edema, no calf tenderness Neuro- alert, oriented x 3; no gross focal neurologic deficits Skin- warm & dry Results & Data Results & Data Vital Signs (Past 12 Hours) Vital Signs Temp Pulse Pulse Resp BP Pulse Ox O2 Del Method 07/06/23 11:15 36.7 C 70 18 128/71 95 07/06/23 09:42 87 07/06/23 07:01 36.7 C 70 18 128/71 95 Room Air all noted and reviewed including below
--- NOTE | 2023-07-06 18:16 | Discharge Summary ---
Discharge Summary Date of Service July 06, 2023 Notes For Next Care Provider Medication Changes From Visit New medications: Aspirin 81 mg p.o. daily Toprol-XL 12.5 mg p.o. daily Decrease Crestor to 5 mg p.o. daily Admission HPI Per Admitting Provider 77-year-old female with past med history significant for paraesophageal hernia s/p repair, obstructive sleep apnea, GERD, mixed stress and urge incontinence, essential thrombocytosis, history of right breast cancer, history of basal cell carcinoma s/p excision presents with abdominal pain. Patient states pain started after lunch in the umbilical region and then in right lower quadrant 10/10 in severity. Associated with some nausea. No diarrhea. Denies any chest pain or shortness of breath. No fevers. Has some runny nose. Currently pain improved. Currently resting comfortably and hemodynamically stable. Past medical history. As mentioned above Past surgical history. Right breast biopsy. Left breast biopsy. Colonoscopy. EGD. Laparoscopic insertion of esophageal sphincter. Right partial mastectomy. Paraesophageal hernia repair. Right breast radiation treatment. [place] lymph node biopsy. Social history. Quit smoking 1973. Smoked 0.1 packs a day for 10 years. Alcohol socially. No drug use. Family history. Daughter has allergies. Salience Sjogren's. Mother had breast cancer. Hypertension. Stroke. Principal Dx & Hospital Course #1 = Principal Diagnosis (1) Non-ST elevation [place] (NSTEMI): 77-year-old female with past med significant for paraesophageal hernia s/p repair, obstructive sleep apnea, GERD, mixed stress and urge incontinence, essential thrombocytosis, history of right breast cancer, history of basal cell carcinoma s/p excision presents with abdominal pain and found to have elevated troponin. NON-ST ELEVATED [place] Initial troponin 109.Troponin trending up to 299 and 470 Troponins pending those are taken at 8:17 AM and 3:27 PM EKG sinus bradycardia but no other acute findings Repeat EKG did not show any change Patient is already on Eliquis who is has been on hold and the patient is started with intravenous heparin Close monitoring telemetry Echo of the heart showed-LV is normal in size the LV all motion is normal EF 60 to 65%, right ventricular systolic function normal, left atrial size is normal and right atrial size is normal. Appreciate cardiology input and recommendation Has been on intravenous heparin and oral aspirin Going to have cardiac cath tomorrow 07/05 s/p Cardiac Cath: No coronary artery disease Started on aspirin, Toprol XL, decrease Crestor-continue as an outpatient Eliquis resumed Follow-up with cardiology service in 1-2 weeks EPIGASTRIC PAIN, possible GERD, constipation related CT scan showing possible ileus versus enteritis 07/05 Liver US: unremarkable GI consulted: possible GERD, constipation increase Protonix to BID start Miralax daily Follow-up as an outpatient Obstructive sleep apnea CPAP nightly History of thrombocytosis On hydroxyurea History of right breast cancer S/p right partial mastectomy and chemo radiation 1993 History of DVT On Eliquis Disposition Discharge to home Follow-up with PCP in 1 week Follow-up with die maker apprentice in 1 to 2 weeks Follow-up with GI for outpatient EGD in 1 to 2 months Discharge Exam General- oriented x 3, not in distress, speaks in sentences with no effort or accessory muscle use Eyes- anicteric Neck- no JVD Lungs- clear breath sounds bilaterally, no rales/wheezes Heart- normal rate, regular rhythm; no murmurs Abdomen- normal bowel sounds, nondistended, soft, nontender Extremities- no pretibial edema, no calf tenderness Neuro- alert, oriented x 3; no gross focal neurologic deficits Skin- warm & dry Updated Medication List Medication Instructions Recorded Confirmed Type apixaban 5 mg tablet (Eliquis) 5 mg PO AMHS 07/03/23 07/03/23 History dicyclomine 10 mg capsule 10 mg PO [facility] PRN Abdominal 07/03/23 07/03/23 History Discomfort fluticasone propionate 50 2 spray intranasal DAILY 07/03/23 07/03/23 History mcg/actuation nasal spray,suspension hydroxyurea 500 mg capsule See Rx Instructions .Route .COMPLEX 07/03/23 07/03/23 History ipratropium bromide 21 mcg (0.03 2 spray intranasal AMHS PRN 07/03/23 07/03/23 History %) nasal spray rhinitis multivitamin (Multiple Vitamins 1 tab PO DAILY 07/03/23 07/03/23 History tablet) aspirin 81 mg tablet,delayed 81 mg PO DAILY 30 days #30 tabs 07/06/23 Rx release metoprolol succinate 25 mg 12.5 mg (1/2 x 25 mg) PO DAILY 30 07/06/23 Rx tablet,extended release 24 hr days #15 tabs (Toprol XL) pantoprazole 40 mg tablet,delayed 40 mg PO BID 30 days #60 tabs 07/06/23 Rx release polyethylene glycol 3350 17 gram 17 g PO DAILY 30 days #30 ea 07/06/23 Rx oral powder packet (Miralax) rosuvastatin 5 mg tablet 5 mg PO DAILY #30 tabs 07/06/23 Rx Hospital Stay Data Consultations 07/03/23 19:31 ED Decision to Admit Stat 07/04/23 08:00 Consult Cardiology Routine 07/05/23 11:50 Consult Gastroenterology Routine Procedures Performed Operation Date: 07/05/23 08:00 Actual Procedures p Cineradiography w/Routine Exam - Clarence Chappell MD, PhD p Cath, Left with Cors and Vent - Clarence Chappell MD, PhD Diagnostic Imagining Performed Laboratory Results WBC 6.22 K/ul (4.8-10.8) 07/04/23 20: RBC 3.75 M/uL (4.20-5.40) L 07/04/23 20: Hgb 12.8 g/dl (12.0-16.0) 07/04/23 20:21 Hct 38.8 % (37.0-47.0) 07/04/23 20: MCV 103.5 fL (80.0-100.0) H 07/04/23 20:21 MCH 34.1 pg (25.0-34.0) H 07/04/23 20:21 MCHC 33.0 g/dL (32.0-36.0) 07/04/23 20: RDW Std Deviation 53.1 fL (36.4-46.3) H 07/04/23 20:21 RDW Coeff of Melissa 14.0 % (11.5-14.5) 07/04/23 20: Plt Count 341 K/uL (130-400) 07/04/23 20: MPV 9.3 fL (9.4-12.4) L 07/04/23 20:21 Immature Gran % (Auto) 0.6 % 07/04/23 20:21 Neut % (Auto) 76.9 % 07/04/23 20: Lymph % (Auto) 16.6 % 07/04/23 20: Quay % (Auto) 5.1 % 07/04/23 20:21 Eos % (Auto) 0.3 % 07/04/23 20:21 Baso % (Auto) 0.5 % 07/04/23 20:21 Neut # (Auto) 4.78 K/uL (1.40-6.50) 07/04/23 20:21 Lymph # (Auto) 1.03 K/uL (1.20-3.40) L 07/04/23 20:21 Quay # (Auto) 0.32 K/uL (0.11-0.59) 07/04/23 20:21 Eos # (Auto) 0.02 K/uL (0.00-0.50) 07/04/23 20:21 Baso # (Auto) 0.03 K/uL (0.00-0.20) 07/04/23 20:21 Immature Gran # (Auto) 0.04 K/uL (0.01-0.20) 07/04/23 20:21 PT 11.5 Seconds (9.0-12.0) 07/04/23 20:21 INR 1.1 (0.9-1.1) 07/04/23 20:21 APTT 34.2 Seconds (21.0-31.0) H 07/05/23 03:29 PTT Ratio 1.2 07/05/23 03:29 Sodium 142 mmol/L (136-145) 07/06/23 08:28 Potassium 3.4 mmol/L (3.5-5.1) L 07/06/23 08:28 Chloride 110 mmol/L (98-107) H 07/06/23 08:28 Carbon Dioxide 26 mmol/L (21-32) 07/06/23 08:28 Anion Gap 6 (3-11) 07/06/23 08:28 BUN 7 mg/dl (6-23) 07/06/23 08:28 Creatinine 0.64 mg/dl (0.6-1.2) 07/06/23 08:28 Est Cr Clr Drug Dosing 59.1 ml/min 07/06/23 08:28 Est GFR ( Amer) 100.5 ml/min 07/06/23 08:28 Est GFR (Non-Af Amer) 86.7 ml/min 07/06/23 08:28 BUN/Creatinine Ratio 10.9 (10-20) 07/06/23 08:28 Glucose 144 mg/dl (70-99(Fasting)) H 07/06/23 08:28 Calcium 7.7 mg/dl (8.6-10.3) L 07/06/23 08:28 Magnesium 1.8 mg/dl (1.7-2.4) 07/04/23 08:17 Total Bilirubin 0.5 mg/dl (0.2-1.0) 07/03/23 16:32 AST 24 U/L (13-39) 07/03/23 16:32 ALT 16 U/L (7-52) 07/03/23 16:32 Alkaline Phosphatase 65 U/L (34-104) 07/03/23 16:32 Troponin I High Sens 400.5 pg/ml (0-14) H* 07/04/23 20:21 Total Protein 7.4 gm/dl (6.0-8.3) 07/03/23 16:32 Albumin 4.6 gm/dl (3.4-5.0) 07/03/23 16:32 Globulin 2.8 gm/dl (2.5-4.0) 07/03/23 16:32 Albumin/Globulin Ratio 1.6 (0.9-2) 07/03/23 16:32 Triglycerides 117 mg/dl (0-150) 07/04/23 08:17 Cholesterol 132 mg/dl (0-200) 07/04/23 08:17 LDL Cholesterol, Calc 37 mg/dl 07/04/23 08:17 VLDL Cholesterol, Calc 23 mg/dl (0-30) 07/04/23 08:17 HDL Cholesterol 72 mg/dl 07/04/23 08:17 Cholesterol/HDL Ratio 1.8 (0-5) 07/04/23 08:17 Lipase 11 U/L (11-82) 07/03/23 16:32 Urine Color Yellow 07/03/23 22:02 Urine Appearance Clear (Clear) 07/03/23 22:02 Urine pH 7.0 (4.5-7.5) 07/03/23 22:02 Ur Specific [place] > 1.045 (1.000-1.030) H 07/03/23 22:02 Urine Protein Negative (Negative) 11/13/23 22:02 Urine Glucose (UA) Negative (Negative) 07/03/23 22:02 Urine Ketones Negative (Negative) 07/03/23 22:02 Urine Blood Negative (Negative) 07/03/23 22:02 Urine Nitrite Negative (Negative) 07/03/23 22:02 Urine Bilirubin Negative (Negative) 07/03/23 22:02 Urine Urobilinogen Negative (Negative) 07/03/23 22:02 Ur Leukocyte Esterase Negative (Negative) 07/03/23 22:02 Impressions Abdomen/Pelvis CT 07/03/23 16:[address] WITH IV CONTRAST CT DOSE: 736.38 mGy.cm HISTORY: Acute right upper quadrant abdominal pain R periumbilical/RUQ abd pain TECHNIQUE: Multiaxial CT images of the abdomen and pelvis were performed following the IV administration of 93 cc of Optiray, A dose lowering technique was utilized adhering to the principles of ALARA. COMPARISON STUDY: GI study 09/16/2021 FINDINGS: Clear lung bases. No free air identified. The spleen is enlarged measuring up to 13.5 cm is in length. There is a small amount of abdominal pelvic ascites. Unremarkable pancreas and adrenal glands. 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 Unremarkable gallbladder and mildly enlarged liver. Patent portal vein. Cysts of the kidneys measure up to 5.8 cm on the left. No hydronephrosis. Unremarkable urinary bladder. Hysterectomy. No abdominal aortic aneurysm or lymphadenopathy. Postoperative changes at the gastroesophageal junction. Mild mesenteric edema. Scattered small and large bowel air-fluid levels. Limited study without the use of enteric contrast. Noninflamed appendix. Unremarkable soft tissues. Lumbar levoscoliosis. No acute fracture. IMPRESSION: 1. No bowel obstruction or pneumoperitoneum. 2. Scattered small and large bowel air-fluid levels may be physiologic or represent an ileus/enteritis. 3. Small volume of abdominopelvic ascites. 4. Limited exam without use of enteric contrast. No CT evidence of acute appendicitis. 5. Mild Hepatosplenomegaly. ACT 112: Negative or not required by law. The above report was generated using voice recognition software. It may contain grammatical, syntax or spelling errors. Electronically signed by: Gulshan Santamaria M.D. 07/03/2023 7:04 PM Liver Ultrasound 11/15/23 15:49 US liver CLINICAL HISTORY: Epigastric pain. Evaluate for gallstones. COMPARISON STUDY: CT of the abdomen and pelvis July 03, 2023. FINDINGS: No hepatic lesions are identified. Liver is sonographically normal. There is no biliary ductal dilatation. The common bile duct measures 4 mm in caliber. The gallbladder is normal. There are no gallstones. Pancreas is obscured by overlying bowel gas. There is no right hydronephrosis. IMPRESSION: No significant abnormality within the right upper quadrant by sonography. ACT 112: Negative or not required by law. Electronically signed by: Jesu Rizo M.D. 07/05/2023 1:13 PM Pending Results Patient Have Any Pending Studies at Discharge: No Discharge Instructions Given to Patient (Per Discharging Provider) PLEASE REFER TO YOUR NEW MEDICATION LIST AND FOLLOW INSTRUCTIONS CAREFULLY. YOUR NEW MEDICATIONS INCLUDE: PROTONIX 40MG TWICE A DAY for GERD take at least 30 minutes before meal TOPROL XL 12.5MG DAILY ASPIRIN 81 MG DAILY always take with a full stomach CRESTOR 5MG DAILY MIRALAX DAILY PLEASE CALL YOUR PRIMARY CARE PHYSICIAN OR RETURN TO THE ER IF WITH WORSENING OF SYMPTOMS, INCLUDING ABDOMINAL PAIN, NAUSEA/VOMITING, PROBLEMS WITH BOWEL MOVEMENT, CHEST PAIN, SHORTNESS OF BREATH, DIZZINESS, ETC FOLLOW UP WITH PRIMARY CARE PHYSICIAN OUTLINED ABOVE. YOU NEED TO ALSO FOLLOW UP WITH THE PIPING DESIGN SPECIALIST IN [address] MCGOWAN CAN HELP SET UP THE APPOINTMENT ON YOUR FOLLOW UP VISIT. TAKE CARE. Total Time Total Time Spent Total Time Spent (In Minutes): >30 minutes
== END 2023-07-06 12:05 | disposition home or self-care (01) | DRG 282 ==
LOC: ED 16:07 → 2S 20:48 → SUATTDRO 20:48 → 2S 22:22